=== PATIENT | male | born 1945 | race Caucasian/White ===

== ENCOUNTER → 2017-12-11 | Outpatient (CLI) | payer OTHER | END | disposition home or self-care (01) | LOC: LABWHC1 09:38 | PROVIDERS: ATTEND Orthopaedic Surgery | DX: Z01.812 Encounter for preprocedural laboratory examination (principal) | CPT/HCPCS: 87070 ==

== ENCOUNTER 2017-12-23 06:13 | Inpatient (IN) | payer OTHER ==
[2017-12-15 11:21] VITALS: BMI 40.6
--- NOTE | 2017-12-22 10:11 | HP ---
HISTORY AND PHYSICAL CHIEF COMPLAINT: Right hip pain. HISTORY OF PRESENT ILLNESS: The patient is a 72-year-old male who presents with progressive right hip pain secondary to osteoarthrosis. He notes the pain has worsened over the past 6 months. He has pain with any weightbearing activities. It limits him. He has been limping. He has tried anti-inflammatory medications with only partial temporary relief. PAST MEDICAL HISTORY: Significant for arthritis, depression, migraines in addition to hyperlipidemia and sleep apnea. PAST SURGICAL HISTORY: Significant for tonsillectomy and sinus surgery. FAMILY HISTORY: None known. SOCIAL HISTORY: Negative for current tobacco or alcohol use. REVIEW OF SYSTEMS: Sixteen point review of systems otherwise is reviewed and is noncontributory. PHYSICAL EXAMINATION: On examination, the patient is approximately 6 foot 3, 360 pounds of endomorphic habitus. HEENT exam is nonfocal. Neck is supple. He has passive motion right hip, flexion 75 degrees, external rotation with the hip flexed 60 degrees, internal rotation is -5 degrees with pain. He has approximately 1 cm clinical shortening of the right lower extremity compared to the left. His distal neurovascular exam otherwise appears intact in the right lower extremity. AP and lateral views of the right hip obtained in the office show severe osteoarthrosis with [id number] changes. IMPRESSION: 1. Right hip severe osteoarthrosis. 2. Increased body mass index. RECOMMENDATIONS: I talked to the patient at length regarding his condition and treatment options. At this point, he is quite symptomatic and opts to proceed with surgery. We will plan to proceed with right total hip arthroplasty. We will institute DVT prophylaxis postoperatively. DELORES / ADAN: [id number] /
[~2017-12-23 06:13] MED LIST: ACETAMINOPHEN TAB 500 MG TAB PO ONE; DEXAMETHASONE SOD PHOSPHATE 10 MG/ML 1 ML VIAL IV ONE; HYDROmorphone 0.5 MG/0.5 ML SYRINGE IVP PRN; LIDOCAINE 1% 20 ML VIAL (10MG/ML) FOR IV START INTRADERMA PRN; MELOXICAM 7.5 MG TAB PO ONE; MIDAZOLAM 2 MG/2 ML VIAL IV PRN; MORPHINE SULFATE 2 MG/ML SYRINGE IV PRN; ONDANSETRON ODT 4 MG TAB PO ONE; SCOPOLAMINE 1.5MG/72HR PATCH TRANSDERM ONE; TRANEXAMIC ACID 1,000 MG in SODIUM CHLORIDE 0.9% 50 ML IVPB ONE
[2017-12-23] MEDS: LACTATED RINGERS 1,000 ML IV SCH (07:24)
[2017-12-23] MEDS ORDERED: ONDANSETRON 4 MG/2 ML VIAL IVP ONE (07:27)
[2017-12-23] MEDS ORDERED: SODIUM CHLORIDE 0.9% 100 ML BAG ONE (08:06)
[2017-12-23] MEDS ORDERED: fentaNYL (PF) 50 MCG/ML 2 ML AMP ONE (08:06)
[2017-12-23] MEDS ORDERED: TRANEXAMIC ACID 1,000 MG/10 ML VIAL ONE (08:06)
[2017-12-23] MEDS ORDERED: MIDAZOLAM 2 MG/2 ML VIAL ONE (08:06)
[2017-12-23] MEDS ORDERED: PROPOFOL 10 MG/ML 20 ML VIAL IV ONE (08:06)
[2017-12-23] MEDS ORDERED: ceFAZolin 3,000 MG in SODIUM CHLORIDE 0.9% IRRIGATIO 3,000 ML IRRIGATION ONE (08:38)
[2017-12-23] MEDS ORDERED: LACTATED RINGERS 1,000 ML IV ONE (09:32)
[2017-12-23] MEDS ORDERED: MORPHINE SULFATE 4 MG/ML SYRINGE IV PRN ×2 (10:00)
[2017-12-23] MEDS ORDERED: MORPHINE SULFATE 4 MG/ML SYRINGE IVP PRN (10:00)
[2017-12-23] MEDS ORDERED: ACETAMINOPHEN TAB 325 MG TAB PO PRN (10:00)
[2017-12-23] MEDS ORDERED: HYDROcodone/APAP 7.5-325MG 1 EACH TAB PO PRN (10:00)
[2017-12-23] MEDS ORDERED: MAGNESIUM HYDROXIDE 2,400 MG/10 ML CUP PO PRN (10:00)
[2017-12-23] MEDS ORDERED: NALOXONE 0.4 MG/ML 1 ML VIAL IV PRN (10:00)
[2017-12-23] MEDS ORDERED: ONDANSETRON 4 MG/2 ML VIAL IVP PRN ×2 (10:00→21:07)
[2017-12-23] MEDS: fentaNYL (PF) 50 MCG/ML 2 ML AMP IV ONE ×2 (10:35→11:30)
--- NOTE | 2017-12-23 10:36 | P.OP ---
Date of Procedure: 12/23/17 Preoperative Diagnosis: Right hip severe osteoarthrosis Postoperative Diagnosis: Same Procedure(s) Performed: Right total hip arthroplasty-lateral approach Implants: Depuy Corail size 13 KLA press-fit femoral stem, 36 mm +5 cobalt chrome femoral head, 62 mm Crocker acetabular shell with neutral polyethylene liner. Anesthesia: spinal Surgeon: Michael Jimenez Director Rehabilitation Program #1: Franklin Reyes Estimated Blood Loss (ml): 300 Pathology: other (Femoral head) Condition: stable Disposition: PACU Indications for Procedure: The patient is a 72-year-old male who presents with progressive right hip pain secondary to osteoarthrosis despite conservative measures. A discussion of the risks and benefits of operative intervention versus continued conservative measures was made with the patient. He opted to proceed with surgery. Operative risks to include infection, neurovascular injury, development of blood clots, possible component loosening, possible leg length discrepancy, possible dislocation and need for subsequent procedures was discussed. Informed consent was obtained. Operative Findings: As below Description of Procedure: The patient was brought to the operating room, and after induction of spinal anesthesia was placed in the lateral decubitus position. The bony prominences were appropriately padded. The pelvis was stabilized perpendicular to the floor with a pegboard. The right lower extremity was prepped and draped in normal fashion. Previous preoperative templating had been performed to estimate component positioning and sizes. A 15 cm incision was then made centered over the greater trochanter extending superiorly to level ASIS and distally in line with the femoral shaft. The skin and subcutaneous tissues were divided sharply. Electrocautery was used for hemostasis. The fascia michael and gluteus jazlyn fascia was split in line with the skin incision. The muscle fibers were bluntly dissected proximally. A self-retaining retractor was then placed. The anterior and posterior margins of the gluteus medius muscles identified and the anterior two thirds detached from the greater trochanter with electrocautery. The gluteus minimus tendon was identified and detached in a similar fashion. The capsular layer was identified. A wide capsulotomy was performed. The hip was gently dislocated. The head was then resected with a sagittal saw at a 45 angle to the shaft proximately 1 1/2 cm above the level of the lesser trochanter. The head was then extracted. Attention was then paid towards preparing the acetabulum. Retractors were placed anterior and posteriorly. The remaining labral and capsular tissues debrided sharply clearly defining the acetabular margins. I began reaming with a 52 mm reamer taking care to initially medialize, then reaming at 45 of abduction and 20 of anteversion. Sequential reaming is performed up to 61 mm. This was done to a bleeding bony surface. A trial 62 mm acetabular shell was inserted in the same orientation and was fully seated. There was good rim fit and stability. The final implant was inserted in the same orientation and was fully seated. Again there was good rim fit and stability. With his increased body mass index I decided to add a 6.5 mm x 30 mm cancellus screw for additional fixation. Good purchase was obtained. A neutral polyethylene liner was gently impacted. Care was taken to avoid any soft tissue interposition. Pulsatile lavage was utilized. Attention was then paid towards preparing the proximal femur. A box chisel was used to open the metaphyseal region. A canal finder was used to find the femoral canal. Sequential broaching was performed with the leg perpendicular to the floor in 15 of anteversion up to a size 13 broach. A calcar mill was used to fashion the medial calcar. I utilized the KLA neck along with a 36 mm +5 trial head. The hip was gently reduced. It was taken through range of motion. I good stability in flexion and extension with internal and external rotation. I felt there was adequate holiness of soft tissue tension. The hip was gently dislocated. The trial components were then removed. The final size 13 collared KLA press-fit stem was inserted with the leg perpendicular to the floor in 15 of anteversion. This was fully seated. There was good rotational stability. A 36 mm +5 cobalt chrome femoral head was gently impacted. The hip was gently reduced. Again it was taken through range of motion and felt to be stable in flexion and extension with internal and external rotation. Again I felt there was adequate holiness of soft tissue tension. Pulsatile lavage was again utilized. The gluteus medius and minimus tendons reattached the greater trochanter with #2 Ethibond suture. A deep drain was placed exiting laterally. The fascia michael and the gluteus jazlyn fascia was closed with running #2 Ethibond suture. The deep subcutaneous tissues were reapproximated with interrupted 0 Vicryl suture. Subcu tissues reapproximated interrupted 2-0 Vicryl sutures. The skin was reapproximated with 3-0 strata fix suture. Skin tape and adhesive was applied. A sterile dressing was applied. The patient was then awoken from sedation and transferred to recovery room in good condition. Blood loss was estimated at 300 mL. No complications were incurred. Sponge and needle counts were correct at the end the case.
--- NOTE | 2017-12-23 10:53 | XR ---
EXAMINATION TYPE: XR Hip Limited RT DATE OF EXAM: 12/23/2017 COMPARISON: NONE HISTORY: 72-year-old male status post hip surgery, assess surgical alignment TECHNIQUE: Portable AP view FINDINGS: Image shows placement of right hip total arthroplasty. Both acetabular cup and femoral short stemmed components appear well-seated without periprosthetic fracture. Alignment grossly anatomic. A surgical drain is present. IMPRESSION: Uncomplicated postoperative appearance right total hip arthroplasty.
[2017-12-23 13:08] VITALS: RESP 16
[2017-12-23] MEDS: traMADol 50 MG TAB PO SCH ×3 (13:20→23:05)
--- NOTE | 2017-12-23 13:58 | P.CONS ---
History of Present Illness - History of Present Illness he patient is a 72-year-old male who presents with progressive right hip pain secondary to osteoarthrosis , migraine, sleep apnea, depression Patient was admitted for right hip surgery for his history of arthritis after he failed outpatient medical management and he opted to proceed with surgery We have been consulted for medical management Review of Systems 14 point systemic review were negative except as mentioned in HPI Past Medical History Past Medical History: Hearing Disorder / Deafness, Osteoarthritis (OA), Sleep Apnea/CPAP/BIPAP Additional Past Medical History / Comment(s): RT HIP OA. LT FOOT ORTHOTIC. USES CPAP. History of Any Multi-Drug Resistant Organisms: None Reported Past Surgical History: Tonsillectomy Additional Past Surgical History / Comment(s): SINUS SURGERY. Past Anesthesia/Blood Transfusion Reactions: No Reported Reaction Additional Past Anesthesia/Blood Transfusion Reaction / Comm: UNKNOWN FAMILY HX , ADOPTED. Past Psychological History: Depression Smoking Status: Former smoker Past Alcohol Use History: Rare Additional Past Alcohol Use History / Comment(s): SMOKED 6-7 YEARS, 1PPD EST, QUIT 1977 Past Drug Use History: None Reported - Past Family History Father Family Medical History: Unable to Obtain Mother Family Medical History: No Reported History Medications and Allergies Home Medications Medication Instructions Recorded Confirmed Type Aspirin [Adult Low Dose Aspirin EC] 81 mg PO DAILY 12/15/17 12/23/17 History Citalopram Hydrobromide [CeleXA] 20 mg PO DAILY 12/15/17 12/23/17 History Multivitamins, Thera [Multivitamin 1 tab PO DAILY 12/15/17 12/23/17 History (formulary)] Naproxen Sodium [Aleve] 220 mg PO BID 12/15/17 12/23/17 History Naproxen [Naprosyn] 500 mg PO Q12HR 12/15/17 12/23/17 History SUMAtriptan SUCCINATE [Imitrex] 100 mg PO BID PRN 12/15/17 12/23/17 History Simvastatin [Zocor] 40 mg PO HS 12/15/17 12/23/17 History buPROPion [Wellbutrin] 75 mg PO BID 12/15/17 12/23/17 History Rivaroxaban [Xarelto] 10 mg PO DAILY #28 tab 12/23/17 Rx Allergies Allergy/AdvReac Type Severity Reaction Status Date / Time No Known Allergies Allergy Verified 12/23/17 10:31 Physical Exam Vitals: Vital Signs Temp Pulse Resp BP Pulse Ox 12/23/17 12:15 98.3 F 60 16 146/80 99 12/23/17 12:00 60 20 133/83 96 12/23/17 11:45 61 16 133/83 97 12/23/17 11:30 54 L 16 128/76 97 12/23/17 11:15 57 L 16 133/75 95 12/23/17 11:00 56 L 16 127/71 95 12/23/17 10:45 57 L 16 135/70 93 L 12/23/17 10:30 57 L 20 122/71 95 12/23/17 10:22 97.6 F 58 L 28 H 127/70 96 12/23/17 07:11 98.7 F 81 16 144/86 98 Intake and Output 12/22/17 12/23/17 12/23/17 22:59 06:59 14:59 Intake Total 2151 Output Total 745 Balance 1406 Intake: IV 2151 Output: Drainage 70 Right Hip 70 Urine 275 Estimated Blood Loss 400 Other: Voiding Method Indwelling Catheter Weight 147.418 kg Constitutional: No acute distress, conversant, pleasant Eyes: Anicteric sclerae, moist conjunctiva, no lid-lag PERRLA ENMT: NC/AT Oropharynx clear, no erythema, exudates Neck: Supple, FROM, no masses, or JVD No carotid bruits No thyromegaly Lungs: Clear to auscultation Clear to percussion Normal respiratory effort, no accessory muscle use Cardiovascular: Heart regular in rate and rhythm, No murmurs, gallops, or rubs No peripheral edema Abdominal: Soft Nontender, no guarding, rebound or rigidity Abdomen moving with respiration Normoactive bowel sounds No hepatomegaly, No splenomegaly No palpable mass No abdominal wall hernia noted Skin: Normal temperature, tone, texture, turgor No induration No subcutaneous nodules No rash, lesions No ulcers Extremities: No digital cyanosis No clubbing Pedal pulses intact and symmetrical Radial pulses intact and symmetrical Normal gait and station No calf tenderness Psychiatric: Alert and oriented to person, place and time Appropriate affect Intact judgement Neuro: Muscles Strength 5/5 in all 4 extremities Sensation to light touch grossly present throughout Cranial nerves II-XII grossly intact No focal sensory deficits Assessment and Plan Assessment: osteoarthritis, status post total right hip arthroplasty Migraine Sleep apnea Plan: patient is status post right hip arthroplasty, with history of migraine and sleep apnea patient looks his stable from a medical standpoint Imitrex when necessary Continue with GI, DVT,prophylaxis and pain treatment as per primary team recommend the patient follow-up with his PCP within one week after discharge Thank you for taking the chance to take care of this patient, please feel free to contact us for further questioning or clarification
[2017-12-23] MEDS: SUMAtriptan SUCCINATE 50 MG TAB PO PRN ×2 (14:38→19:30)
[2017-12-23] MEDS: DIAZEPAM 5 MG TAB PO PRN (14:39)
[2017-12-23] MEDS ORDERED: ceFAZolin 3 GM in SODIUM CHLORIDE 0.9% 100 ML IVPB SCH (16:00)
[2017-12-23] MEDS: SENNOSIDES-DOCUSATE SODIUM 1 EACH TAB PO SCH (19:19)
[2017-12-24] MEDS: HYDROcodone/APAP 5-325MG 1 EACH TAB PO PRN ×3 (01:31→20:57)
[2017-12-24] MEDS: LACTATED RINGERS 1,000 ML IV SCH (02:54)
[2017-12-24] MEDS ORDERED: MORPHINE ORAL SOLN 10 MG/5 ML CUP PO PRN ×3 (07:55→07:56)
[2017-12-24 07:57] LABS: Basophils % (A) 0 %; Eosinophils # (A) 0.1 k/uL (0-0.7); Eosinophils % (A) 1 %; HCT 37.4 % (39.0-53.0); Lymphocytes # (A) 1.3 k/uL (1.0-4.8); Lymphocytes % (A) 13 %; MCH 28.1 pg (25.0-35.0); MCV 87.7 fL (80.0-100.0); Mean Platelet Volume 8.9; Monocytes # (A) 0.9 k/uL (0-1.0); Monocytes % (A) 9 %; Neutrophils # (A) 7.6 k/uL (1.3-7.7); Neutrophils % (A) 75 %; Platelet Count 155 k/uL (150-450); RBC 4.26 m/uL (4.30-5.90); RDW 13.8 % (11.5-15.5); WBC 10.1 k/uL (3.8-10.6)
[2017-12-24] MEDS: FAMOTIDINE 20 MG TAB PO SCH (08:19)
[2017-12-24] MEDS: RIVAROXABAN 10 MG TAB PO SCH (08:19)
[2017-12-24] MEDS: traMADol 50 MG TAB PO SCH ×4 (09:42→23:42)
[2017-12-24] MEDS: SUMAtriptan SUCCINATE 50 MG TAB PO PRN (18:03)
[2017-12-24] MEDS: SENNOSIDES-DOCUSATE SODIUM 1 EACH TAB PO SCH (20:57)
[2017-12-24] MEDS: DIAZEPAM 5 MG TAB PO PRN (21:03)
[2017-12-25] MEDS: LACTATED RINGERS 1,000 ML IV SCH (00:33)
[2017-12-25 03:04] VITALS: PULSE 70
[2017-12-25] MEDS: HYDROcodone/APAP 5-325MG 1 EACH TAB PO PRN ×2 (05:18→12:03)
[2017-12-25 08:32] VITALS: BP 110/68; TEMP 98.2
[2017-12-25] MEDS: RIVAROXABAN 10 MG TAB PO SCH (08:43)
[2017-12-25] MEDS: traMADol 50 MG TAB PO SCH ×2 (08:43→14:12)
[2017-12-25] MEDS: FAMOTIDINE 20 MG TAB PO SCH (09:22)
--- NOTE | 2017-12-25 11:36 | P.PN ---
Subjective Progress Note Date: 12/25/17 Principal diagnosis: Status post right total hip arthroplasty Patient is seen today resting in his hospital chair. He appears comfortable, he denies any acute pain. He states that the headache has improved significantly since yesterday. He continues to ambulate well with therapy. He denies any headaches, lightheadedness, chest pain or shortness of breath. Objective - Vital Signs Vital signs: Vital Signs Temp 98.2 F 12/25/17 07:30 Pulse 70 12/25/17 07:30 Resp 16 12/25/17 07:30 BP 110/68 12/25/17 07:30 Pulse Ox 94 L 12/25/17 07:30 Intake & Output 12/24/17 12/25/17 12/25/17 18:59 06:59 18:59 Intake Total 2078 2210 150 Output Total 1100 1180 Balance 978 1030 150 Intake: Oral 2078 2210 150 Output: Urine 1100 [address] Urethral 700 Other: Voiding Method Indwelling Catheter Urinal Toilet Urinal # Voids 1 2 1 - Exam Right lower extremity: Incisions clean, dry and intact. Minimal soft tissue swelling and ecchymosis present around the incision. The calf is soft, no tenderness with palpation. Plantar flexion, dorsiflexion, EHL, FHL are intact. Dorsal pedis pulses 2+, his sensory exam to light touch is intact. - Labs CBC & Chem 7: 12/24/17 07:19 Assessment and Plan Plan: Assessment: 1. Postop day #2 status post right total hip arthroplasty Plan: 1. Pain control, we'll discharge home on oral medications 2. GI and DVT prophylaxis, we'll discharge home on Eliquis 2.5 mg twice a day for 30 days 3. Home therapy and nursing after discharge 4. Wound care instructions were discussed with patient at bedside today 5. Medical recommendations 6. Discharge planning: Patient will be discharged home today Time with Patient: Less than 30
--- NOTE | 2017-12-25 11:40 | P.DS ---
Providers Date of admission: 12/23/17 06:13 Expected date of discharge: 12/25/17 Attending physician: Michael Jimenez Consults: 12/23/17 10:04 Consult Physician Routine Consulting Provider: Saima Farah Consult Reason/Comments: medical management Do you want consulting provider notified?: Yes Primary care physician: [facility] Hospital Course: Date of admission: 12/23/2017 Date of discharge: 12/25/2017 Admission diagnosis: Status post right total hip arthroplasty Discharge diagnosis: Same Attending physician: Dr. Jimenez Surgical procedures: Right total hip arthroplasty Brief history: Patient is a 72-year-old male with a history of with progressive primary right hip osteoarthritis. At this point patient has failed conservative treatment measures and has opted to proceed with a elective right total hip arthroplasty. Hospital course: Details of patient's surgery can be found in operative report. Patient tolerated the procedure well and was subsequently transported to orthopedic floor. Patient's orthopeidc and medical care was provided daily. Patient had daily laboratory tests performed for evaluation of overall blood counts. Patient had daily physical therapy to include strengthening range of motion as well as education with walker ambulation. Patient was treated with Xarelto for their postoperative DVT prophylaxis during their inpatient stay. Patient was noted to have a relatively uneventful postoperative course. Patient reported satisfactory pain control with oral pain medications by postoperative day 0. Patient showed satisfactory progress with physical therapy. Patient moved steadily through the program and had no difficulty meeting the goals by postoperative day 2. Given patient's otherwise satisfactory course and having met physical therapy goals, plan is to discharge patient home on postoperative day 2. Discharge condition/disposition: Patient will be discharged home in stable condition. Discharge medications: Instructions are given on resumption of patient's normal daily medications per primary care recommendation, in addition patient will be prescribed Ruthven 5 mg/325 mg, Colace 100mg, Eliquis 2.5mg. Discharge instructions: 1. Wound care and infection precautions, keep incision dry and covered while showering, no lotions, creams, moisturizers. No soaking, tubs, pools, hottubs. Do not scrub over the incision. 2. Weight-bear as tolerated with walker / cane until follow-up. 3. Ice and elevate when necessary. Do not exceed 20 minutes per hour with ice pack. 4. Utilize compression sleeve until seen at first follow up appointment. 5. Visiting nursing care. 6. Home physical therapy 7. Pain meds and anticoagulants per prescription. 8. Pain medication has potential to cause constipation. Increase oral fluid and fiber intake. Contact primary care provider if you have not had a bowel movement within 48 hours after discharge 9. No anti-inflammatory medication until discussed at first post operative visit, this including Motrin, Aleve, Mobic, Diclofenac. 10. Follow up in office at 2 weeks postop with Elvis Reyes PA-C 11. Follow up with your primary care doctor 7-10 days after discharge. 12. Contact [facility] with any questions, . Procedures: Right total hip arthroplasty Patient Condition at Discharge: Good Plan - Discharge Summary Discharge Rx Participant: Yes New Discharge Prescriptions: New Apixaban [Eliquis] 2.5 mg PO BID #60 tab Docusate [Colace] 100 mg PO DAILY #30 capsule Hydrocodone/Acetaminophen [Ruthven 5-325] 1 - 2 each PO Q6HR PRN #60 tab PRN Reason: Pain No Action buPROPion [Wellbutrin] 75 mg PO BID Simvastatin [Zocor] 40 mg PO HS Citalopram Hydrobromide [CeleXA] 20 mg PO DAILY SUMAtriptan SUCCINATE [Imitrex] 100 mg PO BID PRN PRN Reason: Migraine Headache Aspirin [Adult Low Dose Aspirin EC] 81 mg PO DAILY Multivitamins, Thera [Multivitamin (formulary)] 1 tab PO DAILY Discharge Medication List Aspirin [Adult Low Dose Aspirin EC] 81 mg PO DAILY 12/15/17 [History] Citalopram Hydrobromide [CeleXA] 20 mg PO DAILY 12/15/17 [History] Multivitamins, Thera [Multivitamin (formulary)] 1 tab PO DAILY 12/15/17 [History ] SUMAtriptan SUCCINATE [Imitrex] 100 mg PO BID PRN 12/15/17 [History] Simvastatin [Zocor] 40 mg PO HS 12/15/17 [History] buPROPion [Wellbutrin] 75 mg PO BID 12/15/17 [History] Apixaban [Eliquis] 2.5 mg PO BID #60 tab 12/25/17 [Rx] Docusate [Colace] 100 mg PO DAILY #30 capsule 12/25/17 [Rx] Hydrocodone/Acetaminophen [Ruthven 5-325] 1 - 2 each PO Q6HR PRN #60 tab 12/25/17 [Rx] Follow up Appointment(s)/Referral(s): Franklin Reyes, [facility] [PHYSICIAN [employer]] - 01/07/18 3:00 pm [facility] Vis[facility] Nurse, [NON-STAFF] - [facility],Clinic [Primary Care Provider] - 01/01/18 3:00 pm ([phone]. With Bryce Starkey) Activity/Diet/Wound Care/Special Instructions: Orthopedic Discharge Instructions: 1. Wound care and infection precautions, keep incision dry and covered while showering, no lotions, creams, moisturizers. No soaking, pools, hot tubs. Do not scrub over incision. 2. Weight-bear as tolerated with walker / cane until follow-up. 3. Ice and elevate when necessary. Do not exceed 20 minutes per hour with ice pack. 4. Utilize compression sleeve until seen at first follow up appointment. 5. Visiting nursing care. 6. Home physical therapy. 7. Pain meds and anticoagulants per prescription. 8. Pain medication has potential to cause constipation. Increase oral fluid and fiber intake. Contact primary care provider if you have not had a bowel movement within 48 hours after discharge. 9. No anti-inflammatory medication until discussed at first post operative visit, this including Motrin, Aleve, Mobic, Diclofenac. 10. Follow up in office at 2 weeks postop with Elvis Reyes PA-C 11. Follow up with your primary care doctor 7-10 days after discharge. 12. Contact [facility] with any questions, . Discharge Disposition: HOME WITH HOME HEALTH SERVICES
== END 2017-12-25 15:00 | disposition home health service (06) | DRG 470 ==
LOC: 2ORMAIN 06:13 → 3SUR 11:49
PROVIDERS: ADMIT Orthopaedic Surgery; ATTEND Orthopaedic Surgery
PROC: 0SR902A Replacement of Right Hip Joint with Metal on Polyethylene Synthetic Substitute, Uncemented, Open Approach (ICD-10-PCS; principal; 2017-12-23 08:00)
DX: M16.11 Unilateral primary osteoarthritis, right hip (principal); Z68.41 Body mass index [BMI] 40.0-44.9, adult; F32.9 Major depressive disorder, single episode, unspecified; G43.909 Migraine, unspecified, not intractable, without status migrainosus; E78.5 Hyperlipidemia, unspecified; G47.30 Sleep apnea, unspecified; H91.90 Unspecified hearing loss, unspecified ear; E66.9 Obesity, unspecified; R73.03 Prediabetes; Z79.82 Long term (current) use of aspirin; Z79.1 Long term (current) use of non-steroidal anti-inflammatories (NSAID); Z79.899 Other long term (current) drug therapy; Z79.01 Long term (current) use of anticoagulants; Z87.891 Personal history of nicotine dependence
CPT/HCPCS: 36415; 73501; 85025; 86850; 86900; 86901; 88300; 94760

== ENCOUNTER 2019-01-25 10:48 | Day surgery (SDC) | payer OTHER ==
[2019-01-22 09:05] VITALS: BMI 41.2
[~2019-01-25 10:48] MED LIST changes: -ACETAMINOPHEN TAB 500 MG TAB PO ONE; -DEXAMETHASONE SOD PHOSPHATE 10 MG/ML 1 ML VIAL IV ONE; -HYDROmorphone 0.5 MG/0.5 ML SYRINGE IVP PRN; +LACTATED RINGERS 1,000 ML IV SCH; -MELOXICAM 7.5 MG TAB PO ONE; -MIDAZOLAM 2 MG/2 ML VIAL IV PRN; -MORPHINE SULFATE 2 MG/ML SYRINGE IV PRN; -ONDANSETRON ODT 4 MG TAB PO ONE; -SCOPOLAMINE 1.5MG/72HR PATCH TRANSDERM ONE; -TRANEXAMIC ACID 1,000 MG in SODIUM CHLORIDE 0.9% 50 ML IVPB ONE
[2019-01-25 11:05] VITALS: TEMP 98.9
[2019-01-25] MEDS ORDERED: PROPOFOL 10 MG/ML 20 ML VIAL IV ONE (12:36)
[2019-01-25] MEDS ORDERED: LIDOCAINE 1% INJ 10MG/ML (20 ML MDV) ONE (12:36)
--- NOTE | 2019-01-25 13:08 | P.PCN ---
Date of Procedure: 01/25/19 Procedure(s) Performed: Procedure: Total colonoscopy. Preoperative diagnosis: Screening for neoplasia. Postoperative diagnosis: Sigmoid diverticulosis with no evidence of acute diverticulitis, strictures, significant polyps or cancer. Preparation: HalfLytely prep. Sedation: Was provided by anesthesia. Brief clinical history: The patient is a 73-year-old male scheduled for this evaluation for screening for neoplasia. The patient had a prior exam more than 25 years ago and he believes he may have had a polyp or tumor removed at that time. He has no abdominal complaints, bleeding or anemia. Procedure: With the patient on his left lateral decubitus position and after informed consent and adequate sedation, the perianal area was inspected and it did not show any fissures or fistulas. There were no masses felt on digital rectal examination. The Olympus CFH 190L video colonoscope was then inserted in the rectum in the usual fashion and advanced to the cecum. The preparation was less than ideal on the right side and cecum with thick fecal secretions and thick debris. Several diverticular orifices were seen scattered in the sigmoid with no definite of acute diverticulitis or strictures. No polyps or tumors were seen. I retroflexed the endoscope in the rectum before the endoscope was withdrawn. The patient tolerated the procedure well. Plan: The patient was reassured. Discussed dietary measures. In light of his less than ideal preparation on the right side and cecum, I suggested repeat this exam in 5 years. He will follow up with you as planned.
[2019-01-25 13:10] VITALS: RESP 18
[2019-01-25 13:25] VITALS: BP 120/71; PULSE 64
== END 2019-01-25 13:52 | disposition home or self-care (01) ==
LOC: ORWHC2ENDO 10:48
DX: Z12.11 Encounter for screening for malignant neoplasm of colon (principal); K57.30 Diverticulosis of large intestine without perforation or abscess without bleeding; G47.33 Obstructive sleep apnea (adult) (pediatric); F39 Unspecified mood [affective] disorder; Z87.891 Personal history of nicotine dependence; Z79.899 Other long term (current) drug therapy; Z79.82 Long term (current) use of aspirin; Z79.1 Long term (current) use of non-steroidal anti-inflammatories (NSAID)
CPT/HCPCS: J2001; J2704; G0121

== ENCOUNTER 2021-07-19 09:10 | Emergency (ER) | payer OTHER ==
[2021-07-19 09:23] VITALS: TEMP 98.5
[2021-07-19] MEDS ORDERED: ACETAMINOPHEN TAB 500 MG TAB PO STA (09:35)
[2021-07-19] MEDS ORDERED: SODIUM CHLORIDE 0.9% 500 ML 500 ML IV ONE ×2 (09:35→12:11)
[2021-07-19] MEDS ORDERED: MORPHINE SULFATE 4 MG/ML SYRINGE IVP STA (09:35)
--- NOTE | 2021-07-19 09:38 | ED ---
General Adult HPI - General Chief complaint: Chest Pain Stated complaint: chest tightness, headache Time Seen by Provider: 07/19/21 09:25 Source: patient, RN notes reviewed, old records reviewed Mode of arrival: wheelchair Limitations: no limitations - History of Present Illness Initial comments: 75-year-old male history of headache presents with worsening headache over the past one week. This has become more severe over the past 24 hours. He has ta petty sumatriptan at home without significant relief. He has a history of migraine headaches. He states he's had a nasal congestion and significant rhinorrhea over the past one week. He is fully vaccinated against coronavirus with 3 total vaccines. He denies fever. He's had some chest tightness. No central chest pain. No vomiting or diarrhea. Chief complaint is headache. - Related Data Home Medications Medication Instructions Recorded Confirmed Aspirin EC [Ecotrin Low Dose] 81 mg PO DAILY 07/19/21 07/19/21 Citalopram Hydrobromide [CeleXA] 20 mg PO DAILY 07/19/21 07/19/21 Meloxicam [Mobic] 15 mg PO DAILY 07/19/21 07/19/21 Multivitamins, Thera [Multivitamin 1 tab PO DAILY 07/19/21 07/19/21 (formulary)] SUMAtriptan SUCCINATE [Imitrex] 100 mg PO DAILY PRN 07/19/21 07/19/21 Simvastatin [Zocor] 40 mg PO HS 07/19/21 07/19/21 buPROPion [Wellbutrin] 75 mg PO TID 07/19/21 07/19/21 Allergies Allergy/AdvReac Type Severity Reaction Status Date / Time No Known Allergies Allergy Verified 07/19/21 12:01 Review of Systems ROS Statement: Those systems with pertinent positive or pertinent negative responses have been documented in the HPI. ROS Other: All systems not noted in ROS Statement are negative. Past Medical History Past Medical History: Osteoarthritis (OA), Sleep Apnea/CPAP/BIPAP Additional Past Medical History / Comment(s): migraines, History of Any Multi-Drug Resistant Organisms: None Reported Past Surgical History: Joint Replacement, Tonsillectomy Additional Past Surgical History / Comment(s): SINUS SURGERY, colonoscopy, rt hip replacement Past Anesthesia/Blood Transfusion Reactions: No Reported Reaction, Unable to Obtain Additional Past Anesthesia/Blood Transfusion Reaction / Comment(s): UNKNOWN FAMILY HX, ADOPTED. Past Psychological History: Depression Smoking Status: Never smoker Past Alcohol Use History: Rare Past Drug Use History: None Reported - Past Family History Father Family Medical History: Unable to Obtain Mother Family Medical History: Unable to Obtain General Exam Limitations: no limitations General appearance: alert, in no apparent distress Head exam: Present: atraumatic, normocephalic Eye exam: Present: normal appearance, PERRL ENT exam: Present: normal exam Neck exam: Present: normal inspection. Absent: tenderness, meningismus Respiratory exam: Present: normal lung sounds bilaterally. Absent: respiratory distress, wheezes Cardiovascular Exam: Present: regular rate, normal rhythm GI/Abdominal exam: Present: soft. Absent: distended, tenderness, guarding Extremities exam: Present: normal inspection, normal capillary refill. Absent: pedal edema Neurological exam: Present: alert, oriented X3, CN II-XII intact. Absent: motor sensory deficit Psychiatric exam: Present: normal affect, normal mood Skin exam: Present: warm, dry, intact. Absent: cyanosis, diaphoretic Course Vital Signs 07/19/21 07/19/21 07/19/21 09:21 10:56 12:27 Temperature 98.5 F Pulse Rate 66 75 75 Respiratory 19 16 16 Rate Blood Pressure 137/87 142/84 137/77 O2 Sat by Pulse 97 96 96 Oximetry EKG Findings - EKG Comments: EKG Findings:: EKG: Sinus rhythm with first-degree AV block, bifascicular block, rate 78, WI interval 244, QRS duration 166, QTC 517, no ST segment elevation. Medical Decision Making - Medical Decision Making 75-year-old male presenting for evaluation of headache. Typical of his normal migraine headache however more severe, gradual in onset. CT is performed which is negative for intracranial hemorrhage or mass effect. On reevaluation he is feeling much better. Headache nearly resolved. I did do a workup including EKG, and laboratory testing including troponin for t his patient because he had complained of some chest tightness associated with an upper respiratory infection. This workup was essentially negative, chest x-rays clear, troponin negative, coronavirus testing negative. Patient reassured. He will follow-up with his primary care physician. Strict return parameters are discussed. - Lab Data Result diagrams: 07/19/21 09:56 07/19/21 09:56 Lab Results 07/19/21 07/19/21 07/19/21 Range/Units 09:56 09:56 09:56 WBC 9.0 (3.8-10.6) k/uL RBC 4.66 (4.30-5.90) m/uL Hgb 13.7 (13.0-17.5) gm/dL Hct 41.8 (39.0-53.0) % MCV 89.8 (80.0-100.0) fL MCH 29.5 (25.0-35.0) pg MCHC 32.8 (31.0-37.0) g/dL RDW 13.0 (11.5-15.5) % Plt Count 185 (150-450) k/uL MPV 7.4 Neutrophils % 80 % Lymphocytes % 11 % Monocytes % 5 % Eosinophils % 2 % Basophils % 1 % Neutrophils # 7.2 (1.3-7.7) k/uL Lymphocytes # 1.0 (1.0-4.8) k/uL Monocytes # 0.4 (0-1.0) k/uL Eosinophils # 0.2 (0-0.7) k/uL Basophils # 0.0 (0-0.2) k/uL PT 9.9 (9.0-12.0) sec INR 0.9 (<1.2) APTT 22.2 (22.0-30.0) sec Sodium (137-145) mmol/L Potassium (3.5-5.1) mmol/L Chloride (98-107) mmol/L Carbon Dioxide (22-30) mmol/L Anion Gap mmol/L BUN (9-20) mg/dL Creatinine (0.66-1.25) mg/dL Est GFR (CKD-EPI)AfAm (>60 ml/min/1.73 sqM) Est GFR (CKD-EPI)NonAf (>60 ml/min/1.73 sqM) Glucose (74-99) mg/dL Calcium (8.4-10.2) mg/dL Magnesium (1.6-2.3) mg/dL Total Bilirubin (0.2-1.3) mg/dL AST (17-59) U/L ALT (4-49) U/L Alkaline Phosphatase (38-126) U/L Troponin I (0.000-0.034) ng/mL Total Protein (6.3-8.2) g/dL Albumin (3.5-5.0) g/dL Coronavirus (PCR) Not Detected (Not Detectd) 07/19/21 07/19/21 Range/Units 09:56 09:56 WBC (3.8-10.6) k/uL RBC (4.30-5.90) m/uL Hgb (13.0-17.5) gm/dL Hct (39.0-53.0) % MCV (80.0-100.0) fL MCH (25.0-35.0) pg MCHC (31.0-37.0) g/dL RDW (11.5-15.5) % Plt Count (150-450) k/uL MPV Neutrophils % % Lymphocytes % % Monocytes % % Eosinophils % % Basophils % % Neutrophils # (1.3-7.7) k/uL Lymphocytes # (1.0-4.8) k/uL Monocytes # (0-1.0) k/uL Eosinophils # (0-0.7) k/uL Basophils # (0-0.2) k/uL PT (9.0-12.0) sec INR (<1.2) APTT (22.0-30.0) sec Sodium 135 L (137-145) mmol/L Potassium 4.4 (3.5-5.1) mmol/L Chloride 102 (98-107) mmol/L Carbon Dioxide 25 (22-30) mmol/L Anion Gap 8 mmol/L BUN 29 H (9-20) mg/dL Creatinine 0.87 (0.66-1.25) mg/dL Est GFR (CKD-EPI)AfAm >90 (>60 ml/min/1.73 sqM) Est GFR (CKD-EPI)NonAf 86 (>60 ml/min/1.73 sqM) Glucose 119 H (74-99) mg/dL Calcium 9.4 (8.4-10.2) mg/dL Magnesium 2.0 (1.6-2.3) mg/dL Total Bilirubin 0.7 (0.2-1.3) mg/dL AST 28 (17-59) U/L ALT 24 (4-49) U/L Alkaline Phosphatase 54 (38-126) U/L Troponin I <0.012 (0.000-0.034) ng/mL Total Protein 6.9 (6.3-8.2) g/dL Albumin 4.2 (3.5-5.0) g/dL Coronavirus (PCR) (Not Detectd) Disposition Clinical Impression: Headache, Viral syndrome Disposition: HOME SELF-CARE Condition: Fair Instructions (If sedation given, give patient instructions): Migraine Headache (ED) Is patient prescribed a controlled substance at d/c from ED?: No Referrals: [facility],Clinic [Primary Care Provider] - 1-2 days Time of Disposition: 12:32
[2021-07-19 10:15] LABS: Basophils % (A) 1 %; Eosinophils # (A) 0.2 k/uL (0-0.7); Eosinophils % (A) 2 %; HCT 41.8 % (39.0-53.0); HGB 13.7 gm/dL (13.0-17.5); Lymphocytes % (A) 11 %; MCH 29.5 pg (25.0-35.0); MCHC 32.8 g/dL (31.0-37.0); MCV 89.8 fL (80.0-100.0); Mean Platelet Volume 7.4; Monocytes # (A) 0.4 k/uL (0-1.0); Monocytes % (A) 5 %; Neutrophils # (A) 7.2 k/uL (1.3-7.7); Neutrophils % (A) 80 %; Platelet Count 185 k/uL (150-450); RBC 4.66 m/uL (4.30-5.90)
[2021-07-19 10:30] LABS: ALT 24 U/L (4-49); AST 28 U/L (17-59); African American GFR (CKD) >90 (>60 ml/min/1.73 sqM); Albumin 4.2 g/dL (3.5-5.0); Alkaline Phosphatase 54 U/L (38-126); Anion Gap 8 mmol/L; Blood Urea Nitrogen 29 mg/dL (9-20); Calcium 9.4 mg/dL (8.4-10.2); Carbon Dioxide 25 mmol/L (22-30); Chloride 102 mmol/L (98-107); Glucose 119 mg/dL (74-99); Non-African American GFR(CKD) 86 (>60 ml/min/1.73 sqM); Potassium 4.4 mmol/L (3.5-5.1); Sodium 135 mmol/L (137-145); Total Bilirubin 0.7 mg/dL (0.2-1.3); Total Protein 6.9 g/dL (6.3-8.2)
--- NOTE | 2021-07-19 10:38 | XR ---
EXAMINATION TYPE: XR chest 2V DATE OF EXAM: 07/19/2021 COMPARISON: NONE HISTORY: Chest tightness and headache. Chest pain. TECHNIQUE: Frontal and lateral views of the chest are obtained. FINDINGS: Underlying emphysematous changes thought present. There is no focal air space opacity, pleu ral effusion, or pneumothorax seen. The cardiac silhouette size is mildly enlarged. The osseous st ructures are intact. IMPRESSION: Chronic emphysematous change and mild cardiomegaly without acute pulmonary process.
[2021-07-19 10:40] LABS: INR 0.9 (<1.2); Partial Thromboplastin Time 22.2 sec (22.0-30.0); Prothrombin Time 9.9 sec (9.0-12.0)
[2021-07-19 10:58] VITALS: PULSE 75; RESP 16
--- NOTE | 2021-07-19 12:02 | CT ---
EXAMINATION TYPE: CT brain wo con DATE OF EXAM: 07/19/2021 HISTORY: Headache CT DLP: 1182.4 mGycm. Automated Exposure Control for Dose Reduction was Utilized. TECHNIQUE: CT scan of the head is performed without contrast. COMPARISON: CT brain November 16, 2015. FINDINGS: There is no acute intracranial hemorrhage or midline shift identified. There is mild to m oderate diffuse sulcal prominence greatest over bilateral frontal lobes redemonstrated. No hydrocepha minh. Rivera-white matter differentiation is maintained. The globes are intact and the visualized sinus es are clear. IMPRESSION: No acute intracranial hemorrhage or midline shift. No significant change from prior.
[2021-07-19] MEDS ORDERED: KETOROLAC 30 MG/ML 1 ML VIAL IVP STA (12:11)
[2021-07-19 12:27] VITALS: BP 137/77
== END 2021-07-19 13:08 | disposition home or self-care (01) ==
LOC: EC 09:10
DX: B34.9 Viral infection, unspecified (principal); G43.909 Migraine, unspecified, not intractable, without status migrainosus; Z20.822 Contact with and (suspected) exposure to COVID-19; M19.90 Unspecified osteoarthritis, unspecified site; F32.A Depression, unspecified; Z79.82 Long term (current) use of aspirin; Z79.899 Other long term (current) drug therapy; Z79.1 Long term (current) use of non-steroidal anti-inflammatories (NSAID)
CPT/HCPCS: 36415; 93005; 80053; 83735; 84484; 85025; 85610; 85730; 87635; 71046; 70450; 99285; 96374; 96375; J2270; J1885

== ENCOUNTER 2022-11-15 14:13 | Inpatient (IN) | payer OTHER, MEDICARE ==
[2022-11-15] MEDS ORDERED: ASPIRIN 81 MG PO STA (14:40)
[2022-11-15] MEDS ORDERED: NITROGLYCERIN OINT 1 INCH/GM PACKET TOPICAL STA (14:40)
--- NOTE | 2022-11-15 14:43 | ED ---
General Adult HPI - General Chief complaint: Chest Pain Stated complaint: chest pain Time Seen by Provider: 11/15/22 14:29 Source: patient, RN notes reviewed Mode of arrival: ambulatory Limitations: no limitations - History of Present Illness Initial comments: Patient is a pleasant 77-year-old male presenting to the emergency department with concerns for chest discomfort. Patient has had around 5 episodes today. Episodes lasting 3-5 minutes. Discomfort feels like mild tightness with associated palpitations. Patient also feels a little bit lightheaded. Patient did go to cardiology recently secondary to lightheadedness and had stress test done yesterday however results are still pending. Currently patient is symptom- free. Patient had a questionable syncopal episode earlier. He was reported by another person as having a staring episode. Patient does not recall that or the conversation that was had. - Related Data Home Medications Medication Instructions Recorded Confirmed Aspirin EC [Ecotrin Low Dose] 81 mg PO DAILY 07/19/21 11/15/22 Citalopram Hydrobromide [CeleXA] 20 mg PO DAILY 07/19/21 11/15/22 Meloxicam [Mobic] 15 mg PO DAILY 07/19/21 11/15/22 Multivitamins, Thera [Multivitamin 1 tab PO DAILY 07/19/21 11/15/22 (formulary)] SUMAtriptan succinate [Imitrex] 100 mg PO BID PRN 07/19/21 11/15/22 Simvastatin [Zocor] 40 mg PO HS 07/19/21 11/15/22 buPROPion [Wellbutrin] 75 mg PO TID 07/19/21 11/15/22 Acetaminophen Tab [Tylenol Tab] 500 - 1,000 mg PO Q8H PRN 11/15/22 11/15/22 Cholecalciferol [Vitamin D3 (25 100 mcg PO DAILY 11/15/22 11/15/22 Mcg = 1000 Iu)] lisinopriL [Zestril] 10 mg PO DAILY 11/15/22 11/15/22 Allergies Allergy/AdvReac Type Severity Reaction Status Date / Time No Known Allergies Allergy Verified 11/15/22 16:30 Review of Systems ROS Statement: Those systems with pertinent positive or pertinent negative responses have been documented in the HPI. ROS Other: All systems not noted in ROS Statement are negative. Constitutional: Denies: fever Eyes: Denies: eye pain ENT: Denies: ear pain Respiratory: Denies: cough Cardiovascular: Reports: as per HPI, chest pain, palpitations Endocrine: Denies: fatigue Gastrointestinal: Denies: abdominal pain Genitourinary: Denies: urgency Musculoskeletal: Denies: back pain Skin: Denies: rash Neurological: Denies: weakness Past Medical History Past Medical History: Osteoarthritis (OA), Sleep Apnea/CPAP/BIPAP Additional Past Medical History / Comment(s): migraines, History of Any Multi-Drug Resistant Organisms: None Reported Past Surgical History: Joint Replacement, Tonsillectomy Additional Past Surgical History / Comment(s): SINUS SURGERY, colonoscopy, rt hip replacement Past Anesthesia/Blood Transfusion Reactions: No Reported Reaction, Unable to Obtain Additional Past Anesthesia/Blood Transfusion Reaction / Comment(s): UNKNOWN F AMILY HX, ADOPTED. Past Psychological History: Depression Smoking Status: Never smoker Past Alcohol Use History: Rare Past Drug Use History: None Reported - Past Family History Father Family Medical History: Unable to Obtain Mother Family Medical History: Unable to Obtain General Exam Limitations: no limitations General appearance: alert, in no apparent distress Head exam: Present: normocephalic Eye exam: Present: normal appearance, PERRL ENT exam: Present: normal oropharynx Neck exam: Present: normal inspection Respiratory exam: Present: normal lung sounds bilaterally Cardiovascular Exam: Present: regular rate, normal rhythm Expanded Peripheral pulses: 2+: Radial (R), Radial (L) GI/Abdominal exam: Present: soft. Absent: tenderness Extremities exam: Present: normal inspection. Absent: pedal edema, calf te nderness Neurological exam: Present: alert, oriented X3, CN II-XII intact. Absent: motor sensory deficit Psychiatric exam: Present: normal affect, normal mood Skin exam: Present: normal color Course Vital Signs 11/15/22 14:23 Temperature 98.2 F Pulse Rate 67 Respiratory 20 Rate Blood Pressure 154/79 O2 Sat by Pulse 99 Oximetry EKG Findings - EKG Results: EKG: interpreted by ERMD (Left axis. Right bundle branch block. For screening AV block [place] 212. No acute ST change.), sinus rhythm Medical Decision Making - Medical Decision Making Was pt. sent in by a medical professional or institution (, PA, INCIDENT RESPONSE SPECIALIST, urgent ca re, hospital, or [place] health [place] facility...) When possible be specific @ -No Did you speak to anyone other than the patient for history (EMS, parent, family, police, friend...)? What history was obtained from this source @ -No Did you review nursing and triage notes (agree or disagree)? Why? @ -I reviewed and agree with nursing and triage notes Were old charts reviewed (outside hosp., previous admission, EMS record, old EKG, old radiological studies, urgent care reports/EKG's, [place] health care facility records)? Report findings @ -No old charts were reviewed Differential Diagnosis (chest pain, altered mental status, abdominal pain women, abdominal pain men, vaginal bleeding, weakness, fever, dyspnea, syncope, headache, dizziness, GI bleed, back pain, seizure, CVA, palpatations, mental health)? @ -Differential Chest Pain: Stable Angina, Unstable Angina, STEMI, NSTEMI Aortic Dissection, Pneumothorax, Musculoskeletal, Esophageal Spasm GERD, Cholecystitis, Pancreatitis, Zoster, this is not meant to be an all-inclusive list. EKG interpreted by me (3pts min.). @ -As above X-rays interpreted by me (1pt min.). @ -Chest x-ray shows no acute process CT interpreted by me (1pt min.). @ -None done U/S interpreted by me (1pt. min.). @ -None done What testing was considered but not performed or refused? (CT, X-rays, U/S, labs)? Why? @ -None What meds were considered but not given or refused? Why? @ -None Did you discuss the management of the patient with other professionals (professionals i.e. , PA, INCIDENT RESPONSE SPECIALIST, lab, RT, psych nurse, professor of social work, counseling aide, teacher, youth officer, director of casework services)? Give summary @ -Case was discussed with Dr. Wild, who will admit covering this vA patient Was smoking cessation discussed for >3mins.? @ -No Was critical care preformed (if so, how long)? @ -No Were there social determinants of health that impacted care today? How? (Homelessness, low income, unemployed, alcoholism, drug addiction, transportation, low edu. Level, literacy, decrease access to med. care, halfway, rehab)? @ -No Was there de-escalation of care discussed even if they declined (Discuss DNR or withdrawal of care, Hospice)? DNR status @ -No What co-morbidities impacted this encounter? (DM, HTN, Smoking, COPD, CAD, Cancer, CVA, ARF, Chemo, Hep., AIDS, mental health diagnosis, sleep apnea, morbid obesity)? @ -None Was patient admitted / discharged? Hospital course, mention meds given and route, prescriptions, significant lab abnormalities, going to OR and other pertinent info. @ -Patient reevaluated and resting comfortably in bed. Patient will be admitted for observation and cardiac evaluation. Cardiology should review recent stress test and also evaluate for possible syncopal episode. Undiagnosed new problem with uncertain prognosis? @ -No Drug Therapy requiring intensive monitoring for toxicity (Heparin, Nitro, Insulin, Cardizem)? @ -No Were any procedures done? @ -No Diagnosis/symptom? @ -Chest pain, syncope Acute, or Chronic, or Acute on Chronic? @ -Acute, acute Uncomplicated (without systemic symptoms) or Complicated (systemic symptoms)? @ -default Side effects of treatment? @ -No Exacerbation, Progression, or Severe Exacerbation? @ -No Poses a threat to life or bodily function? How? (Chest pain, USA, NM, pneumonia, PE, COPD, DKA, ARF, appy, cholecystitis, CVA, Diverticulitis, Homicidal, Suicidal, threat to staff... and all critical care pts) @ -No - Lab Data Result diagrams: 11/15/22 14:49 11/15/22 14:49 Lab Results 11/15/22 11/15/22 11/15/22 Range/Units 14:49 14:49 14:49 WBC 8.2 (3.8-10.6) k/uL RBC 4.51 (4.30-5.90) m/uL Hgb 13.7 (13.0-17.5) gm/dL Hct 39.7 (39.0-53.0) % MCV 87.9 (80.0-100.0) fL MCH 30.3 (25.0-35.0) pg MCHC 34.5 (31.0-37.0) g/dL RDW 13.4 (11.5-15.5) % Plt Count 179 (150-450) k/uL MPV 8.0 Neutrophils % 68 % Lymphocytes % 20 % Monocytes % 6 % Eosinophils % 3 % Basophils % 1 % Neutrophils # 5.6 (1.3-7.7) k/uL Lymphocytes # 1.7 (1.0-4.8) k/uL Monocytes # 0.5 (0-1.0) k/uL Eosinophils # 0.2 (0-0.7) k/uL Basophils # 0.1 (0-0.2) k/uL PT 10.1 (9.0-12.0) sec INR 0.9 (<1.2) APTT 22.7 (22.0-30.0) sec Sodium 135 L (137-145) mmol/L Potassium 4.5 (3.5-5.1) mmol/L Chloride 101 (98-107) mmol/L Carbon Dioxide 25 (22-30) mmol/L Anion Gap 9 mmol/L BUN 27 H (9-20) mg/dL Creatinine 0.86 (0.66-1.25) mg/dL Est GFR (CKD-EPI)AfAm >90 (>60 ml/min/1.73 sqM) Est GFR (CKD-EPI)NonAf 85 (>60 ml/min/1.73 sqM) Glucose 92 (74-99) mg/dL Calcium 9.1 (8.4-10.2) mg/dL Magnesium 2.0 (1.6-2.3) mg/dL Total Bilirubin 0.5 (0.2-1.3) mg/dL AST 25 (17-59) U/L ALT 24 (4-49) U/L Alkaline Phosphatase 56 (38-126) U/L Troponin I (0.000-0.034) ng/mL Total Protein 6.7 (6.3-8.2) g/dL Albumin 4.4 (3.5-5.0) g/dL 11/15/22 Range/Units 14:49 WBC (3.8-10.6) k/uL RBC (4.30-5.90) m/uL Hgb (13.0-17.5) gm/dL Hct (39.0-53.0) % MCV (80.0-100.0) fL MCH (25.0-35.0) pg MCHC (31.0-37.0) g/dL RDW (11.5-15.5) % Plt Count (150-450) k/uL MPV Neutrophils % % Lymphocytes % % Monocytes % % Eosinophils % % Basophils % % Neutrophils # (1.3-7.7) k/uL Lymphocytes # (1.0-4.8) k/uL Monocytes # (0-1.0) k/uL Eosinophils # (0-0.7) k/uL Basophils # (0-0.2) k/uL PT (9.0-12.0) sec INR (<1.2) APTT (22.0-30.0) sec Sodium (137-145) mmol/L Potassium (3.5-5.1) mmol/L Chloride (98-107) mmol/L Carbon Dioxide (22-30) mmol/L Anion Gap mmol/L BUN (9-20) mg/dL Creatinine (0.66-1.25) mg/dL Est GFR (CKD-EPI)AfAm (>60 ml/min/1.73 sqM) Est GFR (CKD-EPI)NonAf (>60 ml/min/1.73 sqM) Glucose (74-99) mg/dL Calcium (8.4-10.2) mg/dL Magnesium (1.6-2.3) mg/dL Total Bilirubin (0.2-1.3) mg/dL AST (17-59) U/L ALT (4-49) U/L Alkaline Phosphatase (38-126) U/L Troponin I <0.012 (0.000-0.034) ng/mL Total Protein (6.3-8.2) g/dL Albumin (3.5-5.0) g/dL Disposition Clinical Impression: Chest pain, Syncope Disposition: ADMITTED IP TO THIS HOSP Is patient prescribed a controlled substance at d/c from ED?: No Referrals: [facility],Clinic [Primary Care Provider] - 1-2 days Time of Disposition: 17:10
--- NOTE | 2022-11-15 15:07 | XR ---
EXAMINATION TYPE: XR chest 2V DATE OF EXAM: 11/15/2022 3:00 PM COMPARISON: Chest radiographs from 07/19/2021 TECHNIQUE: XR chest 2V Frontal and lateral views of the chest. CLINICAL INDICATION:Male, 77 years old with history of Chest Pain; FINDINGS: Lungs/Pleura: Underlying emphysematous change. Bibasilar atelectasis. No focal consolidation or pneum othorax. Pulmonary vascularity: Unremarkable. Heart/mediastinum: Cardiomediastinal silhouette is unremarkable. Musculoskeletal: Multiple level degenerative disc disease changes seen throughout the spine. No acute osseous and amounted. IMPRESSION: Chronic emphysematous change with bibasilar atelectasis. No focal consolidation.
[2022-11-15 15:08] LABS: Basophils # (A) 0.1 k/uL (0-0.2); Basophils % (A) 1 %; Eosinophils # (A) 0.2 k/uL (0-0.7); Eosinophils % (A) 3 %; HCT 39.7 % (39.0-53.0); HGB 13.7 gm/dL (13.0-17.5); Lymphocytes # (A) 1.7 k/uL (1.0-4.8); Lymphocytes % (A) 20 %; MCH 30.3 pg (25.0-35.0); MCHC 34.5 g/dL (31.0-37.0); MCV 87.9 fL (80.0-100.0); Monocytes # (A) 0.5 k/uL (0-1.0); Monocytes % (A) 6 %; Neutrophils # (A) 5.6 k/uL (1.3-7.7); Neutrophils % (A) 68 %; Platelet Count 179 k/uL (150-450); RBC 4.51 m/uL (4.30-5.90); RDW 13.4 % (11.5-15.5); WBC 8.2 k/uL (3.8-10.6)
[2022-11-15 15:21] LABS: INR 0.9 (<1.2); Partial Thromboplastin Time 22.7 sec (22.0-30.0); Prothrombin Time 10.1 sec (9.0-12.0)
[2022-11-15 15:31] LABS: Potassium 4.5 mmol/L (3.5-5.1)
[2022-11-15 15:32] LABS: ALT 24 U/L (4-49); AST 25 U/L (17-59); African American GFR (CKD) >90 (>60 ml/min/1.73 sqM); Albumin 4.4 g/dL (3.5-5.0); Alkaline Phosphatase 56 U/L (38-126); Anion Gap 9 mmol/L; Blood Urea Nitrogen 27 mg/dL (9-20); Calcium 9.1 mg/dL (8.4-10.2); Carbon Dioxide 25 mmol/L (22-30); Chloride 101 mmol/L (98-107); Glucose 92 mg/dL (74-99); Non-African American GFR(CKD) 85 (>60 ml/min/1.73 sqM); Sodium 135 mmol/L (137-145); Total Bilirubin 0.5 mg/dL (0.2-1.3); Total Protein 6.7 g/dL (6.3-8.2)
[2022-11-15] MEDS ORDERED: NITROGLYCERIN SL TABS 0.4 MG TAB SUBLINGUAL PRN (17:11)
[2022-11-15] MEDS: NITROGLYCERIN OINT 1 INCH/GM PACKET TOPICAL SCH ×2 (17:37→22:33)
--- NOTE | 2022-11-15 17:38 | P.HPIM ---
History of Present Illness H&P Date: 11/15/22 Chief Complaint: chest pain Patient is a 77-year-old male with a past medical history of hypertension, hyperlipidemia, depression, migraine who presents to the ED with chest pain. Patient states that he had 5 episodes of left-sided pressure-like chest pain that was not associated with exertion today. He states that it was associated with dizziness. Patient states that he had one episode of similar chest pain also with dizziness about 5 weeks ago. He said he saw cardiology and had a stress test done yesterday. The results of the stress test are pending. Patient states that today at work he had an episode of blank stare which was noticed by his coworker. He denied any postictal confusion or urinary incontinence or tonic-clonic like activity. Patient also did not fall from his chair when this episode happened. In the ED first troponin was negative. EKG did not show any ST changes. Patient was admitted for further evaluation. Review of Systems 10 ROS reviewed and are negative except as noted in HPI Past Medical History Past Medical History: Osteoarthritis (OA), Sleep Apnea/CPAP/BIPAP Additional Past Medical History / Comment(s): migraines, History of Any Multi-Drug Resistant Organisms: None Reported Past Surgical History: Joint Replacement, Tonsillectomy Additional Past Surgical History / Comment(s): SINUS SURGERY, colonoscopy, rt hip replacement Past Anesthesia/Blood Transfusion Reactions: No Reported Reaction, Unable to Obtain Additional Past Anesthesia/Blood Transfusion Reaction / Comment(s): UNKNOWN FAMILY HX, ADOPTED. Past Psychological History: Depression Smoking Status: Never smoker Past Alcohol Use History: Rare Past Drug Use History: None Reported - Past Family History Father Family Medical History: Unable to Obtain Mother Family Medical History: Unable to Obtain Medications and Allergies Home Medications Medication Instructions Recorded Confirmed Type Aspirin EC [Ecotrin Low Dose] 81 mg PO DAILY 07/19/21 11/15/22 History Citalopram Hydrobromide [CeleXA] 20 mg PO DAILY 07/19/21 11/15/22 History Meloxicam [Mobic] 15 mg PO DAILY 07/19/21 11/15/22 History Multivitamins, Thera [Multivitamin 1 tab PO DAILY 07/19/21 11/15/22 History (formulary)] SUMAtriptan succinate [Imitrex] 100 mg PO BID PRN 07/19/21 11/15/22 History Simvastatin [Zocor] 40 mg PO HS 07/19/21 11/15/22 History buPROPion [Wellbutrin] 75 mg PO TID 07/19/21 11/15/22 History Acetaminophen Tab [Tylenol Tab] 500 - 1,000 mg PO Q8H PRN 11/15/22 11/15/22 History Cholecalciferol [Vitamin D3 (25 100 mcg PO DAILY 11/15/22 11/15/22 History Mcg = 1000 Iu)] lisinopriL [Zestril] 10 mg PO DAILY 11/15/22 11/15/22 History Allergies Allergy/AdvReac Type Severity Reaction Status Date / Time No Known Allergies Allergy Verified 11/15/22 16:30 Physical Exam Osteopathic Statement: *. No significant issues noted on an osteopathic structural exam other than those noted in the History and Physical/Consult. Vitals: Vital Signs Temp Pulse Resp BP Pulse Ox 11/15/22 17:20 77 20 117/78 99 11/15/22 14:23 98.2 F 67 20 154/79 99 Intake and Output 11/15/22 11/15/22 11/15/22 06:59 14:59 22:59 Other: Weight 161.025 kg General: [Alert and oriented, well nourished, no acute distress]. Eye: [PERRL, EOMI, normal conjunctiva]. HENT: [Normocephalic, clear tympanic membranes, normal hearing, moist oral mucosa, no scleral icterus, no sinus tenderness]. Neck: [Supple, non-tender, no carotid bruits, no JVD, no lymphadenopathy]. Lungs: [Clear to auscultation and percussion, non-labored respiration]. Heart: [Normal rate, regular rhythm, no murmur, +1 bilateral pitting edema]. Abdomen: [Soft, non-tender, non-distended, normal bowel sounds, no masses, m orbidly obese]. Musculoskeletal: [Normal range of motion and strength, no tenderness or swelling]. Skin: [Skin is warm, dry and pink, no rashes or lesions]. Neurologic: [Awake, alert, and oriented X3, CN II-XII intact]. Psychiatric: [Cooperative, appropriate mood and affect]. Results CBC & Chem 7: 11/15/22 14:49 11/15/22 14:49 Labs: Abnormal Lab Results - Last 24 Hours (Table) 11/15/22 Range/Units 14:49 Sodium 135 L (137-145) mmol/L BUN 27 H (9-20) mg/dL Assessment and Plan Assessment: Patient is a 77-year-old male with a past medical history of hypertension, hyperlipidemia, depression, migraine who presents to the ED with chest pain. Patient admitted to the medicine service for further evaluation of his chest pain. Atypical chest pain Trend troponin 2 Follow-up on stress test results that were done outpatient Patient also states that he may have had a echocardiogram done at his [employer] [facility] office. Will defer to cardiology if he needs another echo. Episode of blank stare We'll check d-dimer as ordered in the ED Check carotid Dopplers Chronic conditions Hypertension Hyperlipidemia Obesity Depression Migraine -Stable. Resume home meds -Encourage weight loss DVT prophylaxis: Subcu heparin CODE STATUS:full code DVT prophylaxis: Subcu heparin Discussed with: Patient, ER, rn Anticipated length of stay < than [address]: home .
--- NOTE | 2022-11-15 18:55 | US ---
EXAMINATION TYPE: US carotid duplex BILAT DATE OF EXAM: 11/15/2022 COMPARISON: NONE CLINICAL HISTORY: dizziness. Dizziness TECHNIQUE: Carotid duplex ultrasound examination. Indirect Doppler criteria was utilized. FINDINGS: EXAM MEASUREMENTS: RIGHT: Peak Systolic Velocity (PSV) cm/sec ----- Right CCA: 65.3 ----- Right ICA: 66.7 ----- Right ECA: 68.2 ICA/CCA ratio: 1.0 RIGHT: End Diastole cm/sec ----- Right CCA: 15.9 ----- Right ICA: 27.5 ----- Right ECA: 5.7 LEFT: Peak Systolic Velocity (PSV) cm/sec ----- Left CCA: 68.2 ----- Left ICA: 81.3 ----- Left ECA: 75.4 ICA/CCA ratio: 1.2 LEFT: End Diastole cm/sec ----- Left CCA: 11.5 ----- Left ICA: 28.9 ----- Left ECA: 11.5 VERTEBRALS (direction of flow): Right Vertebral: Antegrade Left Vertebral: Antegrade Rhythm: Normal FLUID DESIGNER NOTES: No significant stenosis seen IMPRESSION: There is antegrade flow in the vertebral arteries. The images and measurement suggests less than 10% stenosis in both internal carotid arteries. Criteria for Assigning % of Stenosis / Diameter reduction (Estimation based on the indirect measurements of the internal carotid artery velocities (ICA PSV). 1. Normal (no stenosis)=ICA PSV < 125 cm/s: ratio < 2.0: ICA EDV<40 cm/s. 2. Less than 50% stenosis=ICA PSV < 125 cm/s: ratio < 2.0: ICA EDV<40 cm/s. 3. 50 to 69% stenosis=ICA PSV of 125 to 230 cm/s: ration 2.0 ? 4.0: ICA EDV 40-100 cm/s. 4. Greater than 70% stenosis to near occlusion= ICA PSV > 230 cm/s: ratio > 4.0: ICA EDV > 100 cm/s. 5. Near occlusion= ICA PSV velocities may be low or undetectable: variable ratio and ICA EDV. 6. Total occlusion=unable to detect flow.
[2022-11-15] MEDS: buPROPion 75 MG TAB PO SCH (20:35)
[2022-11-15] MEDS: HEPARIN SODIUM,PORCINE/PF 5,000 UNIT/0.5 ML SYRINGE SQ SCH (20:36)
[2022-11-15] MEDS: ATORVASTATIN 20 MG TAB PO SCH (20:36)
[2022-11-15] MEDS ORDERED: SUMAtriptan succinate 50 MG TAB PO PRN (21:37)
--- NOTE | 2022-11-15 22:40 | CT ---
EXAMINATION TYPE: CT angio chest DATE OF EXAM: 11/15/2022 COMPARISON: None HISTORY: R/O PE CT DLP: 1061 mGycm Automated exposure control for dose reduction was used. CONTRAST: Performed with IV Contrast, patient injected with 100cc mL of Isovue 370. There are Three-D postprocessed images. The lungs are clear of infiltrate. No pleural effusion. No pneumothorax. There is no mediastinal rogers opathy. Thoracic aorta is intact. No aneurysm or dissection. No evidence of filling defect in the pul monary arteries. There are no hilar masses. The upper abdominal soft tissues appear intact. There is small hiatal valerio ia. There is some degenerative spurring in the thoracic spine. Sternum is intact. IMPRESSION: No evidence of pulmonary embolism. Small hiatal hernia.
[2022-11-16] MEDS: NITROGLYCERIN OINT 1 INCH/GM PACKET TOPICAL SCH ×4 (04:51→22:56)
[2022-11-16] MEDS: HEPARIN SODIUM,PORCINE/PF 5,000 UNIT/0.5 ML SYRINGE SQ SCH (08:12)
[2022-11-16] MEDS: CHOLECALCIFEROL 25 MCG (1000 IU) TABLET PO SCH (08:13)
[2022-11-16] MEDS: buPROPion 75 MG TAB PO SCH ×3 (08:13→20:07)
[2022-11-16] MEDS: CITALOPRAM HYDROBROMIDE 20 MG TAB PO SCH (08:13)
[2022-11-16] MEDS: ASPIRIN 81 MG PO SCH (08:13)
[2022-11-16] MEDS: MULTIVITAMINS, THERA 1 EACH TAB PO SCH (08:13)
[2022-11-16] MEDS: lisinopriL 10 MG TAB PO SCH (08:13)
[2022-11-16] MEDS ORDERED: ACETAMINOPHEN TAB 325 MG TAB PO PRN (08:46)
[2022-11-16] MEDS ORDERED: ASPIRIN 325 MG TAB PO SCH (09:00)
[2022-11-16 09:52] LABS: Chol/HDL Ratio 3.26 Ratio; LDL Cholesterol,Calculated 99.8 mg/dL (0.0-131.0)
[2022-11-16] MEDS ORDERED: HEPARIN SODIUM 1,000 UN/ML (10ML VL) IV ONE (10:09)
[2022-11-16] MEDS: HEPARIN SOD,PORK IN 0.45% NACL 25,000 UNIT in 0.45% NACL 1 250ML.BAG IV SCH (10:31)
[2022-11-16] MEDS: METOPROLOL TARTRATE 12.5 MG TAB PO SCH ×2 (10:47→20:07)
--- NOTE | 2022-11-16 10:49 | P.CRDCN ---
History of Present Illness Consult date: 11/16/22 Chief complaint: Chest pain History of present illness: The patient is a pleasant 77-year-old gentleman with a past medical history significant for hypertension and dyslipidemia and obesity and sleep apnea presented to the hospital complaining of chest discomfort. He was in his usual state of health until yesterday when he started experiencing discomfort in the chest. He describes intermittent episodes of chest tightness each one lasts for about 5 minutes with no radiation to the arms or neck or shoulders or back. At the last episode he felt his heart was racing up with the chest discomfort. Also he did have an episode of dizziness/lightheadedness with no presyncope or syncope. He decided to come to the emergency department for further evaluation. He underwent an EKG and that EKG initially showed sinus mechanism but subsequently another EKG showed atrial fibrillation which is new to the patient. He underwent 2 sets of cardiac enzymes came in to be unremarkable. He underwent a computed tomography scan of the chest showed no pulmonary embolism. Subsequently the patient was started on heparin and also he was started on AV jenniffer yulissa agents was metoprolol tartrate 12.5 mg by mouth twice a day. He was not on any AV jenniffer yulissa agents as an outpatient. No established history of coronary artery disease and no history of congestive heart failureof cardiac arrhythmia including atrial fibrillation. The patient was seen and examined this morning. His vitals are stable. He is back in sinus mechanism. He does have distant heart sounds with a regular rhythm and diminished breathing sounds bilaterally and no lower extremity edema noted Assessment Intermittent episodes of chest discomfort appeared to be atypical Paroxysmal atrial fibrillation, this is a new diagnosis the patient. The patient currently in sinus rhythm Obstructive sleep apnea and hypertension and dyslipidemia and obesity Plan Acute coronary event was ruled out Pulmonary embolism was ruled out Continue the current medical regimen including heparin Agree about starting the patient on oral anticoagulation Obtain an echo for further risk stratification and assess ejection fraction Advised to monitor the patient for additional 24 hours Follow-up with the patient Past Medical History Past Medical History: Osteoarthritis (OA), Sleep Apnea/CPAP/BIPAP Additional Past Medical History / Comment(s): migraines, History of Any Multi-Drug Resistant Organisms: None Reported Past Surgical History: Joint Replacement, Tonsillectomy Additional Past Surgical History / Comment(s): SINUS SURGERY, colonoscopy, rt hip replacement Past Anesthesia/Blood Transfusion Reactions: No Reported Reaction, Unable to Obtain Additional Past Anesthesia/Blood Transfusion Reaction / Comment(s): UNKNOWN FAMILY HX, ADOPTED. Past Psychological History: Depression Smoking Status: Never smoker Past Alcohol Use History: Rare Additional Past Alcohol Use History / Comment(s): SMOKED 6-7 YEARS, 1 PPD EST, QUIT 1977 Past Drug Use History: None Reported - Past Family History Father Family Medical History: Unable to Obtain Mother Family Medical History: Unable to Obtain Medications and Allergies Home Medications Medication Instructions Recorded Confirmed Type Aspirin EC [Ecotrin Low Dose] 81 mg PO DAILY 07/19/21 11/15/22 History Citalopram Hydrobromide [CeleXA] 20 mg PO DAILY 07/19/21 11/15/22 History Meloxicam [Mobic] 15 mg PO DAILY 07/19/21 11/15/22 History Multivitamins, Thera [Multivitamin 1 tab PO DAILY 07/19/21 11/15/22 History (formulary)] SUMAtriptan succinate [Imitrex] 100 mg PO BID PRN 07/19/21 11/15/22 History Simvastatin [Zocor] 40 mg PO HS 07/19/21 11/15/22 History buPROPion [Wellbutrin] 75 mg PO TID 07/19/21 11/15/22 History Acetaminophen Tab [Tylenol Tab] 500 - 1,000 mg PO Q8H PRN 11/15/22 11/15/22 History Cholecalciferol [Vitamin D3 (25 100 mcg PO DAILY 11/15/22 11/15/22 History Mcg = 1000 Iu)] lisinopriL [Zestril] 10 mg PO DAILY 11/15/22 11/15/22 History Allergies Allergy/AdvReac Type Severity Reaction Status Date / Time No Known Allergies Allergy Verified 11/15/22 16:30 Physical Exam Vitals: Vital Signs Temp Pulse Pulse Pulse Pulse Pulse Resp 11/16/22 08:00 72 66 69 85 18 11/16/22 07:44 11/16/22 07:00 98.1 F 66 69 85 11/16/22 02:00 98.0 F 72 18 11/15/22 20:54 98.3 F 69 18 11/15/22 20:00 98.3 F 69 18 11/15/22 17:20 77 20 11/15/22 14:23 98.2 F 67 20 BP BP BP BP BP Pulse Ox 03/25/23 08:00 11/16/22 07:44 97 11/16/22 07:00 115/72 115/70 110/74 97 11/16/22 02:00 107/56 97 11/15/22 20:54 101/63 93 L 11/15/22 20:00 101/63 94 L 11/15/22 17:20 117/78 99 11/15/22 14:23 154/79 99 Intake and Output 11/15/22 11/16/22 11/16/22 22:59 06:59 14:59 Intake Total 118 Balance 118 Intake: Oral 118 Other: Voiding Method Toilet # Voids 1 1 Weight 161.025 kg Results 11/15/22 14:49 11/15/22 14:49 Cardiac Enzymes 11/15/22 11/15/22 11/15/22 Range/Units 14:49 14:49 21:25 AST 25 (17-59) U/L Troponin I <0.012 <0.012 (0.000-0.034) ng/mL Coagulation 11/15/22 Range/Units 14:49 PT 10.1 (9.0-12.0) sec APTT 22.7 (22.0-30.0) sec Lipids 11/16/22 Range/Units 05:58 Triglycerides 128.00 (0.00-149.00) mg/dL Cholesterol 181.00 (0.00-200.00) mg/dL HDL Cholesterol 55.60 (40.00-60.00) mg/dL Cholesterol/HDL Ratio 3.26 Ratio CBC 11/15/22 Range/Units 14:49 WBC 8.2 (3.8-10.6) k/uL RBC 4.51 (4.30-5.90) m/uL Hgb 13.7 (13.0-17.5) gm/dL Hct 39.7 (39.0-53.0) % Plt Count 179 (150-450) k/uL Comprehensive Metabolic Panel 11/15/22 Range/Units 14:49 Sodium 135 L (137-145) mmol/L Potassium 4.5 (3.5-5.1) mmol/L Chloride 101 (98-107) mmol/L Carbon Dioxide 25 (22-30) mmol/L BUN 27 H (9-20) mg/dL Creatinine 0.86 (0.66-1.25) mg/dL Glucose 92 (74-99) mg/dL Calcium 9.1 (8.4-10.2) mg/dL AST 25 (17-59) U/L ALT 24 (4-49) U/L Alkaline Phosphatase 56 (38-126) U/L Total Protein 6.7 (6.3-8.2) g/dL Albumin 4.4 (3.5-5.0) g/dL Current Medications Generic Name Dose Route Start Last Admin Trade Name Freq PRN Reason Stop Dose Admin Acetaminophen 650 mg 11/16/22 08:46 11/16/22 09:06 Acetaminophen Tab 325 Mg Tab PO 650 mg Q4HR PRN Administration Fever and/ or Pain Aspirin 81 mg 11/16/22 09:00 11/16/22 08:13 Aspirin 81 Mg PO 81 mg DAILY GRAYSON Administration Atorvastatin Calcium 20 mg 11/15/22 21:00 11/15/22 20:36 Atorvastatin 20 Mg Tab PO 20 mg HS GRAYSON Administration Bupropion HCl 75 mg 11/15/22 22:00 11/16/22 08:13 Bupropion 75 Mg Tab PO 75 mg TID GRAYSON Administration Cholecalciferol 100 mcg 11/16/22 09:00 11/16/22 08:13 Cholecalciferol 25 Mcg (1000 Iu) Tablet PO 100 mcg DAILY GRAYSON Administration Citalopram Hydrobromide 20 mg 11/16/22 09:00 11/16/22 08:13 Citalopram Hydrobromide 20 Mg Tab PO 20 mg DAILY GRAYSON Administration Heparin Sodium (Porcine) 0 unit 11/16/22 10:09 Heparin Sodium 1,000 Un/Ml (10ml Vl) IV PER PROTOCOL PRN Low PTT Protocol Heparin Sodium/Sodium Chloride 250 mls @ 10 mls/hr 11/16/22 10:15 11/16/22 10:31 25,000 unit/ Sodium Chloride IV 6.21 units/kg/hr .Q24H GRAYSON 10 mls/hr Administration Protocol 6.21 UNITS/KG/HR Lisinopril 10 mg 11/16/22 09:00 11/16/22 08:13 Lisinopril 10 Mg Tab PO 10 mg DAILY GRAYSON Administration Metoprolol Tartrate 12.5 mg 11/16/22 10:15 Metoprolol Tartrate 12.5 Mg Tab PO BID GRAYSON Multivitamins 1 each 11/16/22 09:00 11/16/22 08:13 Multivitamins, Thera 1 Each Tab PO 1 each DAILY GRAYSON Administration Nitroglycerin 0.4 mg 11/15/22 17:11 Nitroglycerin Sl Tabs 0.4 Mg Tab SUBLINGUAL Q5M PRN Chest Pain Nitroglycerin 1 inch 11/15/22 18:00 11/16/22 04:51 Nitroglycerin Oint 1 Inch/Gm Packet TOPICAL Not Given Q6HR GRAYSON Intake and Output 11/15/22 11/16/22 11/16/22 22:59 06:59 14:59 Intake Total 118 Balance 118 Intake: Oral 118 Other: Voiding Method Toilet # Voids 1 1 Weight 161.025 kg 11/15/22 14:49 11/15/22 14:49
[2022-11-16 11:23] LABS: Basophils % (A) 1 %; Eosinophils # (A) 0.3 k/uL (0-0.7); Eosinophils % (A) 4 %; HCT 41.9 % (39.0-53.0); HGB 14.2 gm/dL (13.0-17.5); Lymphocytes # (A) 1.6 k/uL (1.0-4.8); Lymphocytes % (A) 23 %; MCH 30.1 pg (25.0-35.0); MCV 88.5 fL (80.0-100.0); Mean Platelet Volume 7.9; Monocytes # (A) 0.5 k/uL (0-1.0); Monocytes % (A) 7 %; Neutrophils # (A) 4.4 k/uL (1.3-7.7); Neutrophils % (A) 64 %; Platelet Count 195 k/uL (150-450); RBC 4.73 m/uL (4.30-5.90); RDW 13.4 % (11.5-15.5)
[2022-11-16 11:31] LABS: Partial Thromboplastin Time 45.4 sec (22.0-30.0); Prothrombin Time 10.4 sec (9.0-12.0)
--- NOTE | 2022-11-16 11:48 | P.PN ---
Subjective Progress Note Date: 11/16/22 No new complaints today. Patient reports resolution of his chest pain. Patient did have an episode of atrial fibrillation this morning, but without RVR. Gen: awake, alert HEENT: normocephalic, atraumatic, good hearing acuity, moist mucous membranes Resp: good air exchange, breathing comfortably with no accessory muscle use CVS: good distal perfusion x 4, GI: soft, NTTP, ND : no SPT, no CVAT, roldan catheter not present MSK: no pitting edema, no clubbing Neuro: non-focal, moving all extremities Psych: cooperative, euthymic mood Hospital course: 77-year-old man with a medical history of hypertension, hyperlipidemia, depression, migraine who presented to the emergency room with chest pain. Patient was afebrile, 154/79, heart rate 67, 90% on room air. CBC is unremar kable. Chemistries are unremarkable. Initial troponin is less than 0.012 than trended to less than 0.012 after repeat check. The eyes were unremarkable. D- dimer was elevated to 1.27. Chest x-ray showed chronic emphysematous changes with no acute findings. EKG showed normal sinus rhythm with right bundle junior block, left anterior fascicular block with left axis deviation, first-degree AV block. Carotid Doppler was completed and showed temperature sense stenosis in both internal carotid arteries. CT of the chest ruled out pulmonary embolism. Patient was admitted to observation and cardiology was consulted for further management. Patient was noted to go into atrial fibrillation the morning after admission on telemetry, and EKG confirmed this. This EKG demonstrated atrial fibrillation without rapid ventricular response, no evidence of active ischemia. Patient was subsequently was started on a heparin drip as well as metoprolol. Cardiology recommended doing an echocardiogram to look for structural heart disease. Assessment: Chest pain Atrial fibrillation, paroxysmal Hypertension Hyperlipidemia Depression Migraine Plan: Vital signs reviewed, patient is afebrile, 107/56, heart rate 72, 97% on room air. CBC is unremarkable. PTT is elevated 45.4 Lipid panel shows triglycerides of 128, total cholesterol 181, LDL 99.8, HDL 55.6 Ordered CBC, basic metabolic panel, magnesium for tomorrow Cardiology note reviewed, they agree with current plan of management with blood thinner for atrial fibrillation, echocardiogram I started patient on a heparin drip today, follow PTT for toxicity I started patient on metoprolol 12.5 mg twice a day Echo is pending Continue aspirin 81 mg daily, atorvastatin 20 mg daily at bedtime Patient is full code DVT prophylaxis covered with heparin drip Objective - Vital Signs Vital signs: Vital Signs Temp 98.1 F 11/16/22 07:00 Pulse 72 11/16/22 08:00 Resp 18 11/16/22 08:00 BP 110/74 11/16/22 07:00 Pulse Ox 97 11/16/22 07:44 FiO2 Intake & Output 11/15/22 11/16/22 11/16/22 18:59 06:59 18:59 Intake Total 118 Balance 118 Weight 161.025 kg Intake: Oral 118 Other: Voiding Method Toilet # Voids 1 - Labs CBC & Chem 7: 11/16/22 11:03 11/15/22 14:49 Labs: Abnormal Lab Results - Last 24 Hours (Table) 11/15/22 11/15/22 11/16/22 Range/Units 14:49 17:33 11:03 APTT 45.4 H (22.0-30.0) sec D-Dimer 1.27 H (<0.60) mg/L FEU Sodium 135 L (137-145) mmol/L BUN 27 H (9-20) mg/dL
--- NOTE | 2022-11-16 13:09 | CA ---
Transthoracic Echo Report Name: Michael Sparks Age: 77 Gender: M : 1945 Exam Date: 11/16/2022 11:44 Exam Location: [place] [facility] Ht (in): 75 Wt (lb): 355 Ordering Physician: Bruce Valencia MD ([id number]) Attending/Referring Phys: Instrument Maintenance Supervisor Laurence Cornell RDCS Procedure CPT: Indications: CP Cardiac Hx: Technical Quality: Technically difficult study Contrast 1: Total Dose (mL): Contrast 2: Total Dose (mL): MEASUREMENTS (Male / Female) Normal Values 2D ECHO LV Diastolic Diameter PLAX 5.0 cm 4.2 - 5.9 / 3.9 - 5.3 cm LV Systolic Diameter PLAX 4.1 cm IVS Diastolic Thickness 1.5 cm 0.6 - 1.0 / 0.6 - 0.9 cm LVPW Diastolic Thickness 1.6 cm 0.6 - 1.0 / 0.6 - 0.9 cm LV Relative Wall Thickness 0.6 RV Internal Dim ED PLAX 3.5 cm LA Systolic Diameter LX 4.3 cm 3.0 - 4.0 / 2.7 - 3.8 cm LV Diastolic Volume MOD BP 116.4 cm??? 67 - 155 / 56 - 104 cm??? LV Systolic Volume MOD BP 64.2 cm??? 22 - 58 / 19 - 49 cm??? LV Ejection Fraction MOD BP 44.8 % >= 55 % LV Diastolic Volume MOD 4C 118.9 cm??? LV Systolic Volume MOD 4C 66.5 cm??? LV Ejection Fraction MOD 4C 44.1 % LV Diastolic Length 4C 8.6 cm LV Systolic Length 4C 7.5 cm LV Diastolic Volume MOD 2C 108.2 cm??? LV Systolic Volume MOD 2C 65.6 cm??? LV Ejection Fraction MOD 2C 39.3 % LV Diastolic Length 2C 8.0 cm LV Systolic Length 2C 7.5 cm LA Volume 102.6 cm??? 18 - 58 / 22 - 52 cm??? M-MODE LV Diastolic Diameter MM 5.3 cm 4.2 - 5.9 / 3.9 - 5.3 cm LV Systolic Diameter MM 3.4 cm IVS Diastolic Thickness MM 1.4 cm 0.6 - 1.0 / 0.6 - 0.9 cm LVPW Diastolic Thickness MM 1.4 cm 0.6 - 1.0 / 0.6 - 0.9 cm LV Relative Wall Thickness MM 0.5 0.24 - 0.42 / 0.22 - 0.42 LV Mass Index MM 112.7 g/m??? 49 - 115 / 43 - 95 g/m??? Aortic Root Diameter MM 3.8 cm MV E Point Septal Separation 0.4 cm AV Cusp Separation MM 2.3 cm DOPPLER AV Peak Velocity 146.4 cm/s AV Peak Gradient 8.6 mmHg AI Peak Velocity 214.9 cm/s AI Peak Gradient 18.5 mmHg AI Pressure Half Time 1470.6 ms MV Area PHT 3.6 cm??? MV Deceleration Time 240.4 ms TR Peak Velocity 189.8 cm/s TR Peak Gradient 14.4 mmHg Right Ventricular Systolic Press 19.4 mmHg FINDINGS Left Ventricle Left ventricular ejection fraction is estimated at 35-40 %. Left ventricular cavity size normal. Moderate concentric left ventricular hypertrophy. Severely increased left ventricular mass. Mildly decreased midwall fractional shortening. Mildly increased left ventricular systolic volume.Moderately decreased left ventricular ejection fraction. Right Ventricle Mild right ventricular dilatation. Right ventricular systolic pressure within normal limits. Right Atrium Normal right atrial size. Left Atrium Mildly increased left atrial diameter. Severely increased left atrial volume. Moderately increased left atrial area. Mitral Valve Structurally normal mitral valve. Trace to mild to moderate mitral regurgitation. Aortic Valve Trileaflet aortic valve. Focal thickening of the aortic valve cusps. Mild aortic regurgitation. Tricuspid Valve Structurally normal tricuspid valve. Mild tricuspid regurgitation. Pulmonic Valve Structurally normal pulmonic valve. Trace to mild pulmonic regurgitation. Pericardium Normal pericardium. No pericardial effusion. Aorta Mild aortic dilatation at the level of the sinuses of valsalva 38 mm CONCLUSIONS Impaired all the function was EF around 40% [id number] mitral regurgitation Previewed by: Dr. Bruce Valencia MD (Electronically Signed) Final Date: 16 November 2022 13:08
[2022-11-16] MEDS: HEPARIN SODIUM 1,000 UN/ML (10ML VL) IV PRN (19:22)
[2022-11-16 19:39] VITALS: RESP 16
[2022-11-16] MEDS: ATORVASTATIN 20 MG TAB PO SCH (20:08)
[2022-11-17 01:57] LABS: Basophils % (A) 1 %; Eosinophils # (A) 0.3 k/uL (0-0.7); Eosinophils % (A) 3 %; HCT 41.8 % (39.0-53.0); HGB 13.7 gm/dL (13.0-17.5); Lymphocytes # (A) 2.2 k/uL (1.0-4.8); Lymphocytes % (A) 29 %; MCH 29.4 pg (25.0-35.0); MCHC 32.7 g/dL (31.0-37.0); MCV 89.9 fL (80.0-100.0); Mean Platelet Volume 7.6; Monocytes # (A) 0.5 k/uL (0-1.0); Monocytes % (A) 6 %; Neutrophils # (A) 4.6 k/uL (1.3-7.7); Neutrophils % (A) 60 %; Platelet Count 183 k/uL (150-450); RBC 4.64 m/uL (4.30-5.90); RDW 13.3 % (11.5-15.5); WBC 7.8 k/uL (3.8-10.6)
[2022-11-17 02:45] LABS: Partial Thromboplastin Time 40.2 sec (22.0-30.0); Prothrombin Time 10.4 sec (9.0-12.0)
[2022-11-17] MEDS: HEPARIN SOD,PORK IN 0.45% NACL 25,000 UNIT in 0.45% NACL 1 250ML.BAG IV SCH (03:15)
[2022-11-17] MEDS: HEPARIN SODIUM 1,000 UN/ML (10ML VL) IV PRN (03:16)
[2022-11-17] MEDS: NITROGLYCERIN OINT 1 INCH/GM PACKET TOPICAL SCH (05:49)
[2022-11-17] MEDS: CHOLECALCIFEROL 25 MCG (1000 IU) TABLET PO SCH (08:33)
[2022-11-17] MEDS: METOPROLOL TARTRATE 12.5 MG TAB PO SCH (08:33)
[2022-11-17] MEDS: CITALOPRAM HYDROBROMIDE 20 MG TAB PO SCH (08:33)
[2022-11-17] MEDS: buPROPion 75 MG TAB PO SCH (08:33)
[2022-11-17] MEDS: ASPIRIN 81 MG PO SCH (08:33)
[2022-11-17] MEDS: lisinopriL 10 MG TAB PO SCH (08:33)
[2022-11-17] MEDS: MULTIVITAMINS, THERA 1 EACH TAB PO SCH (08:34)
[2022-11-17 09:06] VITALS: BP 124/77; PULSE 58; TEMP 98.3
[2022-11-17] MEDS ORDERED: APIXABAN 5 MG TAB PO SCH (10:00)
--- NOTE | 2022-11-17 11:07 | P.PN ---
Subjective Progress Note Date: 11/17/22 Principal diagnosis: Paroxysmal atrial fibrillation The patient is a pleasant 77-year-old gentleman with a past medical history significant for hypertension and dyslipidemia and obesity and sleep apnea presented to the hospital complaining of chest discomfort. He was in his usual state of health until yesterday when he started experiencing discomfort in the chest. He describes intermittent episodes of chest tightness each one lasts for about 5 minutes with no radiation to the arms or neck or shoulders or back. At the last episode he felt his heart was racing up with the chest discomfort. Also he did have an episode of dizziness/lightheadedness with no presyncope or s yncope. He decided to come to the emergency department for further evaluation. He underwent an EKG and that EKG initially showed sinus mechanism but subsequently another EKG showed atrial fibrillation which is new to the patient. He underwent 2 sets of cardiac enzymes came in to be unremarkable. He underwent a computed tomography scan of the chest showed no pulmonary embolism. Subsequently the patient was started on heparin and also he was started on AV jenniffer yulissa agents was metoprolol tartrate 12.5 mg by mouth twice a day. He was not on any AV jenniffer yulissa agents as an outpatient. No established history of coronary artery disease and no history of congestive heart failureof cardiac arrhythmia including atrial fibrillation. The patient was seen and examined this morning. His vitals are stable. He is back in sinus mechanism. He does have distant heart sounds with a regular rhythm and diminished breathing sounds bilaterally and no lower extremity edema noted November [id number] The patient was seen and evaluated this morning. He is feeling better. He is chest pain-free. No shortness of breath. No dizziness or lightheadedness. He is converted to normal sinus mechanism. He was started on oral anticoagulation by the internal medicine service. He underwent an echo which revealed impaired LV function with an EF 40% with no significant valvular abnormalities. From the cardiovascular standpoint of view, the patient can be discharged Assessment Intermittent episodes of chest discomfort appeared to be atypical Paroxysmal atrial fibrillation, this is a new diagnosis the patient. The patient currently in sinus rhythm Obstructive sleep apnea and hypertension and dyslipidemia and obesity Plan Acute coronary event was ruled out Pulmonary embolism was ruled out Continue the current medical regimen including heparin Agree about starting the patient on oral anticoagulation The patient can be discharged home Objective - Vital Signs Vital signs: Vital Signs Temp 98.3 F 11/17/22 07:00 Pulse 58 L 11/17/22 08:00 Resp 16 11/17/22 08:00 BP 124/77 11/17/22 07:00 Pulse Ox 97 11/17/22 07:00 FiO2 Intake & Output 11/16/22 11/17/22 11/17/22 18:59 06:59 18:59 Intake Total 709 205.571 118 Balance 709 205.571 118 Intake: Intake, IV Titration 205.571 Amount Heparin Sod,Pork in 0.45% 205.571 NaCl 25,000 unit In 0.45 % NaCl 1 250ml.bag @ 6.21 UNITS/KG/HR 10 mls/hr IV .Q24H [facility] Rx#:[id number] Oral 709 118 Other: Voiding Method Toilet Toilet Toilet # Voids 3 2 - Labs CBC & Chem 7: 11/17/22 01:35 11/15/22 14:49 Labs: Abnormal Lab Results - Last 24 Hours (Table) 11/16/22 11/17/22 11/17/22 Range/Units 11:03 01:35 10:22 APTT 45.4 H 40.2 H 48.4 H (22.0-30.0) sec
--- NOTE | 2022-11-17 11:53 | P.DS ---
Providers Date of admission: 11/15/22 17:11 Expected date of discharge: 11/17/22 Attending physician: Toy Wild MD Consults: 11/15/22 17:11 Consult Physician Urgent Consulting Provider: Bruce Valencia Consult Reason/Comments: cp, ? syncope Do you want consulting provider notified?: Yes Primary care physician: [facility] Hospital Course: Assessment: Chest pain, atypical Atrial fibrillation, paroxysmal Hypertension Hyperlipidemia Depression Migraine Hospital course: 77-year-old man with a medical history of hypertension, hyperlipidemia, depression, migraine who presented to the emergency room with chest pain. Patient was afebrile, 154/79, heart rate 67, 90% on room air. CBC is unremarkable. Chemistries are unremarkable. Initial troponin is less than 0.012 than trended to less than 0.012 after repeat check. The eyes were unremarkable. D-dimer was elevated to 1.27. Chest x-ray showed chronic emph ysematous changes with no acute findings. EKG showed normal sinus rhythm with right bundle junior block, left anterior fascicular block with left axis deviation, first-degree AV block. Carotid Doppler was completed and showed temperature sense stenosis in both internal carotid arteries. CT of the chest ruled out pulmonary embolism. Patient was admitted to observation and cardiology was consulted for further management. Patient was noted to go into atrial fibrillation the morning after admission on telemetry, and EKG confirmed this. This EKG demonstrated atrial fibrillation without rapid ventricular response, no evidence of active ischemia. Patient was subsequently was started on a heparin drip as well as metoprolol for atrial fibrillation. Cardiology recommended doing an echocardiogram to look for structural heart disease. Echocardiogram showed reduced ejection fraction to 45%. The recommended outpatient follow-up with cardiology. Patient was discharged with new medications for Apixiban, metoprolol. I spent 38 minutes coordinating this discharge Gen: awake, alert HEENT: normocephalic, atraumatic, good hearing acuity, moist mucous membranes Resp: good air exchange, breathing comfortably with no accessory muscle use CVS: good distal perfusion x 4, GI: soft, NTTP, ND : no SPT, no CVAT, roldan catheter not present MSK: no pitting edema, no clubbing Neuro: non-focal, moving all extremities Psych: cooperative, euthymic mood Patient Condition at Discharge: Good Plan - Discharge Summary Discharge Rx Participant: No New Discharge Prescriptions: New Apixaban [Eliquis] 5 mg PO BID #60 tab Metoprolol Tartrate [Lopressor] 12.5 mg PO BID #60 tab Nitroglycerin Sl Tabs [Nitrostat] 0.4 mg SUBLINGUAL Q5M PRN #15 tab PRN Reason: Chest Pain Continue buPROPion [Wellbutrin] 75 mg PO TID Multivitamins, Thera [Multivitamin (formulary)] 1 tab PO DAILY Aspirin EC [Ecotrin Low Dose] 81 mg PO DAILY Citalopram Hydrobromide [CeleXA] 20 mg PO DAILY SUMAtriptan succinate [Imitrex] 100 mg PO BID PRN PRN Reason: Migraine Headache Cholecalciferol [Vitamin D3 (25 Mcg = 1000 Iu)] 100 mcg PO DAILY lisinopriL [Zestril] 10 mg PO DAILY Simvastatin [Zocor] 40 mg PO HS Acetaminophen Tab [Tylenol] 500 - 1,000 mg PO Q8H PRN PRN Reason: Pain Or Fever > 100.5 Discontinued Meloxicam [Mobic] 15 mg PO DAILY Discharge Medication List Aspirin EC [Ecotrin Low Dose] 81 mg PO DAILY 07/19/21 [History] Citalopram Hydrobromide [CeleXA] 20 mg PO DAILY 07/19/21 [History] Multivitamins, Thera [Multivitamin (formulary)] 1 tab PO DAILY 07/19/21 [History] SUMAtriptan succinate [Imitrex] 100 mg PO BID PRN 07/19/21 [History] Simvastatin [Zocor] 40 mg PO HS 07/19/21 [History] buPROPion [Wellbutrin] 75 mg PO TID 07/19/21 [History] Acetaminophen Tab [Tylenol] 500 - 1,000 mg PO Q8H PRN 11/15/22 [History] Cholecalciferol [Vitamin D3 (25 Mcg = 1000 Iu)] 100 mcg PO DAILY 11/15/22 [History] lisinopriL [Zestril] 10 mg PO DAILY 11/15/22 [History] Apixaban [Eliquis] 5 mg PO BID #60 tab 11/17/22 [Rx] Metoprolol Tartrate [Lopressor] 12.5 mg PO BID #60 tab 11/17/22 [Rx] Nitroglycerin Sl Tabs [Nitrostat] 0.4 mg SUBLINGUAL Q5M PRN #15 tab 11/17/22 [Rx] Follow up Appointment(s)/Referral(s): Nicholas Rea MD [Family Provider] - 1 Week [facility] [Primary Care Provider] - 1-2 days Discharge Disposition: HOME SELF-CARE
[2022-11-17 16:38] LABS: Hepatitis B Surface AB- Quant 3.5 mIU/mL; Hepatitis B Surface Antibody Nonreactive (Nonreactive)
== END 2022-11-17 11:51 | disposition home or self-care (01) | DRG 309 ==
LOC: EC 14:13 → OBSVTOIN 17:11 → 6NMEDSUR 17:11 → UNDODISOB 11-17 11:51
PROVIDERS: ADMIT Internal Medicine; ATTEND Internal Medicine
DX: I48.0 Paroxysmal atrial fibrillation (principal); Z68.41 Body mass index [BMI] 40.0-44.9, adult; I10 Essential (primary) hypertension; E78.5 Hyperlipidemia, unspecified; F32.A Depression, unspecified; G43.909 Migraine, unspecified, not intractable, without status migrainosus; M19.90 Unspecified osteoarthritis, unspecified site; I44.0 Atrioventricular block, first degree; I45.2 Bifascicular block; I44.4 Left anterior fascicular block; G47.33 Obstructive sleep apnea (adult) (pediatric); E66.01 Morbid (severe) obesity due to excess calories; Z96.641 Presence of right artificial hip joint; Z79.899 Other long term (current) drug therapy; Z79.82 Long term (current) use of aspirin; Z79.1 Long term (current) use of non-steroidal anti-inflammatories (NSAID)
CPT/HCPCS: 36415; 71046; 71275; 80053; 80061; 83735; 84484; 85025; 85379; 85610; 85730; 86480; 86706; 93005; 93306; 93880; 94760; 99285

== ENCOUNTER → 2023-02-14 | Outpatient (CLI) | payer OTHER, MEDICARE | END | disposition home or self-care (01) | LOC: LABWHC1 09:35 | PROVIDERS: ATTEND Orthopaedic Surgery | DX: Z01.812 Encounter for preprocedural laboratory examination (principal); Z22.322 Carrier or suspected carrier of Methicillin resistant Staphylococcus aureus; M17.11 Unilateral primary osteoarthritis, right knee | CPT/HCPCS: 36415; 87070 ==

== ENCOUNTER 2023-03-25 08:32 | Observation (INO) | payer MEDICARE, OTHER ==
[2023-03-20 10:52] VITALS: BMI 44.4
--- NOTE | 2023-03-24 08:25 | P.HPOR ---
History of Present Illness H&P Date: 03/24/23 Chief Complaint: Right knee pain The patient is a 77-year-old retired male presents with progressive right knee pain for the past several years worsening recently. He's having pain with weightbearing activities. He has difficult time getting up from seated position. He tried injections along with medications without much relief. He has significant night symptoms. Recently has lost 30 pounds. He's been using a cane. Review of Systems As per HPI Past Medical History Past Medical History: Atrial Fibrillation, Hyperlipidemia, Hypertension, Osteoarthritis (OA), Sleep Apnea/CPAP/BIPAP Additional Past Medical History / Comment(s): migraines, History of Any Multi-Drug Resistant Organisms: None Reported Past Surgical History: Joint Replacement, Tonsillectomy Additional Past Surgical History / Comment(s): SINUS SURGERY, colonoscopy, rt hip replacement Past Anesthesia/Blood Transfusion Reactions: No Reported Reaction, Unable to Obtain Additional Past Anesthesia/Blood Transfusion Reaction / Comment(s): UNKNOWN FAMILY HX, ADOPTED. Smoking Status: Former smoker - Past Family History Father Family Medical History: Unable to Obtain Mother Family Medical History: Unable to Obtain Medications and Allergies Home Medications Medication Instructions Recorded Confirmed Type Aspirin EC [Ecotrin Low Dose] 81 mg PO DAILY 07/19/21 03/20/23 History Citalopram Hydrobromide [CeleXA] 20 mg PO DAILY 07/19/21 03/20/23 History Multivitamins, Thera [Multivitamin 1 tab PO DAILY 07/19/21 03/20/23 History (formulary)] SUMAtriptan succinate [Imitrex] 100 mg PO BID PRN 07/19/21 03/20/23 History Simvastatin [Zocor] 40 mg PO HS 07/19/21 03/20/23 History buPROPion [Wellbutrin] 75 mg PO TID 07/19/21 03/20/23 History Acetaminophen Tab [Tylenol] 500 - 1,000 mg PO Q8H PRN 11/15/22 03/20/23 History Cholecalciferol [Vitamin D3 (25 100 mcg PO DAILY 11/15/22 03/20/23 History Mcg = 1000 Iu)] lisinopriL [Zestril] 10 mg PO DAILY 11/15/22 03/20/23 History Metoprolol Tartrate [Lopressor] 12.5 mg PO BID #60 tab 11/17/22 03/20/23 Rx Nitroglycerin Sl Tabs [Nitrostat] 0.4 mg SUBLINGUAL Q5M PRN #15 tab 11/17/22 03/20/23 Rx Rivaroxaban [Xarelto] 20 mg PO DAILY 03/20/23 03/20/23 History Allergies Allergy/AdvReac Type Severity Reaction Status Date / Time No Known Allergies Allergy Verified 03/20/23 10:18 Physical Examination - Knee right Appearance: effusion Effusion grade: grade 1 Valgus alignment in stance: 5 degrees Tenderness with palpation: anterior, lateral Pain: throughout ROM Gait: limping, uses cane ROM: extension: -15 degrees ROM: flexion: 90 degrees Crepitus with motion: Yes Strength: extension: 5/5 Strength: flexion: 5/5 Meniscal tests: lateral meniscal tests: positive, lateral joint line pain: positive Results The patient is a well-developed well-nourished male approximate 6 foot 3, 340 pounds of endomorphic habitus. HEENT exam is nonfocal, neck is supple. He has painless passive motion of the right hip. Straight leg raise negative. His distal neurovascular appears intact in the right lower extremity. - Diagnostic results Knee x-ray: image reviewed (3 views of right knee obtained in the office show severe lateral and patellofemoral compartment osteoarthrosis with subchondral sclerosis and [id number] changes.) Assessment and Plan Assessment: Right knee severe lateral and patellofemoral compartment osteoarthrosis Obesity Plan: I talked with the patient length regarding his condition along with treatment options. The patient continues to have significant pain and mechanical symptoms related to his right knee osteoarthrosis despite conservative measures. At this point he opted to proceed with surgery. We'll plan to proceed with right total knee arthroplasty. We'll institute DVT prophylaxis postoperatively. Risks and benefits were discussed at length in layman's terms.
[~2023-03-25 08:32] MED LIST changes: +ACETAMINOPHEN TAB 500 MG TAB PO PRN; +DEXAMETHASONE SOD PHOSPHATE 4 MG/ML 1 ML VIAL IV ONE; -LACTATED RINGERS 1,000 ML IV SCH; -LIDOCAINE 1% 20 ML VIAL (10MG/ML) FOR IV START INTRADERMA PRN; +MELOXICAM 7.5 MG TAB PO PRN; +MIDAZOLAM 2 MG/2 ML VIAL IV PRN; +ONDANSETRON 4 MG/2 ML VIAL IVP ONE; +TRANEXAMIC 1,000 MG/100ML-NACL 1,000 MG in SALINE 1 100ML.BAG IVPB PRN; +ceFAZolin 3 GM in SODIUM CHLORIDE 0.9% 100 ML IVPB PRN
[2023-03-25] MEDS: LACTATED RINGERS 1,000 ML IV SCH (08:45)
[2023-03-25] MEDS ORDERED: fentaNYL (PF) 50 MCG/ML 2 ML AMP IVP ONE (09:27)
[2023-03-25 09:30] LABS: Prothrombin Time 10.4 sec (9.0-12.0)
--- NOTE | 2023-03-25 09:47 | P.ANPRN ---
Procedure Note - Anesthesia - Nerve Block Performed Right iPack Single Time Out Performed: Yes Date of Procedure: 03/25/23 Procedure Start Time: : Procedure Stop Time: :34 Indication: Acute Post-Operative Pain, Requested by Surgeon Sedation Type: Sedate with meaningful contact maintained Preparation: Sterile Prep Position: Supine Needle Types: Pajunk Needle Gauge: 21 Ultrasound used to visualize needle placement: Yes Ultrasound used to observe medication spread: Yes Injectate: 0.5% Ropivacaine (see comment for volume) (20ml) Blood Aspirated: No Pain Paresthesia on Injection Noted: No Resistance on Injection: Normal Image Stored and Saved: Yes Events: Uneventful and Well Tolerated Right Adductor Canal Infusion Time Out Performed: Yes Date of Procedure: 03/25/23 Procedure Start Time: : Procedure Stop Time: :41 Location of Patient: PreOp Indication: Acute Post-Operative Pain, Requested by Surgeon Sedation Type: Sedate with meaningful contact maintained Preparation: Sterile Prep, Sterile Dressing Position: Supine Catheter: Indwelling Needle Types: On-Q Needle Gauge: 18 Ultrasound used to visualize needle placement: Yes Ultrasound used to observe medication spread: Yes Injectate: 0.5% Ropivacaine (see comment for volume) (20ml) Blood Aspirated: Yes Pain Paresthesia on Injection Noted: Yes Resistance on Injection: Normal Events: Uneventful and Well Tolerated
[2023-03-25] MEDS ORDERED: fentaNYL (PF) 50 MCG/ML 2 ML AMP ONE (10:31)
[2023-03-25] MEDS ORDERED: PHENYLEPHRINE-0.9% NACL SYG 1,000 MCG/10 ML SYRINGE ONE (10:31)
[2023-03-25] MEDS ORDERED: TRANEXAMIC 1,000 MG/100ML-NACL PREMIX BAG ONE (10:31)
[2023-03-25] MEDS ORDERED: PROPOFOL 10 MG/ML 20 ML VIAL IV ONE (10:31)
[2023-03-25] MEDS ORDERED: ROPIVACAINE 5 MG/ML 30 ML VIAL ONE (10:31)
[2023-03-25] MEDS ORDERED: MIDAZOLAM 2 MG/2 ML VIAL ONE (10:31)
[2023-03-25] MEDS ORDERED: ePHEDrine 50 MG/ML 1 ML VIAL ONE (10:31)
--- NOTE | 2023-03-25 10:57 | P.ANPRN ---
Procedure Note - Anesthesia - Epidural/Spinal Spinal Time Out Performed: Yes Date of Procedure: 03/25/23 Procedure Start Time: 10:15 Location of Patient: OR Indication: Requested by Surgeon Sedation Type: Sedate with meaningful contact maintained Preparation: Sterile Prep Position: Sitting Needle Guage: 25 Injectate: l4/5 1.4 cc 0.75%hyperbaric bupiv, t 10 level obtained Blood Aspirated: No Pain Paresthesia on Injection Noted: No Events: Uneventful and Well Tolerated
[2023-03-25] MEDS ORDERED: ceFAZolin 3,000 MG in SODIUM CHLORIDE 0.9% IRRIGATIO 3,000 ML IRRIGATION ONE (11:17)
[2023-03-25] MEDS ORDERED: MAGNESIUM HYDROXIDE 2,400 MG/30 ML CUP PO PRN (12:19)
[2023-03-25] MEDS ORDERED: HYDROmorphone 0.5 MG/0.5 ML SYRINGE IVP PRN (12:19)
[2023-03-25] MEDS ORDERED: NALOXONE 0.4 MG/ML 1 ML VIAL IV PRN (12:19)
[2023-03-25] MEDS ORDERED: HYDROcodone/APAP 5-325MG 1 EACH TAB PO PRN (12:19)
--- NOTE | 2023-03-25 12:44 | P.OP ---
Date of Procedure: 03/25/23 Preoperative Diagnosis: Right knee severe tricompartmental osteoarthrosis Postoperative Diagnosis: Same Procedure(s) Performed: Right total knee arthroplastycementedposterior stabilized Implants: Depuy Attune size 8 cemented femoral component, size 8 cemented tibial component with a 14 x 50 mm tibial stem, 11 mm articular surface, 41 mm cemented patellar component. This is a posterior stabilized implant. Anesthesia: regional, spinal Surgeon: Michael Jimenez Shaper And Presser #1: Efrain Melendez Estimated Blood Loss (ml): 100 Pathology: other (Bone fragments) Condition: stable Disposition: PACU Indications for Procedure: The patient's a 77-year-old male who presents with progressive right knee pain secondary to osteoarthrosis despite conservative measures. A discussion of the risks and benefits of operative intervention versus continued conservative measures was made with patient. He opted to proceed with surgery. Operative risks to include infection, neurovascular injury, fracture, development of blood clots, possible component loosening, possible instability and need for subsequent procedures was discussed. Informed consent was obtained. Operative Findings: As below Description of Procedure: The patient was brought to the operating room, and after induction of spinal anesthesia the right lower extremity was prepped and draped in a normal fashion. The tourniquet was inflated to 270 mm marker. A longitudinal incision extending 3 finger breaths above the superior pole of patella extending to the medial aspect the tibial tubercle was then made. The skin and subcutaneous tissues were divided sharply. Electrocautery was used for hemostasis. A medial parapatellar arthrotomy was performed. The medial soft tissues to include the superficial and deep portions of the medial collateral ligament were elevated subperiosteally. The patella was everted. A portion of the retropatellar fat pad was excised sharply. The anterior cruciate ligament was sacrificed. Blunt retractors were placed. A starting hole was made in the distal femur 1 cm anterior to the posterior cruciate ligament origin. An intramedullary femoral guide was then inserted planning on 5 valgus distal cut with 9 mm distal resection. The cutting block was pinned in place. The distal cut was then made. The posterior referencing sizing guide was utilized. I felt size 8 was m ost appropriate. 3 of external rotation was built into the system and verified off the trans-epicondylar axis and the posterior condyles. The cutting block was pinned in place. The anterior, posterior, and chamfer cuts then made. Bone fragments were removed. The intercondylar guide was placed and the notch cut was made with a sagittal saw. The bone block was removed in one fragment. The trial component was then placed. There is good anterior to posterior and medial to lateral fit. The distal peg holes were drilled. The trial component was removed. Attention was then paid towards preparing the proximal tibia. An extra medullary guide was utilized in line with the tibial shaft and second metatarsal distally. I planned on 6 mm resection from the medial compartment. The cutting block was pinned in place. The proximal tibial cut was then made. The bone was removed in one fragment. The remnants of the medial and lateral menisci were excised at the capsular junction with electrocautery. The tibia sized most appropriately at size 8. The trial femoral and tibial components were placed along with a 11 mm articular surface. I was able to obtain full flexion and extension with internal and external rotation. After several flexion and extension cycles, the tibial rotation was marked with electrocautery line with the medial one third of the tibial tubercle. Attention was then paid towards preparing the patella. A patella reamer was utilized taking stem to 14 mm of bone stock. A good flush cut was made. The patella sized most appropriately 41 mm. The peg holes were drilled. The trial components placed. I had good patellofemoral tracking with no hands technique. The trial components were then removed. The tibia was prepared in the appropriate rotation with appropriate drill and keel punch. The posterior osteophytes were removed with a curved osteotome. The flexion and extension gaps were checked and felt to be symmetric at 11 mm. A trial components were then removed. The bony surfaces were prepared with pulsatile lavage and dried. The tibial component was then cemented place was fully seated. Excess cement was removed. The femoral component cemented place and was fully seated. Excess cement was removed. The trial 11 mm articular surface was placed and the knee was put in full extension. The patella component was cemented place. After the cement had sufficiently hardened, the knee was again taken through a range of motion. Again I was able to obtain full flexion and extension with varus and valgus stress. The trial 11 mm articular surface was removed and the final one inserted. This was fully seated. Care was taken to avoid any soft tissue interposition. Pulsatile lavage was again utilized. The medial parapatellar ar throtomy was closed with #2 Ethibond suture. The tourniquet was deflated with approximately 60 minutes total tourniquet time. Final hemostasis was obtained with the cautery. There was minimal bleeding therefore a deep drain was not placed. The subcutaneous tissues were reapproximated with interrupted 2-0 Vicryl sutures. The skin was reapproximated with 3-0 subcuticular strata fix suture. Skin tape and adhesive was applied. A sterile dressing was applied. The patient was awoken from sedation and transferred to recovery room in good condition. Blood loss was estimated at 100 mL. No complications were incurred. Sponge and needle counts were correct at the end of the case. Efrain SÁNCHEZ assisted during the major components of this case to include exposure, bone resection, implantation, and closure.
[2023-03-25] MEDS: HYDROmorphone 0.5 MG/0.5 ML SYRINGE IVP PRN ×3 (13:12→13:34)
[2023-03-25] MEDS ORDERED: ROPIVACAINE 1,100 MG, SODIUM CHLORIDE 0.9% 500 ML 330 ML, EMPTY PAIN BALL 1 EACH MISCELLANE PRN ×2 (13:12)
--- NOTE | 2023-03-25 13:16 | XR ---
EXAMINATION TYPE: XR knee limited RT DATE OF EXAM: 03/25/2023 1:09 PM INDICATION: Patient age:Male; 77 years old; Reason for study: Evaluation for Postop abnormality and alignment; H. COMPARISON: Right knee radiograph 12/11/2022 TECHNIQUE: The Right knee(s) was examined in frontal and crosstable lateral projections. FINDINGS: Postsurgical changes from total right knee arthroplasty with distal femoral and proximal tibial components. Hardware appears intact with appropriate alignment. There is associated soft tissu e edema and gas. No acute fracture or dislocation. IMPRESSION: Postsurgical changes from total right knee arthroplasty. Hardware appears intact with appropriate ali gnment.
[2023-03-25] MEDS ORDERED: LACTATED RINGERS 1,000 ML IV ONE (13:21)
[2023-03-25] MEDS ORDERED: NITROGLYCERIN SL TABS 0.4 MG TAB SUBLINGUAL PRN (14:12)
--- NOTE | 2023-03-25 14:12 | P.CONS ---
History of Present Illness - Reason for Consult Consult date: 03/25/23 Medical managent Requesting physician: Michael Jimenez - History of Present Illness History of Presenting Illness: Patient is a very pleasant 77-year-old male with a past medical history of hypertension, hyperlipidemia, atrial fibrillation on anticoagulation with Xarelto, obstructive sleep apnea CPAP dependent nightly, and osteoarthrosis. Patient currently admitted under orthopedic surgery team status post elective right total knee arthroplasty secondary to severe tricompartmental osteoarthrosis. We have been consulted for medical management throughout hospitalization. Patient seen and fully evaluated at bedside upon arrival to room 477. Patient currently reports postoperative pain is controlled and denies having any nausea or vomiting. Patient also denies having any headache, lightheadedness, dizziness, chest pain, palpitations, shortness of breath, or any other complaints at this time. Patient tolerating clear liquid status post surgical procedure and diet being advanced at this time. Review of systems: Pertinent positives and negatives as discussed in HPI, a complete review of systems was performed and all other systems are negative. Physical exam: Vital signs reviewed and stable. General: Nontoxic, no distress and appears stated age. Derm: Skin warm and dry, normal coloration for ethnicity. Head: Atraumatic, normocephalic and symmetric. Eyes: EOMs intact, no lid lag, and anicteric sclera Mouth: no lip lesions, mucus membranes moist Cardiovascular: regular rate and rhythm with normal S1S2, no murmur, positive posterior tibial pulses bilaterally, and cap refill < 2 seconds. Lungs: Respirations even, regular, and unlabored on room air. Lungs CTA bilaterally, no rhonchi, no rales, no wheezing, and no accessory muscle usage. Abdominal: soft, nontender to palpation, no guarding, no appreciable organomegaly Ext: No gross muscle atrophy, no edema, no contractures. Movement and sensation intact. Post-surgical dressing and Dani wrap in place. Neuro: Speech clear, face symmetrical and CN II-XII grossly intact with no noted focal neuro deficits Psych: Alert and oriented to person, place, time, and situation. Appropriate and pleasant affect. Assessment and Plan of Care: Status post right total knee arthroplasty Tricompartmental osteoarthrosis Paroxysmal Atrial fibrillation -Patient to continue with anticoagulation with Xarelto 20 mg daily as cleared by surgery team. Hypertension -Vital signs reviewed and stable. Blood pressure 111/73, heart rate 72, respiratory rate 18, and SpO2 of 95% on 2 L. -Patient to continue daily medication regimen with lisinopril 10 mg daily and metoprolol 12.5 mg twice daily. Hyperlipidemia -Patient to continue with aspirin 81 mg daily and atorvastatin 20 mg nightly. Obstructive sleep apnea -Continue home CPAP nightly. Thank you for allowing us to participate in the care of this pleasant patient. Do not hesitate to contact us with questions. Someone can be reached from the [facility] [place] hospitalist group all hours of the day at [phone] or via [phone]. Patient was seen independently by Nurse Practitioner. This document was prepared using [employer] dictation software. Please allow for errors in family service counselor while rare they do occur. I reviewed the documentation as provided by the KATHI above, who is the original author of this note. I agree with the documented assessment and plan, with the following changes: none Past Medical History Past Medical History: Atrial Fibrillation, Hyperlipidemia, Hypertension, Osteoarthritis (OA), Sleep Apnea/CPAP/BIPAP Additional Past Medical History / Comment(s): migraines, History of Any Multi-Drug Resistant Organisms: None Reported Past Surgical History: Joint Replacement, Tonsillectomy Additional Past Surgical History / Comment(s): SINUS SURGERY, colonoscopy, rt hip replacement Past Anesthesia/Blood Transfusion Reactions: No Reported Reaction, Unable to Obtain Additional Past Anesthesia/Blood Transfusion Reaction / Comm: UNKNOWN FAMILY HX, ADOPTED. Smoking Status: Former smoker - Past Family History Father Family Medical History: Unable to Obtain Mother Family Medical History: Unable to Obtain Medications and Allergies Home Medications Medication Instructions Recorded Confirmed Type Aspirin EC [Ecotrin Low Dose] 81 mg PO DAILY 07/19/21 03/28/23 History Citalopram Hydrobromide [CeleXA] 20 mg PO DAILY 07/19/21 03/28/23 History Multivitamins, Thera [Multivitamin 1 tab PO DAILY 07/19/21 03/28/23 History (formulary)] SUMAtriptan succinate [Imitrex] 100 mg PO BID PRN 07/19/21 03/28/23 History Simvastatin [Zocor] 40 mg PO HS 07/19/21 03/28/23 History buPROPion [Wellbutrin] 75 mg PO TID 07/19/21 03/28/23 History Acetaminophen Tab [Tylenol] 500 - 1,000 mg PO Q8H PRN 11/15/22 03/28/23 History Cholecalciferol [Vitamin D3 (25 100 mcg PO DAILY 11/15/22 03/28/23 History Mcg = 1000 Iu)] lisinopriL [Zestril] 10 mg PO DAILY 11/15/22 03/28/23 History Metoprolol Tartrate [Lopressor] 12.5 mg PO BID #60 tab 11/17/22 03/28/23 Rx Nitroglycerin Sl Tabs [Nitrostat] 0.4 mg SUBLINGUAL Q5M PRN #15 tab 11/17/22 03/28/23 Rx Rivaroxaban [Xarelto] 20 mg PO DAILY 03/20/23 03/28/23 History Cyclobenzaprine [Flexeril] 10 mg PO HS #20 tab 03/27/23 03/28/23 Rx Acetaminophen Tab [Tylenol] 650 mg PO Q6HR PRN tab 03/31/23 Rx HYDROcodone/APAP 10-325MG [[place] 1 tab PO Q6HR PRN #12 tab 03/31/23 Rx 10-325] Allergies Allergy/AdvReac Type Severity Reaction Status Date / Time No Known Allergies Allergy Verified 03/28/23 15:50 Physical Exam Vitals: Vital Signs Temp Pulse Pulse Resp BP Pulse Ox 03/25/23 13:44 69 16 96/55 94 L 03/25/23 13:30 64 16 96/55 94 L 03/25/23 13:16 64 16 109/63 94 L 03/25/23 13:00 67 16 100/51 94 L 03/25/23 12:50 66 16 99/52 94 L 03/25/23 12:45 69 16 97/55 94 L 03/25/23 12:42 97.2 F L 68 16 110/58 94 L 03/25/23 09:50 65 18 126/60 98 03/25/23 08:44 98.0 F 72 20 138/67 99 Intake and Output 03/24/23 03/25/23 03/25/23 22:59 06:59 14:59 Intake Total 4050 Output Total 100 Balance 3950 Intake: IV 4050 Output: Estimated Blood Loss 100 Other: Weight 163.5 kg Results CBC & Chem 7: 03/26/23 06:57 03/26/23 06:57
[2023-03-25] MEDS: buPROPion 75 MG TAB PO SCH ×2 (16:45→21:54)
[2023-03-25] MEDS: HYDROcodone/APAP 7.5-325MG 1 EACH TAB PO PRN (18:29)
[2023-03-25] MEDS: ceFAZolin 3 GM in SODIUM CHLORIDE 0.9% 100 ML IVPB SCH (19:04)
[2023-03-25] MEDS ORDERED: SUMAtriptan succinate 50 MG TAB PO PRN (21:34)
[2023-03-25] MEDS: METOPROLOL TARTRATE 12.5 MG TAB PO SCH (21:54)
[2023-03-25] MEDS: ATORVASTATIN 20 MG TAB PO SCH (21:54)
[2023-03-25] MEDS: SENNOSIDES-DOCUSATE SODIUM 1 EACH TAB PO SCH (21:54)
[2023-03-26] MEDS: ceFAZolin 3 GM in SODIUM CHLORIDE 0.9% 100 ML IVPB SCH (01:33)
[2023-03-26] MEDS: HYDROcodone/APAP 7.5-325MG 1 EACH TAB PO PRN (03:33)
--- NOTE | 2023-03-26 06:47 | P.PN ---
Progress Note - Text Progress Note Date: 03/26/23 Postoperative day # 1 status post total knee arthroplasty, and adductor canal catheter placed for postoperative analgesia, currently at ropivacaine 0.2% 8 mL per hour and continuous infusion, visual analogue scale is 3/10, patient using oral pain medication for breakthrough pain. Assessment and plan= Acute postoperative pain, adductor canal catheter for pain control, pain is well controlled we'll continue the same management.
[2023-03-26] MEDS: LACTATED RINGERS 1,000 ML IV SCH (07:02)
[2023-03-26] MEDS: buPROPion 75 MG TAB PO SCH ×3 (09:22→21:25)
[2023-03-26] MEDS: ASPIRIN 81 MG PO SCH (09:22)
[2023-03-26] MEDS: CITALOPRAM HYDROBROMIDE 20 MG TAB PO SCH (09:22)
[2023-03-26] MEDS: METOPROLOL TARTRATE 12.5 MG TAB PO SCH ×2 (09:22→20:07)
[2023-03-26] MEDS: MULTIVITAMINS, THERA 1 EACH TAB PO SCH (09:22)
[2023-03-26] MEDS: RIVAROXABAN 20 MG TAB PO SCH (09:22)
[2023-03-26] MEDS: lisinopriL 10 MG TAB PO SCH (09:22)
[2023-03-26] MEDS: HYDROmorphone 0.5 MG/0.5 ML SYRINGE IVP PRN ×3 (09:29→21:25)
[2023-03-26] MEDS ORDERED: hydrOXYzine pamoate 25 MG CAP PO PRN (10:07)
[2023-03-26 11:53] LABS: HGB 11.7 d/dL (13.0-17.0); MCH 29.5 pg (27.0-32.0); MCHC 31.6 d/dL (32.0-37.0); MCV 93.4 FL (80.0-97.0); Mean Platelet Volume 10.5 FL (9.5-12.2); NRBC Per 100 WBC 0 X 10*3/uL (0.00-0.01); Platelet Count 217 X 10*3/uL (140-440); RBC 3.96 X 10*6/uL (4.40-5.60); RDW 13.8 % (11.5-14.5); WBC 14.29 X 10*3/uL (4.50-10.00)
[2023-03-26 12:14] LABS: Blood Urea Nitrogen 25.3 mg/dL (9.0-27.0); Calcium 9.2 mg/dL (8.7-10.3); Carbon Dioxide 24.4 mmol/L (21.6-31.8); Chloride 100 mmol/L (96-109); Glucose 128 mg/dL (70-110); Potassium 4.5 mmol/L (3.5-5.5); Sodium 139 mmol/L (135-145)
--- NOTE | 2023-03-26 12:18 | P.PN ---
Subjective Progress Note Date: 03/26/23 Principal diagnosis: Right knee osteoarthritis Patient was seen at bedside this morning sitting up in chair with legs elevated. Dressing is present over right knee. Patient says he has been in a lot of pain since surgery was performed yesterday. Patient says physical therapy did come by this morning and he did have a difficult time getting from bed to the chair. Patient says he has urinated since surgery. Patient says he has not had bowel movement yet, however, patient says he has been passing gas. Patient says once he goes home, his son will be able to help him out. Patient says he does not have a walker at home. Patient states most the pain is located at the front of the knee. He says there is a little bit of radiation down the leg. Patient denies chest pain, fever, shortness breath, nausea, vomiting, change in vision, loss of bowel/bladder control. Objective - Vital Signs Vital signs: Vital Signs Temp 98.1 F 03/26/23 07:01 Pulse 69 03/26/23 07:01 Resp 16 03/26/23 07:01 BP 160/67 03/26/23 07:01 Pulse Ox 96 03/26/23 09:33 FiO2 Intake & Output 03/25/23 03/26/23 03/26/23 18:59 06:59 18:59 Intake Total 4230 540 Output Total 100 Balance 4130 540 Weight 163.5 kg Intake: IV 4050 Intake, IV Titration 180 300 Amount Lactated Ringers 1,000 ml 80 200 @ 20 mls/hr IV .Q24H [facility] Rx#:[id number] ceFAZolin 3 gm In Sodium 100 100 Chloride 0.9% 100 ml @ 200 mls/hr IVPB Q8H [facility] Rx#:[id number] Oral 240 Output: Estimated Blood Loss 100 Other: # Voids 2 1 - Exam Right knee: Incision is clean, dry, and intact. The exofin fusion tape is in good condition. There is minimal soft tissue swelling and ecchymosis surrounding the medial and lateral aspects of the incision. Calf is soft, no tenderness with palpation. Plantar flexion, dorsiflexion, EHL, FHL are intact. Sensory exam to light touch throughout the extremity is intact, dorsal pedis pulses 2+. - Labs CBC & Chem 7: 03/26/23 06:57 03/26/23 06:57 Assessment and Plan Assessment: 1. Right knee osteoarthritis - Postop day #1 status post right total knee arthroplasty Plan: 1. Right knee osteoarthritis - right total knee arthroplasty performed yesterday, 03/25/2023. Patient stable at bedside this morning. Patient has been in a moderate amount of pain since surgery yesterday. We'll adjust pain medication. Add [place] 10/325. Add Vistaril every 6 hours. PT/OT daily. Prescription for walker was signed. We'll continue to follow patient during his stay in hospital. Plan for discharge home tomorrow versus Friday. 2. Appreciate medical management 3. Pain management - [place]; Vistaril 4. DVT prophylaxis - Xarelto 5. GI prophylaxis - senna 6. PT/OT - weightbearing as tolerated with walker 7. Encourage incentive spirometer use 8. Discharge planning - land for discharge home tomorrow versus Friday with health services Time with Patient: Less than 30
[2023-03-26 12:38] LABS: Basophils # (A) 0.04 X 10*3/uL (0.00-0.10); Basophils % (A) 0.3 %; Eosinophils % (A) 0.7 %; Lymphocytes # (A) 1.86 X 10*3/uL (0.90-5.00); Monocytes # (A) 1.54 X 10*3/uL (0.20-1.00); Monocytes % (A) 10.8 %; Neutrophils # (A) 10.69 X 10*3/uL (1.80-7.70); Neutrophils % (A) 74.8 %
[2023-03-26] MEDS: HYDROcodone/APAP 10-325MG 1 EACH TAB PO PRN ×2 (12:48→20:08)
--- NOTE | 2023-03-26 14:51 | P.PN ---
Subjective Progress Note Date: 03/26/23 History of Presenting Illness: Patient is a very pleasant 77-year-old male with a past medical history of hypertension, hyperlipidemia, atrial fibrillation on anticoagulation with Xarel to, obstructive sleep apnea CPAP dependent nightly, and osteoarthrosis. Patient currently admitted under orthopedic surgery team status post elective right total knee arthroplasty secondary to severe tricompartmental osteoarthrosis. We have been consulted for medical management throughout hospitalization. Physical exam: Patient seen and fully evaluated at that visit this morning. Patient sitting up in chair at bedside reports having moderate postoperative pain throughout the night. Patient states is his night was difficult secondary to uncontrolled pain. He reports he has hearty discussed this with orthopedic surgeon PRINCESS and they're making adjustments. Patient was able to get up and ambulate with physical therapy this morning. Vital signs reviewed and stable. General: Nontoxic, no distress and appears stated age. Derm: Skin warm and dry, normal coloration for ethnicity. Head: Atraumatic, normocephalic and symmetric. Eyes: EOMs intact, no lid lag, and anicteric sclera Mouth: no lip lesions, mucus membranes moist Cardiovascular: regular rate and rhythm with normal S1S2, no murmur, positive posterior tibial pulses bilaterally, and cap refill < 2 seconds. Lungs: Respirations even, regular, and unlabored on room air. Lungs CTA bilaterally, no rhonchi, no rales, no wheezing, and no accessory muscle usage. Abdominal: soft, nontender to palpation, no guarding, no appreciable organomegaly Ext: No gross muscle atrophy, no edema, no contractures. Movement and sensation intact. Post-surgical dressing and Dani wrap in place. Neuro: Speech clear, face symmetrical and CN II-XII grossly intact with no noted focal neuro deficits Psych: Alert and oriented to person, place, time, and situation. Appropriate and pleasant affect. Assessment and Plan of Care: Acute postoperative blood loss anemia, expected finding Postoperative Leukocytosis, reactive Status post right total knee arthroplasty Tricompartmental osteoarthrosis -Management per primary admitting orthopedic surgery team including DVT prophylaxis, pain management, wound/dressing care, weightbearing, and PT/OT. -Patient currently on DVT prophylaxis with Xarelto. -Data review: Reviewed morning labs. CBC showing leukocytosis with WBC count of 14.29, postoperative hemoglobin 11.7 with preoperative hemoglobin of 13.7. BMP unremarkable. Magnesium also normal findings at 2.0. Paroxysmal Atrial fibrillation -Patient to continue with anticoagulation with Xarelto 20 mg daily Hypertension -Vital signs reviewed and stable. Blood pressure 160/67, heart rate 69, respiratory rate 16, temp 98.1F, SpO2 90% on room air. -Patient to continue daily medication regimen with lisinopril 10 mg daily and metoprolol 12.5 mg twice daily. Hyperlipidemia -Patient to continue with aspirin 81 mg daily and atorvastatin 20 mg nightly. Obstructive sleep apnea -Continue home CPAP nightly. Thank you for allowing us to participate in the care of this pleasant patient. Do not hesitate to contact us with questions. Someone can be reached from the [facility] hospitalist group all hours of the day at [phone] or via [employer]. Patient was seen independently by Nurse Practitioner. This document was prepared using [employer] dictation software. Please allow for errors in office nurse practitioner while rare they do occur. I reviewed the documentation as provided by the KATHI above, who is the original author of this note. I agree with the documented assessment and plan, with the following changes: none Objective - Vital Signs Vital signs: Vital Signs Temp 98.1 F 03/26/23 07:01 Pulse 69 03/26/23 07:01 Resp 16 03/26/23 07:01 BP 160/67 03/26/23 07:01 Pulse Ox 90 L 03/26/23 07:01 FiO2 Intake & Output 03/25/23 03/26/23 03/26/23 18:59 06:59 18:59 Intake Total 4230 540 Output Total 100 Balance 4130 540 Weight 163.5 kg Intake: IV 4050 Intake, IV Titration 180 300 Amount Lactated Ringers 1,000 ml 80 200 @ 20 mls/hr IV .Q24H [facility] Rx#:[id number] ceFAZolin 3 gm In Sodium 100 100 Chloride 0.9% 100 ml @ 200 mls/hr IVPB Q8H [facility] Rx#:[id number] Oral 240 Output: Estimated Blood Loss 100 Other: # Voids 2 1 - Labs CBC & Chem 7: 03/26/23 06:57 03/26/23 06:57
[2023-03-26] MEDS: SENNOSIDES-DOCUSATE SODIUM 1 EACH TAB PO SCH (20:07)
[2023-03-26] MEDS: ATORVASTATIN 20 MG TAB PO SCH (20:07)
[2023-03-26] MEDS ORDERED: CYCLOBENZAPRINE 10 MG TAB PO SCH (21:00)
[2023-03-27] MEDS: HYDROcodone/APAP 7.5-325MG 1 EACH TAB PO PRN (01:12)
[2023-03-27] MEDS: LACTATED RINGERS 1,000 ML IV SCH (06:03)
[2023-03-27] MEDS: HYDROmorphone 0.5 MG/0.5 ML SYRINGE IVP PRN (06:07)
[2023-03-27 07:24] VITALS: RESP 17
[2023-03-27] MEDS: HYDROcodone/APAP 10-325MG 1 EACH TAB PO PRN ×2 (07:37→14:18)
[2023-03-27] MEDS: CITALOPRAM HYDROBROMIDE 20 MG TAB PO SCH (09:09)
[2023-03-27] MEDS: ASPIRIN 81 MG PO SCH (09:09)
[2023-03-27] MEDS: MULTIVITAMINS, THERA 1 EACH TAB PO SCH (09:09)
[2023-03-27] MEDS: buPROPion 75 MG TAB PO SCH (09:09)
[2023-03-27] MEDS: RIVAROXABAN 20 MG TAB PO SCH (09:09)
[2023-03-27] MEDS: METOPROLOL TARTRATE 12.5 MG TAB PO SCH (10:47)
[2023-03-27] MEDS: lisinopriL 10 MG TAB PO SCH (10:47)
[2023-03-27 14:01] VITALS: BP 107/67; PULSE 76; TEMP 99.6
--- NOTE | 2023-03-27 14:29 | P.PN ---
Subjective Progress Note Date: 03/27/23 History of Presenting Illness: Patient is a very pleasant 77-year-old male with a past medical history of hypertension, hyperlipidemia, atrial fibrillation on anticoagulation with Xarelto, obstructive sleep apnea CPAP dependent nightly, and osteoarthrosis. Patient currently admitted under orthopedic surgery team status post elective right total knee arthroplasty secondary to severe tricompartmental ost eoarthrosis. We have been consulted for medical management throughout hospitalization. Physical exam: Patient seen and examined this morning. He reports pain in his right knee but able to work with PT. Plans for discharge home. Urinating freely. Passing gas. Vital signs reviewed and stable. General: Nontoxic, no distress and appears stated age. Derm: Skin warm and dry, normal coloration for ethnicity. Head: Atraumatic, normocephalic and symmetric. Eyes: EOMs intact, no lid lag, and anicteric sclera Cardiovascular: regular rate and rhythm with normal S1S2, no murmur Lungs: Respirations even, regular, and unlabored on room air. Lungs CTA bilaterally, no rhonchi, no rales, no wheezing, and no accessory muscle usage. Ext: No gross muscle atrophy, no edema, no contractures. Movement and sensation intact. Post-surgical dressing and Dani wrap in place. Neuro: Speech clear, face symmetrical Psych: Alert and oriented to person, place, time, and situation. Appropriate and pleasant affect. Assessment and Plan of Care: Acute postoperative blood loss anemia, expected finding Postoperative Leukocytosis, reactive Status post right total knee arthroplasty Tricompartmental osteoarthrosis -Management per primary admitting orthopedic surgery team including DVT prophylaxis, pain management, wound/dressing care, weightbearing, and PT/OT. -Patient currently on DVT prophylaxis with Xarelto. Paroxysmal Atrial fibrillation -Patient to continue with anticoagulation with Xarelto 20 mg daily Hypertension -Vital signs reviewed and stable. Blood pressure 107/67, heart rate 76, respir atory rate 17, temp 99.6F, SpO2 98% on room air. -Patient to continue daily medication regimen with lisinopril 10 mg daily and metoprolol 12.5 mg twice daily. Hyperlipidemia -Patient to continue with aspirin 81 mg daily and atorvastatin 20 mg nightly. Obstructive sleep apnea -Continue home CPAP nightly. Thank you for allowing us to participate in the care of this pleasant patient. Do not hesitate to contact us with questions. Someone can be reached from the [facility] hospitalist group all hours of the day at [phone] or via [employer]. Patient is medically stable for discharge. Objective - Vital Signs Vital signs: Vital Signs Temp 99.6 F 03/27/23 13:21 Pulse 76 03/27/23 13:21 Resp 17 03/27/23 13:21 BP 107/67 03/27/23 13:21 Pulse Ox 98 03/27/23 13:21 FiO2 Intake & Output 03/26/23 03/27/23 03/27/23 18:59 06:59 18:59 Intake Total 440 Output Total 500 700 Balance -500 440 -700 Intake: Intake, IV Titration 200 Amount Lactated Ringers 1,000 ml 200 @ 20 mls/hr IV .Q24H [facility] Rx#:[id number] Oral 240 Output: Gastric Drainage 500 Urine 700 Other: Voiding Method Urinal # Voids 1 - Labs CBC & Chem 7: 03/26/23 06:57 03/26/23 06:57
--- NOTE | 2023-03-27 15:22 | P.PN ---
Subjective Progress Note Date: 03/27/23 Principal diagnosis: Right knee osteoarthritis Patient was seen at bedside this afternoon sitting up in chair with legs elevated. Dressing is present over right knee, CDI. Patient states his pain has been managed on current regimen. Patient states he prefers to go home with his sons assistance due to his out of pocket pay for rehab. Patient denies chest pain, fever, shortness breath, nausea, vomiting, change in vision, loss of bowel/bladder control. Objective - Vital Signs Vital signs: Vital Signs Temp 98.9 F 03/27/23 01:14 Pulse 73 03/27/23 10:46 Resp 17 03/27/23 07:35 BP 118/70 03/27/23 10:46 Pulse Ox 93 L 03/27/23 10:26 FiO2 Intake & Output 03/26/23 03/27/23 03/27/23 18:59 06:59 18:59 Intake Total 440 Output Total 500 700 Balance -500 440 -700 Intake: Intake, IV Titration 200 Amount Lactated Ringers 1,000 ml 200 @ 20 mls/hr IV .Q24H [facility] Rx#:[id number] Oral 240 Output: Gastric Drainage 500 Urine 700 Other: Voiding Method Urinal # Voids 1 - Exam Right knee: Incision is clean, dry, and intact. The exofin fusion tape is in good condition. There is minimal soft tissue swelling and ecchymosis surrounding the medial and lateral aspects of the incision. Calf is soft, no tenderness with palpation. Plantar flexion, dorsiflexion, EHL, FHL are intact. Sensory exam to light touch throughout the extremity is intact, dorsal pedis pulses 2+. - Labs CBC & Chem 7: 03/26/23 06:57 03/26/23 06:57 Labs: Abnormal Lab Results - Last 24 Hours (Table) 03/26/23 03/26/23 Range/Units 06:57 06:57 Neutrophils # 10.69 H (1.80-7.70) X 10*3/uL Monocytes # 1.54 H (0.20-1.00) X 10*3/uL Anion Gap 14.60 H (4.00-12.00) mmol/L BUN/Creatinine Ratio 23.00 H (12.00-20.00) Ratio Glucose 128 H (70-110) mg/dL Assessment and Plan Assessment: 1. Right knee osteoarthritis - Postop day #2 status post right total knee arthroplasty Plan: 2. Appreciate medical management 3. Pain management - [place]; Vistaril 4. DVT prophylaxis - Xarelto 5. GI prophylaxis - senna 6. PT/OT - weightbearing as tolerated with walker 7. Encourage incentive spirometer use 8. Discharge planning - plan for discharge home today with health services Time with Patient: Less than 30
--- NOTE | 2023-03-27 15:25 | P.DS ---
Providers Date of admission: 03/25/23 08:33 Expected date of discharge: 03/27/23 Attending physician: Michael Jimenez Consults: 03/25/23 12:19 Consult Physician Routine Consulting Provider: Hailey Daugherty Consult Reason/Comments: medical management s/p right total knee arthroplasty Do you want consulting provider notified?: Yes Primary care physician: [facility] Hospital Course: The patient was evaluated preoperatively and found to have the diagnosis of right knee osteoarthritis. They underwent appropriate preoperative care and were willing to undergo the intended procedure. They underwent a successful right knee arthroplasty, were recovered appropriately and sent to the floor. While on the floor they worked with physical therapy, occupational therapy and nursing to enhance their recovery experience. Their pain was well controlled through their stay and they were started on appropriate medications, DVT ppx modalities, activity and dietary needs. Daily labs were monitored closely, and transfusions were only used when necessary. Medicine as well as other consulting services have made their input and have helped with our team approach and multidisciplinary care. PT milestones have been met and passed and they have made the recommendation of home for this patient and treating providers agree with this care path. The patient will be discharged home with homecare with appropriate medications, instructions and follow-up information and in stable condition. Patient Condition at Discharge: Good Plan - Discharge Summary Discharge Rx Participant: Yes New Discharge Prescriptions: New HYDROcodone/APAP 10-325MG [[place] 10-325] 1 tab PO Q6HR PRN #42 tab PRN Reason: Pain Cyclobenzaprine [Flexeril] 10 mg PO HS #20 tab Continue buPROPion [Wellbutrin] 75 mg PO TID Multivitamins, Thera [Multivitamin (formulary)] 1 tab PO DAILY Aspirin EC [Ecotrin Low Dose] 81 mg PO DAILY Citalopram Hydrobromide [CeleXA] 20 mg PO DAILY SUMAtriptan succinate [Imitrex] 100 mg PO BID PRN PRN Reason: Migraine Headache Cholecalciferol [Vitamin D3 (25 Mcg = 1000 Iu)] 100 mcg PO DAILY lisinopriL [Zestril] 10 mg PO DAILY Metoprolol Tartrate [Lopressor] 12.5 mg PO BID #60 tab Nitroglycerin Sl Tabs [Nitrostat] 0.4 mg SUBLINGUAL Q5M PRN #15 tab PRN Reason: Chest Pain Rivaroxaban [Xarelto] 20 mg PO DAILY Simvastatin [Zocor] 40 mg PO HS Acetaminophen Tab [Tylenol] 500 - 1,000 mg PO Q8H PRN PRN Reason: Pain Or Fever > 100.5 Discharge Medication List Aspirin EC [Ecotrin Low Dose] 81 mg PO DAILY 07/19/21 [History] Citalopram Hydrobromide [CeleXA] 20 mg PO DAILY 07/19/21 [History] Multivitamins, Thera [Multivitamin (formulary)] 1 tab PO DAILY 07/19/21 [History] SUMAtriptan succinate [Imitrex] 100 mg PO BID PRN 07/19/21 [History] Simvastatin [Zocor] 40 mg PO HS 07/19/21 [History] buPROPion [Wellbutrin] 75 mg PO TID 07/19/21 [History] Acetaminophen Tab [Tylenol] 500 - 1,000 mg PO Q8H PRN 11/15/22 [History] Cholecalciferol [Vitamin D3 (25 Mcg = 1000 Iu)] 100 mcg PO DAILY 11/15/22 [History] lisinopriL [Zestril] 10 mg PO DAILY 11/15/22 [History] Metoprolol Tartrate [Lopressor] 12.5 mg PO BID #60 tab 11/17/22 [Rx] Nitroglycerin Sl Tabs [Nitrostat] 0.4 mg SUBLINGUAL Q5M PRN #15 tab 11/17/22 [Rx] Rivaroxaban [Xarelto] 20 mg PO DAILY 03/20/23 [History] Cyclobenzaprine [Flexeril] 10 mg PO HS #20 tab 03/27/23 [Rx] HYDROcodone/APAP 10-325MG [[place] 10-325] 1 tab PO Q6HR PRN #42 tab 03/27/23 [Rx] Follow up Appointment(s)/Referral(s): Efrain Melendez, PAC [PHYSICIAN DISTRIBUTOR SALES MANAGER] - 04/10/23 8:50 am [facility] [NON-STAFF] - As Needed [facility],Clinic [Primary Care Provider] - As Needed (Please call for a follow-up appointment.) Patient Instructions/Handouts: Knee Replacement (DC) Activity/Diet/Wound Care/Special Instructions: Orthopedic Discharge Instructions: 1. Wound care and infection precautions, keep incision dry and covered while showering, no lotions, creams, moisturizers. No soaking, pools, hot tubs. Do not scrub over incision. 2. Weight-bear as tolerated with walker / cane until follow-up. 3. Ice and elevate when necessary. Do not exceed 20 minutes per hour with ice pack. 4. Utilize compression sleeve until seen at first follow up appointment. 5. Pain meds and anticoagulants per prescription. 6. Pain medication has potential to cause constipation. Increase oral fluid and fiber intake. Contact primary care provider if you have not had a bowel movement within 48 hours after discharge. 7. No anti-inflammatory medication until discussed at first post operative visit, this including Motrin, Aleve, Mobic, Diclofenac. 8. Follow up in office at 2 weeks postop with Elvis Reyes PA-C / Efrani Melendez PA-C 9. Follow up with your primary care doctor 7-10 days after discharge. 10. Contact [facility] with any questions, . Keep incision clean, dry, intact. While showering, cover incision with Saran wrap. Keep fusion tape on until follow-up appointment in office in 2 weeks. Discharge Disposition: HOME WITH HOME HEALTH SERVICES
== END 2023-03-27 15:43 | disposition home health service (06) ==
LOC: OR 08:32 → 4SSUR 08:33
PROVIDERS: ADMIT Orthopaedic Surgery; ATTEND Orthopaedic Surgery
DX: M17.11 Unilateral primary osteoarthritis, right knee (principal); I10 Essential (primary) hypertension; E78.5 Hyperlipidemia, unspecified; G47.33 Obstructive sleep apnea (adult) (pediatric); G43.909 Migraine, unspecified, not intractable, without status migrainosus; E66.9 Obesity, unspecified; Z68.42 Body mass index [BMI] 45.0-49.9, adult; I48.0 Paroxysmal atrial fibrillation; D62 Acute posthemorrhagic anemia; Z87.891 Personal history of nicotine dependence; Z96.641 Presence of right artificial hip joint; Z79.82 Long term (current) use of aspirin; Z79.899 Other long term (current) drug therapy; Z79.01 Long term (current) use of anticoagulants
CPT/HCPCS: 94660 ×2; 94760 ×2; 97116; 97161; 97535; 97166; 64999; 64448; 80048; 83735; 85025; 85610; 73560; 27447; G0378; C1713 ×2; C1776; C1751; J2250; J1100; J0690 ×3; J2405; J3010; J2795; J2704; J1170 ×3; J2371

== ENCOUNTER 2023-03-28 13:43 | Inpatient (IN) | payer OTHER, MEDICARE ==
[2023-03-28] MEDS ORDERED: HYDROcodone/APAP 10-325MG 1 EACH TAB PO PRN (15:17)
[2023-03-28] MEDS ORDERED: CYCLOBENZAPRINE 10 MG TAB PO PRN (15:17)
--- NOTE | 2023-03-28 15:18 | ED ---
Lower Extremity Injury HPI - General Chief Complaint: Extremity Injury, Lower Stated Complaint: Post-op right knee pain Time Seen by Provider: 03/28/23 14:23 Source: patient, EMS, RN notes reviewed Mode of arrival: EMS - History of Present Illness Initial Comments: Patient is a 77-year-old male presenting to the emergency room via EMS with complaints of severe postoperative right knee pain, decreased mobility and the inability to care for himself at home; his family is unable to care for him as well. He was discharged yesterday from the hospital after undergoing a total right knee arthroplasty with cement and posterior stabilization. He tolerated the procedure well. His pain and mobility status were poor upon discharge and physical therapy recommended that he go to inpatient rehab however due to cost he elected to go home. Unfortunately since going home he has realized that he is unable to care for himself and will need inpatient rehab. He denies any changes in his knee pain, wound/incision changes, fevers, redness or warmth to surgical site. His pain is still intact and was supposed to be removed today or tomorrow by his orthopedist. In addition to his osteoarthritis history is a past medical history significant for A. fib on Xarelto, hyperlipidemia, hypertension and sleep apnea. - Related Data Home Medications Medication Instructions Recorded Confirmed Aspirin EC [Ecotrin Low Dose] 81 mg PO DAILY 07/19/21 03/28/23 Citalopram Hydrobromide [CeleXA] 20 mg PO DAILY 07/19/21 03/28/23 Multivitamins, Thera [Multivitamin 1 tab PO DAILY 07/19/21 03/28/23 (formulary)] SUMAtriptan succinate [Imitrex] 100 mg PO BID PRN 07/19/21 03/28/23 Simvastatin [Zocor] 40 mg PO HS 07/19/21 03/28/23 buPROPion [Wellbutrin] 75 mg PO TID 07/19/21 03/28/23 Acetaminophen Tab [Tylenol] 500 - 1,000 mg PO Q8H PRN 11/15/22 03/28/23 Cholecalciferol [Vitamin D3 (25 100 mcg PO DAILY 11/15/22 03/28/23 Mcg = 1000 Iu)] lisinopriL [Zestril] 10 mg PO DAILY 11/15/22 03/28/23 Rivaroxaban [Xarelto] 20 mg PO DAILY 03/20/23 03/28/23 Previous Rx's Medication Instructions Recorded Metoprolol Tartrate [Lopressor] 12.5 mg PO BID #60 tab 11/17/22 Nitroglycerin Sl Tabs [Nitrostat] 0.4 mg SUBLINGUAL Q5M PRN #15 tab 11/17/22 Cyclobenzaprine [Flexeril] 10 mg PO HS #20 tab 03/27/23 HYDROcodone/APAP 10-325MG [[place] 1 tab PO Q6HR PRN #42 tab 03/27/23 10-325] Allergies Allergy/AdvReac Type Severity Reaction Status Date / Time No Known Allergies Allergy Verified 03/28/23 15:50 Review of Systems ROS Statement: Those systems with pertinent positive or pertinent negative responses have been documented in the HPI. ROS Other: All systems not noted in ROS Statement are negative. Past Medical History Past Medical History: Atrial Fibrillation, Hyperlipidemia, Hypertension, Osteoarthritis (OA), Sleep Apnea/CPAP/BIPAP Additional Past Medical History / Comment(s): migraines, History of Any Multi-Drug Resistant Organisms: None Reported Past Surgical History: Joint Replacement, Tonsillectomy Additional Past Surgical History / Comment(s): SINUS SURGERY, colonoscopy, rt hip replacement Past Anesthesia/Blood Transfusion Reactions: No Reported Reaction, Unable to Obtain Additional Past Anesthesia/Blood Transfusion Reaction / Comment(s): UNKNOWN FAMILY HX, ADOPTED. Past Psychological History: Depression Smoking Status: Former smoker - Past Family History Father Family Medical History: Unable to Obtain Mother Family Medical History: Unable to Obtain General Exam Limitations: physical limitation General appearance: alert, in no apparent distress, obese Head exam: Present: atraumatic, normocephalic, normal inspection Eye exam: Present: normal appearance, PERRL, EOMI. Absent: scleral icterus, conjunctival injection, periorbital swelling ENT exam: Present: normal exam, mucous membranes moist Neck exam: Present: normal inspection, full ROM Respiratory exam: Absent: respiratory distress, accessory muscle use Cardiovascular Exam: Present: regular rate GI/Abdominal exam: Present: soft. Absent: distended, tenderness, guarding, rebound, rigid Right Knee exam: Present: tenderness, effusion (mild). Absent: full ROM (limited by pain), abrasion, laceration, ecchymosis, deformity, crepitus, dislocation, erythema Neurovascular tendon exam: Present: no vascular compromise Gait: not tested/not observed Back exam: Present: normal inspection Neurological exam: Present: alert, oriented X3, CN II-XII intact Psychiatric exam: Present: normal affect, normal mood Skin exam: Present: other (Right knee incision with surgical tape intact well approximated without any drainage, redness or warmth.) Course Vital Signs 03/28/23 03/28/23 13:54 15:48 Temperature 98.2 F 98.5 F Pulse Rate 83 81 Respiratory 19 18 Rate Blood Pressure 131/83 116/68 O2 Sat by Pulse 95 100 Oximetry Medical Decision Making - Medical Decision Making Was pt. sent in by a medical professional or institution (, PA, NAPHTHALENE OPERATOR, urgent care, hospital, or longterm...) When possible be specific @ -No Did you speak to anyone other than the patient for history (EMS, parent, family, police, friend...)? What history was obtained from this source @ -No Did you review nursing and triage notes (agree or disagree)? Why? @ -I reviewed and agree with nursing and triage note Were old charts reviewed (outside hosp., previous admission, EMS record, old EKG, old radiological studies, urgent care reports/EKG's, longterm records)? Report findings @ -Yes, I reviewed operative note from right knee surgery on file completed 03/25/23 Differential Diagnosis (chest pain, altered mental status, abdominal pain women, abdominal pain men, vaginal bleeding, weakness, fever, dyspnea, syncope, headache, dizziness, GI bleed, back pain, seizure, CVA, palpatations, mental health, musculoskeletal)? @ -Differential Musculoskeletal Muscular strain, contusion, ligament sprain, fracture, arthritis, septic arthritis, bursitis, cellulitis, muscle spasm, nerve compression, DVT, arterial occlusion, herpes zoster, electrolyte abnormality, tumor.... This is not meant to be in all inclusive list EKG interpreted by me (3pts min.). @ -None done X-rays interpreted by me (1pt min.). @- None done CT interpreted by me (1pt min.). @ -None done U/S interpreted by me (1pt. min.). @ -None done What testing was considered but not performed or refused? (CT, X-rays, U/S, labs)? Why? @ -Imaging of the right knee considered but deferred due to no changes in pain no drainage or evidence of infection. What meds were considered but not given or refused? Why? @ -None Did you discuss the management of the patient with other professionals (professionals i.e. , PRINCESS, NAPHTHALENE OPERATOR, lab, RT, psych nurse, social welfare clerk, security systems sales representative, teacher, chief commercial officer, case folder)? Give summary @ -No Was smoking cessation discussed for >3mins.? @ -No Was critical care preformed (if so, how long)? @ -No Were there social determinants of health that impacted care today? How? (Homelessness, low income, unemployed, alcoholism, drug addiction, transportation, low edu. Level, literacy, decrease access to med. care, correction, rehab)? @ -No Was there de-escalation of care discussed even if they declined (Discuss DNR or withdrawal of care, Hospice)? DNR status @ -No What co-morbidities impacted this encounter? (DM, HTN, Smoking, COPD, CAD, Cancer, CVA, ARF, Chemo, Hep., AIDS, mental health diagnosis, sleep apnea, morbid obesity)? @ -None Was patient admitted / discharged? Hospital course, mention meds given and route , prescriptions, significant lab abnormalities, going to OR and other pertinent info. @ -Patient return to the hospital for inability to care for himself status post right total knee surgery. No changes in pain intensity or evidence of wound infection. Case discussed with case management; patient has Medicare with observation only stayed during surgery. During the stay he was advised for inpatient rehab but due to cost he deferred at home. At this time he feels that he must go to inpatient rehab. Due to his insurance he is required to have a 3 day stay in the hospital prior to being able to transfer to rehab. This information was discussed with patient. Baseline labs of CBC and CMP obtained for admission. Laboratory studies reveal anemia with a hemoglobin of 10.0, eleva clayton neutrophils at 8.1 with a normal WBC. Sodium level low at 133 BUN elevated at 21 with a normal creatinine random glucose 109 liver enzymes and alkaline phosphatase normal along with remaining electrolytes. No indication for any further workup at this time. No indication for any diagnostic imaging or medication administration at this time. Spoke with Dr. Abdullahi regarding patient presentation and need for admission with a 3 day stay to be transferred to rehab facility. He is accepting of admission will placed orthopedist on consult along with PT OT. Will admit patient in stable condition to medical surgical unit under sound physicians for further evaluation and treatment and ultimate transfer to inpatient rehab for right knee pain. Undiagnosed new problem with uncertain prognosis? @ -No Drug Therapy requiring intensive monitoring for toxicity (Heparin, Nitro, Insulin, Cardizem)? @ -No Were any procedures done? @ -No Diagnosis/symptom? @ -Right knee pain Acute, or Chronic, or Acute on Chronic? @ -Acute Uncomplicated (without systemic symptoms) or Complicated (systemic symptoms)? @ -Complicated Side effects of treatment? @ -No Exacerbation, Progression, or Severe Exacerbation? @ -No Poses a threat to life or bodily function? How? (Chest pain, USA, NH, pneumonia, PE, COPD, DKA, ARF, appy, cholecystitis, CVA, Diverticulitis, Homicidal, Suicidal, threat to staff... and all critical care pts) @ -Yes, at risk for poor mobility and infection. Case discussed with Dr. Antoine. - Lab Data Result diagrams: 03/28/23 15:00 03/28/23 15:00 Lab Results 03/28/23 03/28/23 Range/Units 15:00 15:00 WBC 10.5 (3.8-10.6) k/uL RBC 3.34 L (4.30-5.90) m/uL Hgb 10.0 L (13.0-17.5) gm/dL Hct 29.6 L (39.0-53.0) % MCV 88.7 (80.0-100.0) fL MCH 29.9 (25.0-35.0) pg MCHC 33.7 (31.0-37.0) g/dL RDW 13.3 (11.5-15.5) % Plt Count 175 (150-450) k/uL MPV 8.3 Neutrophils % 78 % Lymphocytes % 11 % Monocytes % 7 % Eosinophils % 2 % Basophils % 0 % Neutrophils # 8.1 H (1.3-7.7) k/uL Lymphocytes # 1.2 (1.0-4.8) k/uL Monocytes # 0.7 (0-1.0) k/uL Eosinophils # 0.2 (0-0.7) k/uL Basophils # 0.0 (0-0.2) k/uL Sodium 133 L (137-145) mmol/L Potassium 4.5 (3.5-5.1) mmol/L Chloride 99 (98-107) mmol/L Carbon Dioxide 26 (22-30) mmol/L Anion Gap 8 mmol/L BUN 28 H (9-20) mg/dL Creatinine 1.03 (0.66-1.25) mg/dL Est GFR (CKD-EPI)AfAm 82 (>60 ml/min/1.73 sqM) Est GFR (CKD-EPI)NonAf 71 (>60 ml/min/1.73 sqM) Glucose 109 H (74-99) mg/dL Calcium 8.5 (8.4-10.2) mg/dL Total Bilirubin 0.9 (0.2-1.3) mg/dL AST 44 (17-59) U/L ALT 19 (4-49) U/L Alkaline Phosphatase 50 (38-126) U/L Total Protein 5.9 L (6.3-8.2) g/dL Albumin 3.4 L (3.5-5.0) g/dL Disposition Clinical Impression: Right knee pain Disposition: ADMITTED IP TO THIS HOSP Condition: Stable Is patient prescribed a controlled substance at d/c from ED?: No Referrals: [facility],Clinic [Primary Care Provider] - 1-2 days Time of Disposition: 15:22
[2023-03-28] MEDS ORDERED: ACETAMINOPHEN TAB 325 MG TAB PO PRN (15:19)
[2023-03-28] MEDS ORDERED: ONDANSETRON 4 MG/2 ML VIAL IVP PRN (15:19)
[2023-03-28] MEDS ORDERED: NALOXONE 0.4 MG/ML 1 ML VIAL IV PRN (15:19)
[2023-03-28] MEDS ORDERED: CALCIUM CARBONATE 500 MG CHEWABLE PO PRN (15:19)
[2023-03-28] MEDS ORDERED: MELATONIN 3 MG TABLET PO PRN (15:19)
[2023-03-28 15:37] LABS: Basophils % (A) 0 %; Eosinophils # (A) 0.2 k/uL (0-0.7); Eosinophils % (A) 2 %; HCT 29.6 % (39.0-53.0); Lymphocytes # (A) 1.2 k/uL (1.0-4.8); Lymphocytes % (A) 11 %; MCH 29.9 pg (25.0-35.0); MCHC 33.7 g/dL (31.0-37.0); MCV 88.7 fL (80.0-100.0); Mean Platelet Volume 8.3; Monocytes # (A) 0.7 k/uL (0-1.0); Monocytes % (A) 7 %; Neutrophils # (A) 8.1 k/uL (1.3-7.7); Neutrophils % (A) 78 %; Platelet Count 175 k/uL (150-450); RBC 3.34 m/uL (4.30-5.90); RDW 13.3 % (11.5-15.5); WBC 10.5 k/uL (3.8-10.6)
[2023-03-28 15:42] LABS: ALT 19 U/L (4-49); AST 44 U/L (17-59); African American GFR (CKD) 82 (>60 ml/min/1.73 sqM); Albumin 3.4 g/dL (3.5-5.0); Alkaline Phosphatase 50 U/L (38-126); Anion Gap 8 mmol/L; Blood Urea Nitrogen 28 mg/dL (9-20); Calcium 8.5 mg/dL (8.4-10.2); Carbon Dioxide 26 mmol/L (22-30); Chloride 99 mmol/L (98-107); Glucose 109 mg/dL (74-99); Non-African American GFR(CKD) 71 (>60 ml/min/1.73 sqM); Potassium 4.5 mmol/L (3.5-5.1); Sodium 133 mmol/L (137-145); Total Bilirubin 0.9 mg/dL (0.2-1.3); Total Protein 5.9 g/dL (6.3-8.2)
--- NOTE | 2023-03-28 15:56 | P.HPIM ---
History of Present Illness H&P Date: 03/28/23 Patient is a very pleasant 77-year-old male with a past medical history of hypertension, hyperlipidemia, atrial fibrillation on anticoagulation with Xarelto, obstructive sleep apnea CPAP dependent nightly, and osteoarthrosis. Patient recently underwent elective right total knee arthroplasty secondary to severe tricompartmental osteoarthrosis on 03/25. He was discharged home. Patient reports pain that was unbearable which prevented him from doing his ADLS and IADLS. This prompted him to come back to the ED. He reports no other complaints today. In the ED, his vital signs were stable. CBC showed Hg 10. BMP showed Na 133, BUN 28, glucose 109, albumin 3.4. Patient is admitted for intractable pain. Vital signs reviewed and stable. General: Nontoxic, no distress and appears stated age. Derm: Skin warm and dry, normal coloration for ethnicity. Head: Atraumatic, normocephalic and symmetric. Eyes: EOMs intact, no lid lag, and anicteric sclera Cardiovascular: regular rate and rhythm with normal S1S2, no murmur Lungs: Respirations even, regular, and unlabored on room air. Lungs CTA bilat erally, no rhonchi, no rales, no wheezing, and no accessory muscle usage. Ext: No gross muscle atrophy, no edema, no contractures. Movement and sensation intact. Post-surgical dressing and Dani wrap in place. Neuro: Speech clear, face symmetrical Psych: Alert and oriented to person, place, time, and situation. Appropriate and pleasant affect. Assessment and Plan of Care: Acute postoperative blood loss anemia, expected finding Status post right total knee arthroplasty on 03/25 Tricompartmental osteoarthrosis -Pain control: [place] 10 Q6H scheduled with Dilaudid 1mg IV Q4H PRN for pain -Patient currently on DVT prophylaxis with Xarelto. Paroxysmal Atrial fibrillation -Patient to continue with anticoagulation with Xarelto 20 mg daily -Continue Metoprolol 12.5 mg PO BID Hypertension -Vital signs reviewed and stable. Blood pressure 116/68, heart rate 81, respiratory rate 18, temp 98.5F, SpO2 100% on room air. -Patient to continue daily medication regimen with lisinopril 10 mg daily and metoprolol 12.5 mg twice daily. Hyperlipidemia -Patient to continue with aspirin 81 mg daily and atorvastatin 20 mg nightly. Obstructive sleep apnea -Continue home CPAP nightly. Past Medical History Past Medical History: Atrial Fibrillation, Hyperlipidemia, Hypertension, Osteoarthritis (OA), Sleep Apnea/CPAP/BIPAP Additional Past Medical History / Comment(s): migraines, History of Any Multi-Drug Resistant Organisms: None Reported Past Surgical History: Joint Replacement, Tonsillectomy Additional Past Surgical History / Comment(s): SINUS SURGERY, colonoscopy, rt hip replacement Past Anesthesia/Blood Transfusion Reactions: No Reported Reaction, Unable to Obtain Additional Past Anesthesia/Blood Transfusion Reaction / Comment(s): UNKNOWN FAMILY HX, ADOPTED. Past Psychological History: Depression Smoking Status: Former smoker - Past Family History Father Family Medical History: Unable to Obtain Mother Family Medical History: Unable to Obtain Medications and Allergies Home Medications Medication Instructions Recorded Confirmed Type Aspirin EC [Ecotrin Low Dose] 81 mg PO DAILY 07/19/21 03/28/23 History Citalopram Hydrobromide [CeleXA] 20 mg PO DAILY 07/19/21 03/28/23 History Multivitamins, Thera [Multivitamin 1 tab PO DAILY 07/19/21 03/28/23 History (formulary)] SUMAtriptan succinate [Imitrex] 100 mg PO BID PRN 07/19/21 03/28/23 History Simvastatin [Zocor] 40 mg PO HS 07/19/21 03/28/23 History buPROPion [Wellbutrin] 75 mg PO TID 07/19/21 03/28/23 History Acetaminophen Tab [Tylenol] 500 - 1,000 mg PO Q8H PRN 11/15/22 03/28/23 History Cholecalciferol [Vitamin D3 (25 100 mcg PO DAILY 11/15/22 03/28/23 History Mcg = 1000 Iu)] lisinopriL [Zestril] 10 mg PO DAILY 11/15/22 03/28/23 History Metoprolol Tartrate [Lopressor] 12.5 mg PO BID #60 tab 11/17/22 03/28/23 Rx Nitroglycerin Sl Tabs [Nitrostat] 0.4 mg SUBLINGUAL Q5M PRN #15 tab 11/17/22 03/28/23 Rx Rivaroxaban [Xarelto] 20 mg PO DAILY 03/20/23 03/28/23 History Cyclobenzaprine [Flexeril] 10 mg PO HS #20 tab 03/27/23 03/28/23 Rx HYDROcodone/APAP 10-325MG [[place] 1 tab PO Q6HR PRN #42 tab 03/27/23 03/28/23 Rx 10-325] Allergies Allergy/AdvReac Type Severity Reaction Status Date / Time No Known Allergies Allergy Verified 03/28/23 15:50 Physical Exam Vitals: Vital Signs Temp Pulse Resp BP Pulse Ox 03/28/23 15:48 98.5 F 81 18 116/68 100 03/28/23 13:54 98.2 F 83 19 131/83 95 Intake and Output 03/28/23 03/28/23 03/28/23 06:59 14:59 22:59 Other: Weight 156.489 kg Results CBC & Chem 7: 03/28/23 15:00 03/28/23 15:00 Labs: Abnormal Lab Results - Last 24 Hours (Table) 03/28/23 03/28/23 Range/Units 15:00 15:00 RBC 3.34 L (4.30-5.90) m/uL Hgb 10.0 L (13.0-17.5) gm/dL Hct 29.6 L (39.0-53.0) % Neutrophils # 8.1 H (1.3-7.7) k/uL Sodium 133 L (137-145) mmol/L BUN 28 H (9-20) mg/dL Glucose 109 H (74-99) mg/dL Total Protein 5.9 L (6.3-8.2) g/dL Albumin 3.4 L (3.5-5.0) g/dL
[2023-03-28] MEDS: HYDROcodone/APAP 10-325MG 1 EACH TAB PO SCH ×3 (16:37→21:14)
[2023-03-28] MEDS: buPROPion 75 MG TAB PO SCH ×2 (17:09→21:25)
[2023-03-28] MEDS: HYDROmorphone 1 MG/ML 1 ML SYRINGE IVP PRN (18:12)
[2023-03-28] MEDS: ATORVASTATIN 40 MG TAB PO SCH (21:14)
[2023-03-28] MEDS: METOPROLOL TARTRATE 12.5 MG TAB PO SCH (21:14)
[2023-03-29] MEDS: HYDROcodone/APAP 10-325MG 1 EACH TAB PO SCH ×4 (03:21→22:57)
[2023-03-29] MEDS: lisinopriL 10 MG TAB PO SCH (08:43)
[2023-03-29] MEDS: METOPROLOL TARTRATE 12.5 MG TAB PO SCH ×2 (08:43→22:57)
[2023-03-29] MEDS: ASPIRIN 81 MG PO SCH (08:43)
[2023-03-29] MEDS: CHOLECALCIFEROL 25 MCG (1000 IU) TABLET PO SCH (08:43)
[2023-03-29] MEDS: CITALOPRAM HYDROBROMIDE 20 MG TAB PO SCH (08:43)
[2023-03-29] MEDS: buPROPion 75 MG TAB PO SCH ×2 (08:44→17:23)
--- NOTE | 2023-03-29 10:19 | P.PN ---
Subjective Progress Note Date: 03/29/23 Patient is a very pleasant 77-year-old male with a past medical history of hypertension, hyperlipidemia, atrial fibrillation on anticoagulation with Xarelto, obstructive sleep apnea CPAP dependent nightly, and osteoarthrosis. Patient recently underwent elective right total knee arthroplasty secondary to sandra evans tricompartmental osteoarthrosis on 03/25. He was discharged home. Patient reports pain that was unbearable which prevented him from doing his ADLS and IADLS. This prompted him to come back to the ED. He reports no other complaints today. In the ED, his vital signs were stable. CBC showed Hg 10. BMP showed Na 133, BUN 28, glucose 109, albumin 3.4. Patient is admitted for intractable pain. 03/29 Patient was seen and examined. No acute events overnight. He reports well controlled pain in his right knee. Has not gotten out of bed. PT eval pending. Vital signs reviewed and stable. General: Nontoxic, no distress and appears stated age. Derm: Skin warm and dry, normal coloration for ethnicity. Head: Atraumatic, normocephalic and symmetric. Eyes: EOMs intact, no lid lag, and anicteric sclera Cardiovascular: regular rate and rhythm with normal S1S2, no murmur Lungs: Respirations even, regular, and unlabored on room air. Lungs CTA bilaterally, no rhonchi, no rales, no wheezing, and no accessory muscle usage. Ext: No gross muscle atrophy, no edema, no contractures. Movement and sensation intact. Post-surgical dressing and Dani wrap in place. Neuro: Speech clear, face symmetrical Psych: Alert and oriented to person, place, time, and situation. Appropriate and pleasant affect. Assessment and Plan of Care: Acute postoperative blood loss anemia, expected finding Status post right total knee arthroplasty on 03/25 Tricompartmental osteoarthrosis -Pain control: Steward 10 Q6H scheduled with Dilaudid 1mg IV Q4H PRN for pain -Patient currently on DVT prophylaxis with Xarelto. Paroxysmal Atrial fibrillation -Patient to continue with anticoagulation with Xarelto 20 mg daily -Continue Metoprolol 12.5 mg PO BID Hypertension -Vital signs reviewed and stable. Blood pressure 106/64, heart rate 77, respiratory rate 16, temp 98.5F, SpO2 92% on room air. -Patient to continue daily medication regimen with lisinopril 10 mg daily and metoprolol 12.5 mg twice daily. Hyperlipidemia -Patient to continue with aspirin 81 mg daily and atorvastatin 20 mg nightly. Obstructive sleep apnea -Continue home CPAP nightly. Objective - Vital Signs Vital signs: Vital Signs Temp 98.5 F 03/29/23 07:23 Pulse 77 03/29/23 07:23 Resp 16 03/29/23 07:23 BP 106/64 03/29/23 07:23 Pulse Ox 92 L 03/29/23 07:23 FiO2 Intake & Output 03/28/23 03/29/23 03/29/23 18:59 06:59 18:59 Output Total 1000 Balance -1000 Weight 156.489 kg 156.489 kg Output: Urine 1000 Other: Voiding Method Urinal Urinal - Labs CBC & Chem 7: 03/28/23 15:00 03/28/23 15:00 Labs: Abnormal Lab Results - Last 24 Hours (Table) 03/28/23 03/28/23 Range/Units 15:00 15:00 RBC 3.34 L (4.30-5.90) m/uL Hgb 10.0 L (13.0-17.5) gm/dL Hct 29.6 L (39.0-53.0) % Neutrophils # 8.1 H (1.3-7.7) k/uL Sodium 133 L (137-145) mmol/L BUN 28 H (9-20) mg/dL Glucose 109 H (74-99) mg/dL Total Protein 5.9 L (6.3-8.2) g/dL Albumin 3.4 L (3.5-5.0) g/dL
[2023-03-29] MEDS: RIVAROXABAN 20 MG TAB PO SCH (10:49)
--- NOTE | 2023-03-29 11:47 | P.CNOR ---
History of Present Illness - HPI Consult date: 03/29/23 Consult reason: joint pain History of present illness: 77 yo male had Right TKA done with Dr. Jimenez on 03/25/23. He did well after and went home. He states he had to walk a lot at home and was unable to get up by himself. He also c/o severe pain in knee when he was up and he was unable to care for himself to he came back to ED. He states no other issues. No f/c/sob/cp. No drainage from knee. Denies any numbness/tingling. Review of Systems 14 points review of systems completed and as stated in HPI, all other systems reviewed are negative. Past Medical History Past Medical History: Atrial Fibrillation, Hyperlipidemia, Hypertension, Osteoarthritis (OA), Sleep Apnea/CPAP/BIPAP Additional Past Medical History / Comment(s): migraines, History of Any Multi-Drug Resistant Organisms: None Reported Past Surgical History: Joint Replacement, Tonsillectomy Additional Past Surgical History / Comment(s): SINUS SURGERY, colonoscopy, rt hip replacement Past Anesthesia/Blood Transfusion Reactions: No Reported Reaction, Unable to Obtain Additional Past Anesthesia/Blood Transfusion Reaction / Comm: UNKNOWN FAMILY HX, ADOPTED. Past Psychological History: Depression Smoking Status: Former smoker Past Alcohol Use History: Rare Additional Past Alcohol Use History / Comment(s): SMOKED 6-7 YEARS, 1 PPD EST, QUIT 1977 Past Drug Use History: None Reported - Past Family History Father Family Medical History: Unable to Obtain Mother Family Medical History: Unable to Obtain Medications and Allergies Home Medications Medication Instructions Recorded Confirmed Type Aspirin EC [Ecotrin Low Dose] 81 mg PO DAILY 07/19/21 03/28/23 History Citalopram Hydrobromide [CeleXA] 20 mg PO DAILY 07/19/21 03/28/23 History Multivitamins, Thera [Multivitamin 1 tab PO DAILY 07/19/21 03/28/23 History (formulary)] SUMAtriptan succinate [Imitrex] 100 mg PO BID PRN 07/19/21 03/28/23 History Simvastatin [Zocor] 40 mg PO HS 07/19/21 03/28/23 History buPROPion [Wellbutrin] 75 mg PO TID 07/19/21 03/28/23 History Acetaminophen Tab [Tylenol] 500 - 1,000 mg PO Q8H PRN 11/15/22 03/28/23 History Cholecalciferol [Vitamin D3 (25 100 mcg PO DAILY 11/15/22 03/28/23 History Mcg = 1000 Iu)] lisinopriL [Zestril] 10 mg PO DAILY 11/15/22 03/28/23 History Metoprolol Tartrate [Lopressor] 12.5 mg PO BID #60 tab 11/17/22 03/28/23 Rx Nitroglycerin Sl Tabs [Nitrostat] 0.4 mg SUBLINGUAL Q5M PRN #15 tab 11/17/22 03/28/23 Rx Rivaroxaban [Xarelto] 20 mg PO DAILY 03/20/23 03/28/23 History Cyclobenzaprine [Flexeril] 10 mg PO HS #20 tab 03/27/23 03/28/23 Rx HYDROcodone/APAP 10-325MG [[place] 1 tab PO Q6HR PRN #42 tab 03/27/23 03/28/23 Rx 10-325] Allergies Allergy/AdvReac Type Severity Reaction Status Date / Time No Known Allergies Allergy Verified 03/28/23 15:50 Physical Examination Osteopathic Statement: *. No significant issues noted on an osteopathic structural exam other than those noted in the History and Physical/Consult. Physical Exam: -Patient is alert and oriented 3 appears well-nourished well-hydrated is in no acute distress. They do not appear septic. -There is TTP about the right knee and distally along the calf on the medial side [-Incision is CDI, no EEE, no drainage] -Upper extremities show [5] out of 5 strength in all major muscle groups. [##EXCEPT] -Lower extremities with [5] out of 5 strength in all major muscle groups except right knee flexion and extension due to pain and total knee replacement -There is [FROM] that is [painless] of the b/l UE and LE in all major joints. negative logroll bilaterally -They are intact to light touch sensation in C5 to T1 and L2 to S1 nerve distribution. -DTR [2]/4 all upper and lower extremities -Patient has palpable distal pulses all 4 ext -Compartments are soft and compressible. -Patient shows a negative Edna's Cranial nerves II through XII are grossly intact. Results Reviewed - Labs Labs: Abnormal Lab Results - Last 24 Hours (Table) 03/28/23 03/28/23 Range/Units 15:00 15:00 RBC 3.34 L (4.30-5.90) m/uL Hgb 10.0 L (13.0-17.5) gm/dL Hct 29.6 L (39.0-53.0) % Neutrophils # 8.1 H (1.3-7.7) k/uL Sodium 133 L (137-145) mmol/L BUN 28 H (9-20) mg/dL Glucose 109 H (74-99) mg/dL Total Protein 5.9 L (6.3-8.2) g/dL Albumin 3.4 L (3.5-5.0) g/dL H & H 03/28/23 Range/Units 15:00 Hgb 10.0 L (13.0-17.5) gm/dL Hct 29.6 L (39.0-53.0) % Result Diagrams: 03/28/23 15:00 03/28/23 15:00 Assessment and Plan Assessment: 77-year-old male status post right total knee replacement with increased pain and difficulty with ADLs seeking placement Plan: - x-ray right knee and ordered - weightbearing as tolerated with assist - PT OT daily - GI DVT prophylaxis - pain control - case management for placement in subacute rehab - Ortho stable pending x-rays
[2023-03-29] MEDS: ATORVASTATIN 40 MG TAB PO SCH (22:57)
--- NOTE | 2023-03-29 23:32 | XR ---
EXAMINATION TYPE: XR knee limited RT DATE OF EXAM: 03/29/2023 COMPARISON: 03/25/2023 HISTORY: Postop pain TECHNIQUE: 2 view right knee FINDINGS: Tibial and femoral components remain in place. Some postsurgical changes remain within the distal knee. There may be increased or more focal. Infection should be considered No acute fractures are evident. IMPRESSION: 1. No acute fractures post knee replacement. 2. Subcutaneous air overlying the left knee. This could be postsurgical in nature. This is a change f rom the prior examination. Consider additional workup for infection.
[2023-03-30] MEDS: HYDROcodone/APAP 10-325MG 1 EACH TAB PO SCH ×3 (03:55→17:10)
[2023-03-30] MEDS: buPROPion 75 MG TAB PO SCH ×4 (05:26→21:08)
[2023-03-30] MEDS: CHOLECALCIFEROL 25 MCG (1000 IU) TABLET PO SCH (09:05)
[2023-03-30] MEDS: ASPIRIN 81 MG PO SCH (09:06)
[2023-03-30] MEDS: METOPROLOL TARTRATE 12.5 MG TAB PO SCH ×2 (09:06→21:08)
[2023-03-30] MEDS: CITALOPRAM HYDROBROMIDE 20 MG TAB PO SCH (09:06)
[2023-03-30] MEDS: lisinopriL 10 MG TAB PO SCH (09:06)
[2023-03-30] MEDS: RIVAROXABAN 20 MG TAB PO SCH (09:07)
--- NOTE | 2023-03-30 11:47 | P.PN ---
Subjective Progress Note Date: 03/30/23 Patient is a very pleasant 77-year-old male with a past medical history of hypertension, hyperlipidemia, atrial fibrillation on anticoagulation with Xarelto, obstructive sleep apnea CPAP dependent nightly, and osteoarthrosis. Patient recently underwent elective right total knee arthroplasty secondary to sandra evans tricompartmental osteoarthrosis on 03/25. He was discharged home. Patient reports pain that was unbearable which prevented him from doing his ADLS and IADLS. This prompted him to come back to the ED. He reports no other complaints today. In the ED, his vital signs were stable. CBC showed Hg 10. BMP showed Na 133, BUN 28, glucose 109, albumin 3.4. Patient is admitted for intractable pain. 03/29 Patient was seen and examined. No acute events overnight. He reports well controlled pain in his right knee. Has not gotten out of bed. PT eval pending. 03/30 Patient was seen and examined. No acute events overnight. He reports right knee pain with ambulation. Knee XR shows subcutaneous air which could be post surgical. Vital signs reviewed and stable. General: Nontoxic, no distress and appears stated age. Derm: Skin warm and dry, normal coloration for ethnicity. Head: Atraumatic, normocephalic and symmetric. Eyes: EOMs intact, no lid lag, and anicteric sclera Cardiovascular: good distal perfusion in all 4 extremities Lungs: Respirations even, regular, and unlabored on room air. No accessory muscle usage. Ext: No gross muscle atrophy, no edema, no contractures. Movement and sensation intact. Post-surgical dressing and Dani wrap in place. Neuro: Speech clear, face symmetrical Psych: Alert and oriented to person, place, time, and situation. Appropriate and pleasant affect. Assessment and Plan of Care: Acute postoperative blood loss anemia, expected finding Status post right total knee arthroplasty on 03/25 Tricompartmental osteoarthrosis -Pain control: [place]hin 10 Q6H scheduled with Dilaudid 1mg IV Q4H PRN for pain -Patient currently on DVT prophylaxis with Xarelto. Paroxysmal Atrial fibrillation -Patient to continue with anticoagulation with Xarelto 20 mg daily -Continue Metoprolol 12.5 mg PO BID Hypertension -Vital signs reviewed and stable. Blood pressure 130/78, heart rate 78, respiratory rate 17, temp 98.2F, SpO2 95% on room air. -Patient to continue daily medication regimen with lisinopril 10 mg daily and metoprolol 12.5 mg twice daily. Hyperlipidemia -Patient to continue with aspirin 81 mg daily and atorvastatin 20 mg nightly. Obstructive sleep apnea -Continue home CPAP nightly. Objective - Vital Signs Vital signs: Vital Signs Temp 98.2 F 03/30/23 07:29 Pulse 78 03/30/23 07:29 Resp 17 03/30/23 07:29 BP 130/78 03/30/23 07:29 Pulse Ox 97 03/30/23 07:46 FiO2 21 03/30/23 00:44 Intake & Output 03/29/23 03/30/23 03/30/23 18:59 06:59 18:59 Intake Total 1000 Balance 1000 Intake: Oral 1000 Other: Voiding Method Urinal Urinal Urinal # Voids 1 # Bowel Movements 1 - Labs CBC & Chem 7: 03/28/23 15:00 03/28/23 15:00
[2023-03-30] MEDS: HYDROmorphone 1 MG/ML 1 ML SYRINGE IVP PRN ×2 (13:10→19:39)
[2023-03-30] MEDS: ATORVASTATIN 40 MG TAB PO SCH (21:07)
[2023-03-31] MEDS: HYDROcodone/APAP 10-325MG 1 EACH TAB PO SCH ×4 (00:39→15:52)
[2023-03-31] MEDS: HYDROmorphone 1 MG/ML 1 ML SYRINGE IVP PRN (01:57)
--- NOTE | 2023-03-31 07:37 | P.PN ---
Subjective Progress Note Date: 03/30/23 Pt s/e no issues overnight. Was up with PT minimally yesterday. Has not been up today. Denies any f/c/sob/cp. Objective - Vital Signs Vital signs: Vital Signs Temp 98.2 F 03/30/23 07:29 Pulse 78 03/30/23 07:29 Resp 17 03/30/23 07:29 BP 130/78 03/30/23 07:29 Pulse Ox 97 03/30/23 07:46 FiO2 21 03/30/23 00:44 Intake & Output 03/29/23 03/30/23 03/30/23 18:59 06:59 18:59 Intake Total 1000 Balance 1000 Intake: Oral 1000 Other: Voiding Method Urinal Urinal # Voids 1 # Bowel Movements 1 - Exam Stable. NV intact distally Dressing and incision CDI. - Labs CBC & Chem 7: 03/28/23 15:00 03/28/23 15:00 Assessment and Plan Assessment: 77-year-old male status post right total knee replacement with increased pain and difficulty with ADLs seeking placement Plan: - x-ray right knee and ordered - weightbearing as tolerated with assist - PT OT daily - GI DVT prophylaxis - pain control - case management for placement in subacute rehab -Xray neg for fx. Implant stable. - Ortho stable
[2023-03-31] MEDS: ASPIRIN 81 MG PO SCH (07:45)
[2023-03-31] MEDS: buPROPion 75 MG TAB PO SCH ×2 (07:45→15:52)
[2023-03-31] MEDS: METOPROLOL TARTRATE 12.5 MG TAB PO SCH (07:45)
[2023-03-31] MEDS: CHOLECALCIFEROL 25 MCG (1000 IU) TABLET PO SCH (07:45)
[2023-03-31] MEDS: lisinopriL 10 MG TAB PO SCH (07:45)
[2023-03-31] MEDS: CITALOPRAM HYDROBROMIDE 20 MG TAB PO SCH (07:45)
[2023-03-31] MEDS: RIVAROXABAN 20 MG TAB PO SCH (07:46)
[2023-03-31 09:46] VITALS: RESP 19
--- NOTE | 2023-03-31 12:53 | P.PN ---
Subjective Progress Note Date: 03/31/23 Patient is a very pleasant 77-year-old male with a past medical history of hypertension, hyperlipidemia, atrial fibrillation on anticoagulation with Xarelto, obstructive sleep apnea CPAP dependent nightly, and osteoarthrosis. Patient recently underwent elective right total knee arthroplasty secondary to sandra evans tricompartmental osteoarthrosis on 03/25. He was discharged home. Patient reports pain that was unbearable which prevented him from doing his ADLS and IADLS. This prompted him to come back to the ED. He reports no other complaints today. In the ED, his vital signs were stable. CBC showed Hg 10. BMP showed Na 133, BUN 28, glucose 109, albumin 3.4. Patient is admitted for intractable pain. 03/29 Patient was seen and examined. No acute events overnight. He reports well controlled pain in his right knee. Has not gotten out of bed. PT eval pending. 03/30 Patient was seen and examined. No acute events overnight. He reports right knee pain with ambulation. Knee XR shows subcutaneous air which could be post surgical. 03/31 Patient was seen and examined. He is pending PT evaluation. He reports st able right knee pain. Vital signs reviewed and stable. General: Nontoxic, no distress and appears stated age. Derm: Skin warm and dry, normal coloration for ethnicity. Head: Atraumatic, normocephalic and symmetric. Eyes: EOMs intact, no lid lag, and anicteric sclera Cardiovascular: good distal perfusion in all 4 extremities Lungs: Respirations even, regular, and unlabored on room air. No accessory muscle usage. Ext: No gross muscle atrophy, no edema, no contractures. Movement and sensation intact. Post-surgical dressing and Dani wrap in place. Neuro: Speech clear, face symmetrical Psych: Alert and oriented to person, place, time, and situation. Appropriate and pleasant affect. Assessment and Plan of Care: Acute postoperative blood loss anemia, expected finding Status post right total knee arthroplasty on 03/25 Tricompartmental osteoarthrosis -Pain control: [place] 10 Q6H scheduled with Dilaudid 1mg IV Q4H PRN for pain -Patient currently on DVT prophylaxis with Xarelto. Paroxysmal Atrial fibrillation -Patient to continue with anticoagulation with Xarelto 20 mg daily -Continue Metoprolol 12.5 mg PO BID Hypertension -Vital signs reviewed and stable. Blood pressure 112/78, heart rate 77, respiratory rate 19, temp 98.2F, SpO2 95% on room air. -Patient to continue daily medication regimen with lisinopril 10 mg daily and metoprolol 12.5 mg twice daily. Hyperlipidemia -Patient to continue with aspirin 81 mg daily and atorvastatin 20 mg nightly. Obstructive sleep apnea -Continue home CPAP nightly. Objective - Vital Signs Vital signs: Vital Signs Temp 98.2 F 03/31/23 07:34 Pulse 77 03/31/23 07:34 Resp 19 03/31/23 07:34 BP 112/78 03/31/23 07:34 Pulse Ox 94 L 03/31/23 09:14 FiO2 21 03/30/23 00:44 Intake & Output 03/30/23 03/31/23 03/31/23 18:59 06:59 18:59 Intake Total 1200 Output Total 540 550 575 Balance 510 -930 -757 Intake: Oral 1200 Output: Urine 540 550 575 Other: Voiding Method Urinal Urinal Urinal - Labs CBC & Chem 7: 03/28/23 15:00 03/28/23 15:00
--- NOTE | 2023-03-31 13:46 | P.DS ---
Providers Date of admission: 03/28/23 15:19 Expected date of discharge: 03/31/23 Attending physician: Nuris Abdullahi MD Consults: 03/28/23 15:19 Consult Physician Stat Consulting Provider: Michael Jimenez Consult Reason/Comments: recent surgery Do you want consulting provider notified?: Yes Primary care physician: [facility] Course: Patient is a very pleasant 77-year-old male with a past medical history of hypertension, hyperlipidemia, atrial fibrillation on anticoagulation with Xarelto, obstructive sleep apnea CPAP dependent nightly, and osteoarthrosis. Irma cadena recently underwent elective right total knee arthroplasty secondary to severe tricompartmental osteoarthrosis on 03/25. He was discharged home. Patient reports pain that was unbearable which prevented him from doing his ADLS and IADLS. This prompted him to come back to the ED. He reports no other complaints today. In the ED, his vital signs were stable. CBC showed Hg 10. BMP showed Na 133, BUN 28, glucose 109, albumin 3.4. Patient is admitted for intractable pain. 03/29 Patient was seen and examined. No acute events overnight. He reports well controlled pain in his right knee. Has not gotten out of bed. PT eval pending. 03/30 Patient was seen and examined. No acute events overnight. He reports right knee pain with ambulation. Knee XR shows subcutaneous air which could be post surgical. 03/31 Patient was seen and examined. He reports stable right knee pain. Patient was [facility] and subsequently discharged. Pertinent studies as above. Vital signs reviewed and stable. General: Nontoxic, no distress and appears stated age. Derm: Skin warm and dry, normal coloration for ethnicity. Head: Atraumatic, normocephalic and symmetric. Eyes: EOMs intact, no lid lag, and anicteric sclera Cardiovascular: good distal perfusion in all 4 extremities Lungs: Respirations even, regular, and unlabored on room air. No accessory muscle usage. Ext: No gross muscle atrophy, no edema, no contractures. Movement and sensation intact. Post-surgical dressing and Dani wrap in place. Neuro: Speech clear, face symmetrical Psych: Alert and oriented to person, place, time, and situation. Appropriate and pleasant affect. Discharge Diagnosis: Acute postoperative blood loss anemia, expected finding Status post right total knee arthroplasty on 03/25 Tricompartmental osteoarthrosis Paroxysmal Atrial fibrillation Hypertension Hyperlipidemia Obstructive sleep apnea This complex discharge took 35 minutes to complete. Patient Condition at Discharge: Stable Plan - Discharge Summary Discharge Rx Participant: Yes New Discharge Prescriptions: New Acetaminophen Tab [Tylenol] 650 mg PO Q6HR PRN tab PRN Reason: Mild Pain Or Fever > 100.5 Continue buPROPion [Wellbutrin] 75 mg PO TID Multivitamins, Thera [Multivitamin (formulary)] 1 tab PO DAILY Aspirin EC [Ecotrin Low Dose] 81 mg PO DAILY Citalopram Hydrobromide [CeleXA] 20 mg PO DAILY SUMAtriptan succinate [Imitrex] 100 mg PO BID PRN PRN Reason: Migraine Headache Cholecalciferol [Vitamin D3 (25 Mcg = 1000 Iu)] 100 mcg PO DAILY lisinopriL [Zestril] 10 mg PO DAILY Metoprolol Tartrate [Lopressor] 12.5 mg PO BID #60 tab Nitroglycerin Sl Tabs [Nitrostat] 0.4 mg SUBLINGUAL Q5M PRN #15 tab PRN Reason: Chest Pain Rivaroxaban [Xarelto] 20 mg PO DAILY Simvastatin [Zocor] 40 mg PO HS Acetaminophen Tab [Tylenol] 500 - 1,000 mg PO Q8H PRN PRN Reason: Pain Or Fever > 100.5 Cyclobenzaprine [Flexeril] 10 mg PO HS #20 tab HYDROcodone/APAP 10-325MG [[place] 10-325] 1 tab PO Q6HR PRN #12 tab PRN Reason: Pain Discharge Medication List Aspirin EC [Ecotrin Low Dose] 81 mg PO DAILY 07/19/21 [History] Citalopram Hydrobromide [CeleXA] 20 mg PO DAILY 07/19/21 [History] Multivitamins, Thera [Multivitamin (formulary)] 1 tab PO DAILY 07/19/21 [History] SUMAtriptan succinate [Imitrex] 100 mg PO BID PRN 07/19/21 [History] Simvastatin [Zocor] 40 mg PO HS 07/19/21 [History] buPROPion [Wellbutrin] 75 mg PO TID 07/19/21 [History] Acetaminophen Tab [Tylenol] 500 - 1,000 mg PO Q8H PRN 11/15/22 [History] Cholecalciferol [Vitamin D3 (25 Mcg = 1000 Iu)] 100 mcg PO DAILY 11/15/22 [History] lisinopriL [Zestril] 10 mg PO DAILY 11/15/22 [History] Metoprolol Tartrate [Lopressor] 12.5 mg PO BID #60 tab 11/17/22 [Rx] Nitroglycerin Sl Tabs [Nitrostat] 0.4 mg SUBLINGUAL Q5M PRN #15 tab 11/17/22 [Rx] Rivaroxaban [Xarelto] 20 mg PO DAILY 03/20/23 [History] Cyclobenzaprine [Flexeril] 10 mg PO HS #20 tab 03/27/23 [Rx] Acetaminophen Tab [Tylenol] 650 mg PO Q6HR PRN tab 03/31/23 [Rx] HYDROcodone/APAP 10-325MG [[place] 10-325] 1 tab PO Q6HR PRN #12 tab 03/31/23 [Rx] Follow up Appointment(s)/Referral(s): Michael Jimenez MD [STAFF PHYSICIAN] - [address] [facility],Clinic [Primary Care Provider] - 1-2 days Discharge Disposition: TRANSFER TO SNF/ECF
[2023-03-31 15:24] VITALS: BP 119/76; PULSE 82; TEMP 98
== END 2023-03-31 16:23 | DRG 560 ==
LOC: EC 13:43 → 4SSUR 15:19
PROVIDERS: ADMIT Family Medicine; ATTEND Family Medicine
DX: T84.84XA Pain due to internal orthopedic prosthetic devices, implants and grafts, initial encounter (principal); D62 Acute posthemorrhagic anemia; G43.909 Migraine, unspecified, not intractable, without status migrainosus; M17.11 Unilateral primary osteoarthritis, right knee; E78.5 Hyperlipidemia, unspecified; I48.0 Paroxysmal atrial fibrillation; G47.33 Obstructive sleep apnea (adult) (pediatric); F32.A Depression, unspecified; I10 Essential (primary) hypertension; Z79.01 Long term (current) use of anticoagulants; Z79.82 Long term (current) use of aspirin; Y79.2 Prosthetic and other implants, materials and accessory orthopedic devices associated with adverse incidents; Z79.899 Other long term (current) drug therapy; Z87.891 Personal history of nicotine dependence; Z96.641 Presence of right artificial hip joint; Z96.651 Presence of right artificial knee joint
CPT/HCPCS: 36415; 80053; 85025; 94760; 96374; 99285

== ENCOUNTER 2024-10-29 07:11 | Emergency (ER) | payer OTHER ==
--- NOTE | 2024-10-29 08:14 | XR ---
EXAMINATION TYPE: XR chest 2V DATE OF EXAM: 10/29/2024 8:05 AM COMPARISON: CTA chest November 15, 2022 CLINICAL INDICATION: Male, 79 years old with history of sob, pos covid, TECHNIQUE: Frontal and lateral views of the chest are obtained. FINDINGS: Mild underlying emphysematous changes are present. There is no focal air space opacity, pl eural effusion, or pneumothorax seen. The cardiac silhouette size is upper limits of normal in size. The osseous structures are intact. IMPRESSION: No suspicious acute pulmonary infiltrate. [facility], , 10/29/2024 8:11 AM
--- NOTE | 2024-10-29 08:14 | ED ---
General Adult HPI - General Chief complaint: Shortness of Breath Stated complaint: Covid+,SOB Time Seen by Provider: 10/29/24 07:25 Source: patient, RN notes reviewed, old records reviewed Mode of arrival: ambulatory Limitations: no limitations - History of Present Illness Initial comments: 79-year-old male with recent diagnosis of coronavirus on Friday which is 2 days prior presenting with dyspnea. Patient was started on albuterol and Lagevrio, Paxlovid have been ordered but was too expensive. Patient has fever and chills somewhat reduced appetite. He has cough and mild dyspnea. No history of asthma or COPD. History of atrial fibrillation and he is on Eliquis. - Related Data Home Medications Medication Instructions Recorded Confirmed Aspirin EC [Ecotrin Low Dose] 81 mg PO DAILY 07/19/21 03/28/23 Citalopram Hydrobromide [CeleXA] 20 mg PO DAILY 07/19/21 03/28/23 Multivitamins, Thera [Multivitamin 1 tab PO DAILY 07/19/21 03/28/23 (formulary)] SUMAtriptan succinate [Imitrex] 100 mg PO BID PRN 07/19/21 03/28/23 Simvastatin [Zocor] 40 mg PO HS 07/19/21 03/28/23 buPROPion [Wellbutrin] 75 mg PO TID 07/19/21 03/28/23 Acetaminophen Tab [Tylenol] 500 - 1,000 mg PO Q8H PRN 11/15/22 03/28/23 Cholecalciferol [Vitamin D3 (25 100 mcg PO DAILY 11/15/22 03/28/23 Mcg = 1000 Iu)] lisinopriL [Zestril] 10 mg PO DAILY 11/15/22 03/28/23 Rivaroxaban [Xarelto] 20 mg PO DAILY 03/20/23 03/28/23 Previous Rx's Medication Instructions Recorded Metoprolol Tartrate [Lopressor] 12.5 mg PO BID #60 tab 11/17/22 Nitroglycerin Sl Tabs [Nitrostat] 0.4 mg SUBLINGUAL Q5M PRN #15 tab 11/17/22 Cyclobenzaprine [Flexeril] 10 mg PO HS #20 tab 03/27/23 Acetaminophen Tab [Tylenol] 650 mg PO Q6HR PRN tab 03/31/23 HYDROcodone/APAP 10-325MG [[place] 1 tab PO Q6HR PRN #12 tab 03/31/23 10-325] Allergies Allergy/AdvReac Type Severity Reaction Status Date / Time No Known Allergies Allergy Verified 10/29/24 07:27 Review of Systems ROS Statement: Those systems with pertinent positive or pertinent negative responses have been documented in the HPI. ROS Other: All systems not noted in ROS Statement are negative. Past Medical History Past Medical History: Atrial Fibrillation, Hyperlipidemia, Hypertension, Osteoarthritis (OA), Sleep Apnea/CPAP/BIPAP Additional Past Medical History / Comment(s): migraines, History of Any Multi-Drug Resistant Organisms: None Reported Past Surgical History: Joint Replacement, Tonsillectomy Additional Past Surgical History / Comment(s): SINUS SURGERY, colonoscopy, rt hip replacement Past Anesthesia/Blood Transfusion Reactions: No Reported Reaction, Unable to Obtain Additional Past Anesthesia/Blood Transfusion Reaction / Comment(s): UNKNOWN FAMILY HX, ADOPTED. Past Psychological History: Depression Smoking Status: Former smoker Past Alcohol Use History: None Reported Past Drug Use History: None Reported - Past Family History Father Family Medical History: Unable to Obtain Mother Family Medical History: Unable to Obtain General Exam Limitations: no limitations General appearance: alert, in no apparent distress Head exam: Present: atraumatic, normocephalic Eye exam: Present: normal appearance, PERRL Neck exam: Present: normal inspection. Absent: tenderness, meningismus Respiratory exam: Present: wheezes (Slight wheezing), decreased breath sounds. Absent: respiratory distress Cardiovascular Exam: Present: regular rate, normal rhythm GI/Abdominal exam: Present: soft. Absent: distended, tenderness Neurological exam: Present: alert, oriented X3 Psychiatric exam: Present: normal affect, normal mood Skin exam: Present: warm, dry, intact. Absent: cyanosis, diaphoretic Course Vital Signs 10/29/24 07:25 Temperature 98.4 F Pulse Rate 70 Respiratory 24 Rate Blood Pressure 133/75 O2 Sat by Pulse 98 Oximetry Medical Decision Making - Medical Decision Making Was pt. sent in by a medical professional or institution (, PA, [facility] [employer], urgent care, hospital, or correction...) When possible be specific @ -No Did you speak to anyone other than the patient for history (EMS, parent, family, police, friend...)? What history was obtained from this source @ -No Did you review nursing and triage notes (agree or disagree)? Why? @ -I reviewed and agree with nursing and triage notes Were old charts reviewed (outside hosp., previous admission, EMS record, old EKG, old radiological studies, urgent care reports/EKG's, correction records)? Report findings @ -No old charts were reviewed Differential Dyspnea: Coronary syndrome, arrhythmia, tamponade, asthma, COPD, pulmonary embolism, pneumonia, pneumothorax, pulmonary effusion, anaphylaxis, diabetic ketoacidosis, flailed chest, pulmonary contusion, diaphragmatic rupture, anemia, neuromuscular, this is not meant to be an all-inclusive list. EKG interpreted by me (3pts min.). @ -As above X-rays interpreted by me (1pt min.). @Chest x-ray negative for pneumothorax, no consolidated pneumonia or infiltrate CT interpreted by me (1pt min.). @ -None done U/S interpreted by me (1pt. min.). @ -None done What testing was considered but not performed or refused? (CT, X-rays, U/S, labs)? Why? @ -None What meds were considered but not given or refused? Why? @ -None Did you discuss the management of the patient with other professionals (professionals i.e. , PA, [employer] [facility] [employer], lab, RT, psych nurse, social media senior associate, tank welder, teacher, chief diversity officer, family preservation caseworker)? Give summary @ -No Was smoking cessation discussed for >3mins.? @ -No Was critical care preformed (if so, how long)? @ -No Were there social determinants of health that impacted care today? How? (Homelessness, low income, unemployed, alcoholism, drug addiction, transportation, low edu. Level, literacy, decrease access to med. care, [place] [facility], rehab)? @ -No Was there de-escalation of care discussed even if they declined (Discuss DNR or withdrawal of care, Hospice)? DNR status @ -No What co-bidities impacted this encounter? (DM, HTN, Smoking, COPD, CAD, Cancer, CVA, ARF, Chemo, Hep., AIDS, mental health diagnosis, sleep apnea, morbid obesity)? @ -Atrial fibrillation Was patient admitted / discharged? Hospital course, mention meds given and route, prescriptions, significant lab abnormalities, going to OR and other pertinent info. @ -79-year-old male with a 3-day history of cough, congestion, fever and chills with a diagnosis of coronavirus. Patient is on antiviral and has an albuterol inhaler. He is otherwise well-appearing with no respiratory distress. Patient will continue medications as prescribed and follow-up with his primary care provider. Undiagnosed new problem with uncertain prognosis? @ -No Drug Therapy requiring intensive monitoring for toxicity (Heparin, Nitro, Insulin, Cardizem)? @ -No Were any procedures done? @ -No Diagnosis/symptom? @Coronavirus Acute, or Chronic, or Acute on Chronic? @ -Acute Uncomplicated (without systemic symptoms) or Complicated (systemic symptoms)? @ -Default Side effects of treatment? @ -No Exacerbation, Progression, or Severe Exacerbation? @ -No Poses a threat to life or bodily function? How? (Chest pain, [place], [place], pneumonia, PE, COPD, DKA, ARF, appy, cholecystitis, CVA, Diverticulitis, Homicidal, Suicidal, threat to staff... and all critical care pts) @Low risk at this time Disposition Clinical Impression: COVID-19 Disposition: HOME SELF-CARE Condition: Fair Instructions (If sedation given, give patient instructions): COVID-19 (Coronavirus Disease 2019) (ED) Is patient prescribed a controlled substance at d/c from ED?: No Referrals: Javed Quintanilla DO [Primary Care Provider] - 1-2 days Time of Disposition: 08:15
[2024-10-29 08:56] VITALS: BP 107/76; PULSE 64; RESP 22; TEMP 98.5
== END 2024-10-29 08:55 | disposition home or self-care (01) ==
LOC: EC 07:11
DX: U07.1 COVID-19 (principal); I11.9 Hypertensive heart disease without heart failure; I48.91 Unspecified atrial fibrillation; Z87.891 Personal history of nicotine dependence
CPT/HCPCS: 71046; 99284

== ENCOUNTER → 2025-03-09 | Outpatient (CLI) | payer OTHER | END | disposition home or self-care (01) | LOC: LABWHC1 09:59 | PROVIDERS: ATTEND Orthopaedic Surgery | DX: Z01.812 Encounter for preprocedural laboratory examination (principal); M17.12 Unilateral primary osteoarthritis, left knee; Z22.322 Carrier or suspected carrier of Methicillin resistant Staphylococcus aureus | CPT/HCPCS: 87070 ==